=== PATIENT | female | born 1940 | race Caucasian/White ===

== ENCOUNTER 2022-08-23 15:39 | Inpatient (IN) ==
[2022-08-23] MEDS ORDERED: SODIUM CHLORIDE 0.9% 1000ML 1,000 ML IV ONE (16:21)
--- NOTE | 2022-08-23 16:21 | Emergency Department Note ---
History of Present Illness General Chief complaint: Abdominal Pain Stated complaint: AB PAIN Time Seen by Provider: 08/23/22 16:06 History of Present Illness Maximum Pain Intensity: 3 82-year-old female presents to the ED with a chief complaint, per the half-way staff of a distended abdomen. The patient has a history of dementia. She is a poor historian. She is unable to provide any information. When questioned, she states that she feels fine. Home Medications Medication Instructions Recorded Confirmed Type acetaminophen 325 mg tablet 650 mg PO DAILY #90 tabs 04/03/19 08/23/22 Rx aspirin 81 mg chewable tablet 81 mg PO DAILY #90 tabs 04/03/19 08/23/22 Rx calcium carbonate 600 mg-vitamin 1 cap PO BID #180 caps 04/03/19 08/23/22 Rx D3 10 mcg (400 unit) capsule cetirizine 10 mg tablet 10 mg PO DAILY #90 tabs 04/03/19 08/23/22 Rx ergocalciferol (vitamin D2) 1,250 50,000 units PO WK #12 caps 04/22/19 08/23/22 Rx mcg (50,000 unit) capsule donepezil 10 mg tablet 10 mg PO DAILY 12/11/20 08/23/22 History acetaminophen 325 mg tablet 650 mg PO Q6 PRN Fever Or Pain 08/23/22 08/23/22 History doxepin 6 mg tablet 6 mg PO HS 08/23/22 08/23/22 History levothyroxine 75 mcg tablet 75 mcg PO DAILY 08/23/22 08/23/22 History melatonin 3 mg tablet 3 mg PO HS 08/23/22 08/23/22 History memantine 10 mg tablet 10 mg PO Q12 08/23/22 08/23/22 History cixiuuflwhhm-wolykunz-umkzjk 1 tab PO DAILY 08/23/22 08/23/22 History tablet (Multivitamin 50 Plus tablet) nitroglycerin 0.4 mg sublingual 0.4 mg sublingual Q5M PRN Chest 08/23/22 08/23/22 History tablet Pain potassium chloride 20 mEq 40 meq PO BID 08/23/22 08/23/22 History tablet,extended release(part/cryst) protein supplement 1 ea PO DAILY 08/23/22 08/23/22 History Allergies Allergy/AdvReac Type Severity Reaction Status Date / Time No Known Allergies Allergy Unverified 08/23/22 18:06 Past Med/Surg History Medical History (Updated 08/23/22 @ 23:39 by Raúl Busby DO) Anxiety Arteriosclerosis of coronary artery Benign essential hypertension Dementia Depression History of esophageal reflux Hyperlipidemia Insomnia Osteoporosis Vitamin D deficiency Social History (Updated 08/23/22 @ 21:25 by AUGUSTINE Newell) Smoking Status: Former smoker Hx Alcohol Use: No Preferred Language: [place] marital status: / Current Living Situation: Other Current Living Situation Comment: Assisted Living - [facility] current occupational status: retired Feels Safe at Home: Yes Childhood Exposure to Second-Hand Smoke: No Physical Activity Frequency: Daily Review of Systems A total of 10 systems reviewed and were otherwise negative Unobtainable due to cognitive status Physical Exam Vital Signs Vital Signs - 24 hr 08/23/22 15:14 08/23/22 17:12 Pulse Rate 117 H Pulse Rate [Left Finger] 124 H Pulse Rhythm Regular Pulse Strength Normal Respiratory Rate 20 24 Respiratory Effort / Characteristics Non-Labored Respiratory Depth Normal Respiratory Pattern Regular Blood Pressure 154/83 H Blood Pressure [Left Arm] 160/102 H Blood Pressure Mean 106 Blood Pressure Mean [Left Arm] 121 Blood Pressure Position [Left Arm] Lying Pulse Oximetry 92 94 Oxygen Delivery Method Room Air Sepsis Recent Fever Within 48 Hours No Sepsis New/Unexplained Change in Mental Status No Sepsis Action Taken by Nursing No Action Required CONSTITUTIONAL/VITAL SIGNS: Reviewed / noted above. GENERAL: Non-toxic in appearance. INTEGUMENTARY: Warm, dry, and [place]. HEAD: Normocephalic. EYES: without scleral icterus or trauma. ENT/OROPHARYNX: clear and moist. LYMPHADENOPATHY/NECK: Is supple without lymphadenopathy or meningismus. RESPIRATORY: Clear to auscultation bilaterally. No increased work of breathing. CARDIOVASCULAR: Regular rate and rhythm. GI/ABDOMEN: Distended tympanitic and mildly tender. EXTREMITIES: Warm and well perfused. NEUROLOGICAL: Intact without focal deficits. PSYCHIATRIC: normal affect. MUSCULOSKELETAL: Normally developed with good muscle tone. TRIAGE NURSING DOCUMENTATION REVIEWED. Course Administered Medications Propofol (Diprivan) 1,000 mg in 100 mls @ 9.756 mls/hr IV .[id number] ELIAS; Protocol Stop: 08/26/22 20:29 Last Titration: 08/23/22 22:32 Dose: 30 mcg/kg/min, 9.8 mls/hr Documented By: Titration: 08/23/22 22:26 Dose: 35 mcg/kg/min, 11.4 mls/hr Documented By: Titration: 08/23/22 21:20 Dose: 30 mcg/kg/min, 9.8 mls/hr Documented By: Titration: 08/23/22 21:08 Dose: 25 mcg/kg/min, 8.1 mls/hr Documented By: Admin: 08/23/22 20:43 Dose: 20 mcg/kg/min, 6.5 mls/hr Documented By: TMG Co-signed By: TP Lactated Ringer's (Lr) 1,000 mls @ 100 mls/hr IV .Q10H [facility] Stop: 09/22/22 20:36 Last Admin: 08/23/22 21:08 Dose: 100 mls/hr Documented By: TMG Cefoxitin Sodium 2,000 mg/ (Dextrose) 60 mls @ 100 mls/hr IV Q6H [facility] Stop: 09/02/22 20:59 Last Admin: 08/23/22 23:20 Dose: 100 mls/hr Documented By: TMG Fentanyl Citrate (Fentanyl Citrate) 2,500 mcg in 250 mls @ 2.5 mls/hr IV .Q96H [facility]; Protocol Stop: 09/06/22 21:59 Last Admin: 08/23/22 22:26 Dose: 25 mcg/hr, 2.5 mls/hr Documented By: TMG Co-signed By: JT Discontinued Medications Fentanyl Citrate (Fentanyl Citrate 100 Mcg/2 Ml Vial) 25 mcg IV Q5M PRN PRN Reason: PACU Use Only-Pain Stop: 08/24/22 02:49 Last Admin: 08/23/22 20:43 Dose: 25 mcg Documented By: TMG Fentanyl Citrate (Fentanyl Citrate 100 Mcg/2 Ml Vial) 25 mcg IV Q1H PRN PRN Reason: Moderate Pain (4,5,6) on NRS Stop: 09/06/22 21:41 Last Admin: 08/23/22 21:56 Dose: 25 mcg Documented By: TMG Sodium Chloride (Nss 1000ml) 1,000 mls @ 999 mls/hr IV .Q1H1M ONE Stop: 08/23/22 17:21 Last Admin: 08/23/22 17:12 Dose: 999 mls/hr Documented By: JESSICA Potassium Chloride (K Lio / Wtr) 10 meq in 100 mls @ 100 mls/hr IV ONE ONE; Protocol Stop: 08/23/22 18:15 Last Admin: 08/23/22 17:53 Dose: 100 mls/hr Documented By: ALICIA Potassium Chloride (K Lio / Wtr) 10 meq in 100 mls @ 100 mls/hr IV Q1H [facility]IAS Stop: 08/23/22 21:59 Last Admin: 08/23/22 23:18 Dose: Not Given Documented By: Admin: 08/23/22 23:18 Dose: Not Given Documented By: Admin: 08/23/22 22:20 Dose: Not Given Documented By: TMG Pantoprazole Sodium 40 mg/ (Syringe) 10 mls @ 5 mls/min IV NOW ONE Stop: 08/23/22 21:31 Last Admin: 08/23/22 23:20 Dose: 5 mls/min Documented By: TMG Norepinephrine Bitartrate (Norepinephrine/D5w 4 Mg/250 Ml) Confirm Administered Dose 4 mg IV .STK-MED ONE Stop: 08/23/22 22:25 Last Admin: 08/23/22 23:35 Dose: Not Given Documented By: TMG Medical Decision Making Differential Diagnosis Differential considered: pancreatitis, hepatitis, acute cholecystitis, AAA, UTI, pyelonephritis, kidney stones, appendicitis, diverticulitis, shingles, bowel obstruction, mesenteric ischemia, intussusception,hernia Medical Records Attestation: I reviewed the patient's medical records. Home Medications Current Medication List: was personally reviewed by me Laboratory Data Result diagrams: 08/23/22 15:50 08/23/22 22:20 Lab Results 08/23/22 08/23/22 08/23/22 Range/Units 15:50 15:50 15:50 WBC 23.65 H (4.8-10.8) K/ul RBC 5.31 H (3.93-5.22) M/uL Hgb 15.5 (12.0-16.0) g/dl Hct 46.9 H (34.1-44.9) % MCV 88.3 (80.0-100.0) fL MCH 29.2 (25.0-34.0) pg MCHC 33.0 (32.0-36.0) g/dL RDW Std Deviation 46.2 (36.4-46.3) fL RDW Coeff of Jeremi 14.4 (11.5-14.5) % Plt Count 248 (130-400) K/uL MPV 11.0 (9.4-12.3) fL Immature Gran % (Auto) 0.6 % Neut % (Auto) 89.4 % Lymph % (Auto) 2.0 % [place] % (Auto) 7.7 % Eos % (Auto) 0.0 % Baso % (Auto) 0.3 % Neut # (Auto) 21.14 H (1.4-6.5) K/uL Lymph # (Auto) 0.47 L (1.2-3.4) K/uL [place] # (Auto) 1.82 H (0.24-0.82) K/uL Eos # (Auto) 0.01 (0-0.50) K/uL Baso # (Auto) 0.07 (0-0.2) K/uL Immature Gran # (Auto) 0.14 H (0.00-0.02) K/uL Sodium 134 L (136-145) mmol/L Potassium 2.3 L* (3.5-5.1) mmol/L Chloride 100 (98-107) mmol/L Carbon Dioxide 23 (21-32) mmol/L Anion Gap 11 (3-11) BUN 23 (6-23) mg/dl Creatinine 0.77 (0.6-1.2) mg/dl Est Cr Clr Drug Dosing 41.9 ml/min Est GFR ( Amer) 84.5 ml/min Est GFR (Non-Af Amer) 72.9 ml/min BUN/Creatinine Ratio 29.9 H (10-20) Glucose 221 H (70-99(Fasting)) mg/dl Calcium 9.8 (8.5-10.1) mg/dl Total Bilirubin 0.8 (0.2-1.0) mg/dl AST 17 (13-39) U/L ALT 16 (7-52) U/L Alkaline Phosphatase 68 (34-104) U/L Total Protein 7.4 (6.0-8.3) gm/dl Albumin 4.2 (3.4-5.0) gm/dl Globulin 3.2 (2.5-4.0) gm/dl Albumin/Globulin Ratio 1.3 (0.9-2) Lipase 6 L (11-82) U/L SARS-CoV-2 (PCR) (Negative) Influenza Type A (PCR) (Neg) Influenza Type B (PCR) (Neg) RSV (RT-PCR) (Neg) 08/23/22 Range/Units 17:28 WBC (4.8-10.8) K/ul RBC (3.93-5.22) M/uL Hgb (12.0-16.0) g/dl Hct (34.1-44.9) % MCV (80.0-100.0) fL MCH (25.0-34.0) pg MCHC (32.0-36.0) g/dL RDW Std Deviation (36.4-46.3) fL RDW Coeff of Jeremi (11.5-14.5) % Plt Count (130-400) K/uL MPV (9.4-12.3) fL Immature Gran % (Auto) % Neut % (Auto) % Lymph % (Auto) % [place] % (Auto) % Eos % (Auto) % Baso % (Auto) % Neut # (Auto) (1.4-6.5) K/uL Lymph # (Auto) (1.2-3.4) K/uL [place] # (Auto) (0.24-0.82) K/uL Eos # (Auto) (0-0.50) K/uL Baso # (Auto) (0-0.2) K/uL Immature Gran # (Auto) (0.00-0.02) K/uL Sodium (136-145) mmol/L Potassium (3.5-5.1) mmol/L Chloride (98-107) mmol/L Carbon Dioxide (21-32) mmol/L Anion Gap (3-11) BUN (6-23) mg/dl Creatinine (0.6-1.2) mg/dl Est Cr Clr Drug Dosing ml/min Est GFR ( Amer) ml/min Est GFR (Non-Af Amer) ml/min BUN/Creatinine Ratio (10-20) Glucose (70-99(Fasting)) mg/dl Calcium (8.5-10.1) mg/dl Total Bilirubin (0.2-1.0) mg/dl AST (13-39) U/L ALT (7-52) U/L Alkaline Phosphatase (34-104) U/L Total Protein (6.0-8.3) gm/dl Albumin (3.4-5.0) gm/dl Globulin (2.5-4.0) gm/dl Albumin/Globulin Ratio (0.9-2) Lipase (11-82) U/L SARS-CoV-2 (PCR) NEGATIVE (Negative) Influenza Type A (PCR) Negative (Neg) Influenza Type B (PCR) Negative (Neg) RSV (RT-PCR) Negative (Neg) Imaging Data Radiologist's Impression: Abdomen/Pelvis CT 08/23/22 16:[address] WITHOUT CONTRAST CT DOSE: 393.80 mGy.cm HISTORY: Abdominal distention. TECHNIQUE: Multiaxial CT images of the abdomen and pelvis were performed without contrast. A dose lowering technique was utilized adhering to the principles of ALARA. COMPARISON STUDY: None. FINDINGS: Motion artifact. The lung bases appear clear. There is mild elevation of the left hemidiaphragm. Mildly distended and fluid-filled distal esophagus. No pneumoperitoneum. No pneumatosis. Old, healed bilateral pubic bone fractures are noted. Partially visualized healing midsternal fracture. The unenhanced liver, gallbladder, spleen, adrenal glands, left kidney, and pancreas are unremarkable. There is a 1.7 cm exophytic hypodense lesion within the right kidney. This favors a cyst. No retroperitoneal lymphadenopathy. Calcified plaque within the normal caliber abdominal aorta. The bladder is unremarkable. The uterus is surgically absent. Severely distended sigmoid colon with a transition point at the distal sigmoid colon best seen on image 279. Therefore, this is consistent with a high-grade distal large bowel obstruction with the con figuration suggesting a sigmoid volvulus. There is mild edema adjacent to the severely distended sigmoid colon. No evidence for portal venous gas at this time. The distended sigmoid colon measures up to 13 cm in diameter. A few gas- filled mildly distended loops of small bowel are seen within the abdomen. The majority the colon is filled with gas and fluid. IMPRESSION: Severely distended sigmoid colon with a transition point at the distal sigmoid colon as described above. Therefore, this is consistent with a high-grade distal large bowel obstruction with the configuration suggesting a sigmoid volvulus. Urgent surgical consultation recommended. ACT 112: Negative or not required by law. Electronically signed by: Edwin Diamond M.D. 08/23/2022 5:02 PM MDM Narrative 82-year-old female presents with abdominal distention. She has dementia and is unreliable with regards to history and complaint. She does have a distended tympanitic abdomen on exam. Seems to be a little tender. CT scan shows a sigmoid volvulus. Reports her count is elevated. Chemistry panel was unremarkable. Patient was seen by general surgery and taken to the OR. Impression & Plan Bowel obstruction, Sigmoid volvulus Discharge Plan Visit Data Chief Complaint: Abdominal Pain Stated Complaint: AB PAIN ED Provider: Raúl Busby Discharge Problem: Bowel obstruction, Sigmoid volvulus Discharge Instructions Interventions: ED Discharge Assessment Last Done: 08/23/22 18:54
[2022-08-23 16:39] LABS: Basophils # (auto) 0.07 K/uL (0-0.2); Basophils % (auto) 0.3 %; Eosinophils # (auto) 0.01 K/uL (0-0.50); Hematocrit (blood only) 46.9 % (34.1-44.9); Hemoglobin 15.5 g/dl (12.0-16.0); Immature Granulocytes # (auto) 0.14 K/uL (0.00-0.02); Immature Granulocytes % (auto) 0.6 %; Lymphocytes # (auto) 0.47 K/uL (1.2-3.4); Mean Corpuscular Hemoglobin 29.2 pg (25.0-34.0); Mean Corpuscular Volume 88.3 fL (80.0-100.0); Monocytes # (auto) 1.82 K/uL (0.24-0.82); Monocytes % (auto) 7.7 %; Neutrophils # (auto) 21.14 K/uL (1.4-6.5); Neutrophils % (auto) 89.4 %; Platelet Count 248 K/uL (130-400); RDW Coefficient of Variation 14.4 % (11.5-14.5); RDW Standard Deviation 46.2 fL (36.4-46.3); Red Blood Count 5.31 M/uL (3.93-5.22); White Blood Count 23.65 K/ul (4.8-10.8)
[2022-08-23 17:03] LABS: Albumin Globulin Ratio 1.3 (0.9-2); Albumin Level 4.2 gm/dl (3.4-5.0); BUN Creatinine Ratio 29.9 (10-20); Bilirubin,Total 0.8 mg/dl (0.2-1.0); Calcium 9.8 mg/dl (8.5-10.1); Creatinine Clr Calc Pharmacy 41.9 ml/min; Est GFR (African American) 84.5 ml/min; Est GFR (Non-African American) 72.9 ml/min; Globulin 3.2 gm/dl (2.5-4.0); Total Protein 7.4 gm/dl (6.0-8.3)
--- NOTE | 2022-08-23 17:04 | CT Scan Report ---
ABDOMEN AND PELVIS CT WITHOUT CONTRAST CT DOSE: 393.80 mGy.cm HISTORY: Abdominal distention. TECHNIQUE: Multiaxial CT images of the abdomen and pelvis were performed without contrast. A dose lo wering technique was utilized adhering to the principles of ALARA. COMPARISON STUDY: None. FINDINGS: Motion artifact. The lung bases appear clear. There is mild elevation of the left hemidiaph ragm. Mildly distended and fluid-filled distal esophagus. No pneumoperitoneum. No pneumatosis. Old, h ealed bilateral pubic bone fractures are noted. Partially visualized healing midsternal fracture. The unenhanced liver, gallbladder, spleen, adrenal glands, left kidney, and pancreas are unremarkable. T here is a 1.7 cm exophytic hypodense lesion within the right kidney. This favors a cyst. No retroperi toneal lymphadenopathy. Calcified plaque within the normal caliber abdominal aorta. The bladder is un remarkable. The uterus is surgically absent. Severely distended sigmoid colon with a transition point at the distal sigmoid colon best seen on image 279. Therefore, this is consistent with a high-grade distal large bowel obstruction with the configuration suggesting a sigmoid volvulus. There is mild ed max adjacent to the severely distended sigmoid colon. No evidence for portal venous gas at this time. The distended sigmoid colon measures up to 13 cm in diameter. A few gas-filled mildly distended loop s of small bowel are seen within the abdomen. The majority the colon is filled with gas and fluid. IMPRESSION: Severely distended sigmoid colon with a transition point at the distal sigmoid colon as described abo ve. Therefore, this is consistent with a high-grade distal large bowel obstruction with the configura tion suggesting a sigmoid volvulus. Urgent surgical consultation recommended. ACT 112: Negative or not required by law. Electronically signed by: Edwin Diamond M.D. 08/23/2022 5:02 PM
[2022-08-23] MEDS ORDERED: POTASSIUM CHLORIDE / WTR 10 MEQ/100 ML PLCT IV ONE (17:16)
[2022-08-23 17:18] LABS: Potassium 2.3 mmol/L (3.5-5.1)
--- NOTE | 2022-08-23 17:33 | History & Physical Report ---
Date of Service August 23, 2022 Assessment & Plan (1) Sigmoid volvulus: Plan: Patient seen CT scan reviewed. Patient at extremely high risk of colonic perforation. This would not be amenable to colonoscopic decompression. I discussion with patient's son to him. This will need to be resected with likely a permanent colostomy. We discussed bleeding infection injury to other organs such as ureter bladder bowel etc. We discussed DVT PE MA CVA etc. He gave con sent. We will proceed with exploratory laparotomy partial bowel resection with anticipated colostomy as soon as possible. (2) Dementia: Dementia behavioral disturbance: without behavioral disturbance Dementia type: unspecified type Qualified Code(s): F03.90 - Unspecified dementia without behavioral disturbance History of Present Illness Primary Care Provider: [facility] Patient brought in from Center care with abdominal pain and distention. Patient with dementia and is unable to give history. Allergies Allergy/AdvReac Type Severity Reaction Status Date / Time No Known Allergies Allergy Unverified 12/11/20 15:06 Home Medications Medication Instructions Recorded Confirmed Type dextromethorphan polistirex 30 10 ml PO Q12H PRN cough #148 mL 02/02/19 12/11/20 Rx mg/5 mL oral susp ext.release 12hr (Delsym 12 hour) acetaminophen 325 mg tablet 650 mg PO DAILY #90 tabs 04/03/19 12/11/20 Rx aspirin 81 mg chewable tablet 81 mg PO DAILY #90 tabs 04/03/19 12/11/20 Rx calcium carbonate 600 mg-vitamin 1 cap PO BID #180 caps 04/03/19 12/11/20 Rx D3 10 mcg (400 unit) capsule cetirizine 10 mg tablet 10 mg PO DAILY #90 tabs 04/03/19 12/11/20 Rx fluticasone propionate 50 2 sprays intranasal DAILY #47.4 04/03/19 12/11/20 Rx mcg/actuation nasal grams spray,suspension memantine 10 mg tablet 10 mg PO BID #180 tabs 04/03/19 12/11/20 Rx mirtazapine 15 mg tablet 15 mg PO HS #90 tabs 04/03/19 12/11/20 Rx nitroglycerin 0.4 mg sublingual 0.4 mg sublingual Q5M #20 tabs 04/03/19 12/11/20 Rx tablet ergocalciferol (vitamin D2) 1,250 50,000 units PO WK #12 caps 04/22/19 12/11/20 Rx mcg (50,000 unit) capsule Saccharomyces boulardii 250 mg 250 mg PO BID #20 caps 12/11/20 Rx capsule (Florastor) alendronate 70 mg tablet 70 mg PO UD 12/11/20 12/11/20 History donepezil 10 mg tablet 10 mg PO DAILY 12/11/20 12/11/20 History doxepin 25 mg capsule 25 - 50 mg PO HS PRN sleep 12/11/20 12/11/20 History simvastatin 10 mg tablet 10 mg PO HS 12/11/20 12/11/20 History Past Med/Surg History Medical History (Updated 08/23/22 @ 17:38 by Lino Larson DO) Dementia Hyperlipidemia Social History Smoking Status: Unknown if ever smoked Hx Alcohol Use: No Preferred Language: Japanese marital status: / Current Living Situation: Other Current Living Situation Comment: Assisted Living - [facility] current occupational status: retired Feels Safe at Home: Yes Childhood Exposure to Second-Hand Smoke: No Physical Activity Frequency: Daily Review of Systems Patient with severe dementia unable to provide Physical Exam Physical Exam: Patient awake and alert but disoriented. Moderately uncomfortable. ENMT: Dry mucous membranes Respiratory: Clear to auscultation bilaterally Cardiovascular: Sinus tachycardia Gastrointestinal (Abdomen): Tympanitic. Severely distended. Acutely tender in all 4 quadrants Skin: Decreased turgor Results & Data ([facility]) Vital Signs (Past 12 Hours) Vital Signs Pulse Pulse Resp BP BP Pulse Ox O2 Del Method 08/23/22 17:12 124 H 24 160/102 H 94 08/23/22 15:14 117 H 20 154/83 H 92 Room Air
[2022-08-23] MEDS ORDERED: PROPOFOL IV EMULSION 10 MG/ML 20 ML VIAL IV ONE (18:19)
[2022-08-23] MEDS ORDERED: fentaNYL citrate 100 MCG/2 ML VIAL ONE (18:19)
[2022-08-23] MEDS ORDERED: SUCCINYLCHOLINE CHLORIDE 20 MG/ML 10 ML VIAL IV ONE (18:19)
[2022-08-23] MEDS ORDERED: LIDOCAINE 2% MPF LOCAL 5 ML VIAL INFIL ONE (18:19)
[2022-08-23] MEDS ORDERED: ROCURONIUM BROMIDE 10 MG/ML 5 ML VIAL IV ONE (18:19)
--- NOTE | 2022-08-23 18:41 | Anesthesiology Consultation ---
Date of Service August 23, 2022 Assessment & Plan Chart Review Chart Review: Acceptable Risk for Surgery Consults Requested none History Surgery Operation Date: 08/23/22 17:45 Proposed Procedures p Exploratory Laparotomy - Lino Larson DO Operation Date: 08/24/22 09:00 Proposed Procedures p Exploratory Laparotomy - Lino Larson DO s Possible Bowel Resection Possible Colostomy - Lino Larson DO Height/Weight Height: 5 ft Weight: 54.2 kg Allergies Allergy/AdvReac Type Severity Reaction Status Date / Time No Known Allergies Allergy Unverified 08/23/22 18:06 Medications Home Medications Medication Instructions Recorded Confirmed Last Taken acetaminophen 325 mg tablet 650 mg PO DAILY #90 tabs 04/03/19 08/23/22 08/23/22 am aspirin 81 mg chewable tablet 81 mg PO DAILY #90 tabs 04/03/19 08/23/22 08/22/22 am calcium carbonate 600 mg-vitamin 1 cap PO BID #180 caps 04/03/19 08/23/22 08/23/22 D3 10 mcg (400 unit) capsule am cetirizine 10 mg tablet 10 mg PO DAILY #90 tabs 04/03/19 08/23/22 08/23/22 am ergocalciferol (vitamin D2) 1,250 50,000 units PO WK #12 caps 04/22/19 08/23/22 08/17/22 mcg (50,000 unit) capsule donepezil 10 mg tablet 10 mg PO DAILY 12/11/20 08/23/22 08/23/22 am acetaminophen 325 mg tablet 650 mg PO Q6 PRN Fever Or Pain 08/23/22 08/23/22 Unknown doxepin 6 mg tablet 6 mg PO HS 08/23/22 08/23/22 08/22/22 20:30 levothyroxine 75 mcg tablet 75 mcg PO DAILY 08/23/22 08/23/22 08/23/22 melatonin 3 mg tablet 3 mg PO HS 08/23/22 08/23/22 08/22/22 memantine 10 mg tablet 10 mg PO Q12 08/23/22 08/23/22 08/23/22 08:30 epfhecihbhiq-ivgubpno-xxvawu 1 tab PO DAILY 08/23/22 08/23/22 08/23/22 tablet (Multivitamin 50 Plus am tablet) nitroglycerin 0.4 mg sublingual 0.4 mg sublingual Q5M PRN Chest 08/23/22 08/23/22 Unknown tablet Pain potassium chloride 20 mEq 40 meq PO BID 08/23/22 08/23/22 Unknown tablet,extended release(part/cryst) protein supplement 1 ea PO DAILY 08/23/22 08/23/22 08/23/22 Past Medical History Medical History (Updated 08/23/22 @ 17:38 by Lino Larson, DO) Dementia Hyperlipidemia Social History Smoking Status: Unknown if ever smoked Hx Alcohol Use: No Physical Exam Vital Signs Last Vital Signs Pulse 124 H 08/23/22 17:12 Resp 24 08/23/22 17:12 BP 160/102 H 08/23/22 17:12 Pulse Ox 94 08/23/22 17:12 O2 Del Method 08/23/22 15:14 Testing Laboratory Results 08/23/22 15:50 08/23/22 15:50
[2022-08-23 18:42] LABS: Influenza A virus by PCR Negative (Neg); Influenza B virus by PCR Negative (Neg); RSV by PCR Negative (Neg); SARS CoV2 RNA(COVID-19) Ceph NEGATIVE (Negative)
[2022-08-23] MEDS ORDERED: fentaNYL citrate 100 MCG/2 ML VIAL IV PRN ×2 (18:49→21:42)
[2022-08-23] MEDS ORDERED: ePHEDrine sulfate 50 MG/ML AMP IV PRN (18:49)
[2022-08-23] MEDS ORDERED: PROMETHAZINE HCL 12.5 MG in SODIUM CHLORIDE 0.9% 50 ML IV PRN (18:49)
[2022-08-23] MEDS ORDERED: HYDROmorphone INJ 1 MG/ML SYRINGE IV PRN (18:49)
[2022-08-23] MEDS ORDERED: ATROPINE SULFATE 0.1 MG/ML 10ML SYR IV PRN (18:49)
[2022-08-23] MEDS ORDERED: ONDANSETRON INJ 2 MG/ML 2 ML VIAL IV PRN ×2 (18:49→20:37)
[2022-08-23] MEDS ORDERED: PHENYLEPHRINE 100MCG/ML 5ML SYR ONE (19:16)
[2022-08-23] MEDS ORDERED: ESMOLOL HCL INJ 10 MG/ML 10ML VIAL IV ONE (20:11)
[2022-08-23] MEDS ORDERED: GLUCOSE 10 TAB/TUBE PO PRN (20:30)
[2022-08-23] MEDS ORDERED: CARBOHYDRATES FOR HYPOGLYCEMIA PO PRN (20:30)
[2022-08-23] MEDS ORDERED: DEXTROSE 50% 50 ML SYRINGE IV PRN (20:30)
[2022-08-23] MEDS ORDERED: GLUCAGON FOR INJ 1 MG VIAL SQ PRN (20:30)
[2022-08-23] MEDS ORDERED: PROPOFOL BOLUS FROM BAG IV PRN (20:30)
[2022-08-23] MEDS ORDERED: STAT IV Infusion **Titration per Protocol STA ×2 (20:30→21:58)
[2022-08-23] MEDS ORDERED: GLUCOSE 40% GEL 15 GM TUBE PO PRN (20:30)
--- NOTE | 2022-08-23 20:34 | Critical Care Consultation ---
Date of Consultation August 23, 2022 Assessment & Plan (1) Sigmoid volvulus: (2) Endotracheally intubated: (3) Osteoporosis: (4) History of esophageal reflux: (5) Benign essential hypertension: (6) Hyperlipidemia: (7) Dementia: (8) Hypokalemia: (9) Elevated glucose level: Plan Reason Critically Ill: 82 YOF taken urgently to operating suite for severe sigmoid distention with high grade bowel obstruction and likely sigmoid volvus. Patient remained intubated following procedure and was transferred to ICU for follow on care. Continue with potassium and other electrolyte replacments, sedation and pain control. Neuro - Sedation for mechanical ventilation, acute pain from surgical procedure, Dementia, Depression CAM ICU: JANES - Patient with baseline dementia with record review shows a baseline of awareness to self and able to answer simple questions - Sedation with propofol, pain control with IV fentanyl while intubated - Daily sedation breaks - Likely high risk for ICU delirium - Continue Donepazil and Memantine when able to take PO - Continue Doxepin when able to take PO for her depression Cardiac - CAD history of, HTN, HLD, Tachycardia - Received 1.4 liters crystalloid in the OR- will continue with maintenance fluids- Ringers while NPO - Tachycardia multifactorial to include acute pain, mild hypovolemia, electrolyte disturbance- no evidence of hemodynamic instability or need for pressors- lactate on arrival - unsure of her CAD history or previous evaluations- can institute BB if needed for rate control if needed - pain control as above, continue supportive care- ECG is without any ST elevati ons or ectopy - ASA when able to take PO Respiratory - Intubated for surgical procedure, mechanically ventilated - Daily SBT and likely liberate from ventilator in morning - Xray reviewed by self- no pulmonary edema, adequate placement of ETT and NGT - ARDSnet ventilation strategy- 6ml/kg VT, wean Fio2 - Daily CXR while intubated GI - GERD - PPI while NPO RENAL/LYTES - Hypokalemia - acute on chronic hypokalemia- continue with IV replacement, no ectopy/ECG changes- - Ramirez to gravity - remove when extubated - UA on arrival ENDO - Elevated serum glucose without diagnosis of diabetes, Hypothyroidism - ICU hyperglycemia protocol- Goal < 180mg/DL - Follow Potassium levels - Hold Synthroid while NPO- convert to IV with reduction in dose if needed HEME - No acute needs ID - - emperic Mefoxin per surgical team- defer further abx to them at this time LINES/IV ACCESS - PIV, Ramirez, NGT, ETT Continue use of these lines DVT PROPHYLAXIS - SCDS, Hold on chemoprophylaxis at this time- likely institute in morning DISPO : ICU while intubated and mechanically ventilated Diet: NPO CODE Status: DNR/DNI GI Prophy- IV PPI I have personally spent 40 minutes of critical care time in the direct management of this patient. This is a life/limb threatening event. This includes time spent evaluating patient, direct bedside care, chart review, placing orders, interpretation of diagnostic studies, discussion with consultants, patient, and family members, as well as other required patient management activities. This time is exclusive of all separately billable procedures, and separate from and in addition to any other critical care service time. Thank you for allowing us to participate in the care of this patient. Please refer to my attending physician's documentation for any further recommendations. History of Present Illness Reason for Consultation: Intubated mechanically ventilated Requesting Physician: Lino Larson Attending Physician: Lino Larson, History of Present Illness 82 YOF resident at [facility]. Medical Problem list noted with Dementia, CAD, HTN, Anxiety, HLD, Insomnia, Osteopetrosis, Vitamin D Def. Patient presents for concerns of abdominal pain and distention. Patient POC is Thomas Odell. Patient was evaluated in the EMD with routine labs noting leukocytosis, and hypokalemia. CT scan of abdomen and pelvis was also performed noting severe distention of sigmoid colon and high grade large bowel obstruction with likely volvulus of sigmoid. The patient had urgent surgical consultation and patient was taken to the operating suite. Patient underwent exploratory laparotomy, reduction of sigmoid volvulus, sigmoid colon resection with endo colostomy. Patient was left intubated and transferred to the ICU. On arrival she is with 7.0 ETT at 21 teeth in good placement noted on Xray. She is with NGT to LIWS also in good placement noted on chest film go below diaphragm and directed to stomach. She was given 1.4 liters of crystalloid during the case and is making urine. Will continue with pain control, sedation, electrolyte replacement, hyperglycemia protocol with hopes of liberating from ventilator in the morning. Good compliance with ventilator, adequate SPO2 and EtCO2. Discussed CODE status with Thomas Medina- Patient is DNR/DNI. Allergies Allergy/AdvReac Type Severity Reaction Status Date / Time No Known Allergies Allergy Unverified 08/23/22 18:06 Home Medications Medication Instructions Recorded Confirmed Type acetaminophen 325 mg tablet 650 mg PO DAILY #90 tabs 04/03/19 08/23/22 Rx aspirin 81 mg chewable tablet 81 mg PO DAILY #90 tabs 04/03/19 08/23/22 Rx calcium carbonate 600 mg-vitamin 1 cap PO BID #180 caps 04/03/19 08/23/22 Rx D3 10 mcg (400 unit) capsule cetirizine 10 mg tablet 10 mg PO DAILY #90 tabs 04/03/19 08/23/22 Rx ergocalciferol (vitamin D2) 1,250 50,000 units PO WK #12 caps 04/22/19 08/23/22 Rx mcg (50,000 unit) capsule donepezil 10 mg tablet 10 mg PO DAILY 12/11/20 08/23/22 History acetaminophen 325 mg tablet 650 mg PO Q6 PRN Fever Or Pain 08/23/22 08/23/22 History doxepin 6 mg tablet 6 mg PO HS 08/23/22 08/23/22 History levothyroxine 75 mcg tablet 75 mcg PO DAILY 08/23/22 08/23/22 History melatonin 3 mg tablet 3 mg PO HS 08/23/22 08/23/22 History memantine 10 mg tablet 10 mg PO Q12 08/23/22 08/23/22 History wonmpzkmxcmf-xhbkvxpl-ucqhem 1 tab PO DAILY 08/23/22 08/23/22 History tablet (Multivitamin 50 Plus tablet) nitroglycerin 0.4 mg sublingual 0.4 mg sublingual Q5M PRN Chest 08/23/22 08/23/22 History tablet Pain potassium chloride 20 mEq 40 meq PO BID 08/23/22 08/23/22 History tablet,extended release(part/cryst) protein supplement 1 ea PO DAILY 08/23/22 08/23/22 History Patient History Medical History (Updated 08/23/22 @ 21:03 by AUGUSTINE Newell) Anxiety Arteriosclerosis of coronary artery Benign essential hypertension Dementia Depression History of esophageal reflux Hyperlipidemia Insomnia Osteoporosis Vitamin D deficiency Social History (Updated 08/23/22 @ 21:25 by DILAN Newell Smoking Status: Former smoker Hx Alcohol Use: No Preferred Language: Sammarinese marital status: / Current Living Situation: Other Current Living Situation Comment: Assisted Living - [facility] current occupational status: retired Feels Safe at Home: Yes Childhood Exposure to Second-Hand Smoke: No Physical Activity Frequency: Daily Review of Systems Review of Systems: REVIEW OF SYSTEMS: Unable to obtain secondary to sedation and mechanical ventilation Physical Exam Physical Exam: PHYSICAL EXAM: General: frail appearing, sedated Head: Normocephalic, atraumatic ENT: Hx of lens implant to left eye, neck supple, mucous membranes dry Neuro: sedated and ventilated, tongues at ETT, localizes pain, prior to re-sedation Chest: equal rise and fall of the chest, no accessory muscle use, good ventilation thorough all lung hicks Cardiac: Regular rate and rhythm, telemetry reviewed- sinus tachycardia, skin warm dry, cap refill <3 seconds, peripheral pulses +2 no JVD, no murmur, no edema GI: absent bowel sounds, distended but soft, midline incision with dressing in place- no strike through, ostomy in place- pink in appearance- appliance on : Ramirez to gravity Results & Data Results & Data ([facility]) Vital Signs (Past 12 Hours) Vital Signs Pulse Pulse Resp BP BP Pulse Ox O2 Del Method 08/23/22 17:12 124 H 24 160/102 H 94 08/23/22 15:14 117 H 20 154/83 H 92 Room Air Laboratory Results Abnormal lab results 08/23/22 08/23/22 08/23/22 Range/Units 15:50 15:50 15:50 WBC 23.65 H (4.8-10.8) K/ul RBC 5.31 H (3.93-5.22) M/uL Hct 46.9 H (34.1-44.9) % Neut # (Auto) 21.14 H (1.4-6.5) K/uL Lymph # (Auto) 0.47 L (1.2-3.4) K/uL Prentiss # (Auto) 1.82 H (0.24-0.82) K/uL Immature Gran # (Auto) 0.14 H (0.00-0.02) K/uL Sodium 134 L (136-145) mmol/L Potassium 2.3 L* (3.5-5.1) mmol/L BUN/Creatinine Ratio 29.9 H (10-20) Glucose 221 H (70-99(Fasting)) mg/dl Lipase 6 L (11-82) U/L Diagnostic Findings Abdomen/Pelvis CT 08/23/22 16:[address] WITHOUT CONTRAST CT DOSE: 393.80 mGy.cm HISTORY: Abdominal distention. TECHNIQUE: Multiaxial CT images of the abdomen and pelvis were performed without contrast. A dose lowering technique was utilized adhering to the principles of ALARA. COMPARISON STUDY: None. FINDINGS: Motion artifact. The lung bases appear clear. There is mild elevation of the left hemidiaphragm. Mildly distended and fluid-filled distal esophagus. No pneumoperitoneum. No pneumatosis. Old, healed bilateral pubic bone fractures are noted. Partially visualized healing midsternal fracture. The unenhanced liver, gallbladder, spleen, adrenal glands, left kidney, and pancreas are unremarkable. There is a 1.7 cm exophytic hypodense lesion within the right kidney. This favors a cyst. No retroperitoneal lymphadenopathy. Calcified plaque within the normal caliber abdominal aorta. The bladder is unremarkable. The uterus is surgically absent. Severely distended sigmoid colon with a transition point at the distal sigmoid colon best seen on image 279. Therefore, this is consistent with a high-grade distal large bowel obstruction with the configuration suggesting a sigmoid volvulus. There is mild edema adjacent to the severely distended sigmoid colon. No evidence for portal venous gas at this time. The distended sigmoid colon measures up to 13 cm in diameter. A few gas- filled mildly distended loops of small bowel are seen within the abdomen. The majority the colon is filled with gas and fluid. IMPRESSION: Severely distended sigmoid colon with a transition point at the distal sigmoid colon as described above. Therefore, this is consistent with a high-grade distal large bowel obstruction with the configuration suggesting a sigmoid volvulus. Urgent surgical consultation recommended. ACT 112: Negative or not required by law. Electronically signed by: Edwin Diamond M.D. 08/23/2022 5:02 PM Chest X-Ray 08/23/22 20:27 XR chest 1V portable CLINICAL HISTORY: ET tube placement TECHNIQUE: Single frontal radiograph of the chest was obtained. Comparison: Comparison is made to chest radiograph 12/11/2020 FINDINGS: Endotracheal tube terminates 3 cm from the brianda. Enteric tube tip and side- port lie below the diaphragm. Calcified aortic knob is seen. The lungs are clear. No evidence of pleural effusion or pneumothorax. IMPRESSION: Satisfactory appearance of endotracheal and enteric tubes. ACT 112: Negative or not required by law. Electronically signed by: Nasir Sauceda M.D. 08/23/2022 8:48 PM Medications Administered Home Medications acetaminophen 325 mg tablet 650 mg PO DAILY #90 tabs 04/03/19 [Rx Confirmed 08/23/22] aspirin 81 mg chewable tablet 81 mg PO DAILY #90 tabs 04/03/19 [Rx Confirmed 08/23/22] calcium carbonate 600 mg-vitamin D3 10 mcg (400 unit) capsule 1 cap PO BID #180 caps 04/03/19 [Rx Confirmed 08/23/22] cetirizine 10 mg tablet 10 mg PO DAILY #90 tabs 04/03/19 [Rx Confirmed 08/23/22] ergocalciferol (vitamin D2) 1,250 mcg (50,000 unit) capsule 50,000 units PO WK #12 caps 04/22/19 [Rx Confirmed 08/23/22] donepezil 10 mg tablet 10 mg PO DAILY 12/11/20 [History Confirmed 08/23/22] acetaminophen 325 mg tablet 650 mg PO Q6 PRN Fever Or Pain 08/23/22 [History Confirmed 08/23/22] doxepin 6 mg tablet 6 mg PO HS 08/23/22 [History Confirmed 08/23/22] levothyroxine 75 mcg tablet 75 mcg PO DAILY 08/23/22 [History Confirmed 08/23/22] melatonin 3 mg tablet 3 mg PO HS 08/23/22 [History Confirmed 08/23/22] memantine 10 mg tablet 10 mg PO Q12 08/23/22 [History Confirmed 08/23/22] hycxjnnmbyhy-dmatbroi-tthmbs tablet (Multivitamin 50 Plus tablet) 1 tab PO DAILY 08/23/22 [History Confirmed 08/23/22] nitroglycerin 0.4 mg sublingual tablet 0.4 mg sublingual Q5M PRN Chest Pain 08/23/22 [History Confirmed 08/23/22] potassium chloride 20 mEq tablet,extended release(part/cryst) 40 meq PO BID 08/23/22 [History Confirmed 08/23/22] protein supplement 1 ea PO DAILY 08/23/22 [History Confirmed 08/23/22] Active Medications Atropine Sulfate (Atropine Sulfate 0.1 Mg/Ml 10ml Syr) 0.5 mg IV Q1M PRN PRN Reason: PACU Use-HR<40 &/or Bradycardi Stop: 08/24/22 02:49 Dextrose (Dextrose 50% 50 Ml Syringe) 25 - 50 ml IV UD PRN; Protocol PRN Reason: Hypoglycemia Protocol Stop: 09/22/22 20:29 Ephedrine Sulfate (Ephedrine Sulfate 50 Mg/Ml Amp) 5 mg IV Q5M PRN PRN Reason: PACU Use Only-SBP<90 mmHg Stop: 08/24/22 02:49 Fentanyl Citrate (Fentanyl Citrate 100 Mcg/2 Ml Vial) 25 mcg IV Q5M PRN PRN Reason: PACU Use Only-Pain Stop: 08/24/22 02:49 Last Admin: 08/23/22 20:43 Dose: 25 mcg Glucagon (Glucagon For Inj 1 Mg Vial) 1 mg SQ UD PRN; Protocol PRN Reason: Hypoglycemia Protocol Stop: 09/22/22 20:29 Glucose (Glucose 40% Gel 15 Gm Tube) 15 - 30 gm PO UD PRN; Protocol PRN Reason: Hypoglycemia Protocol Stop: 09/22/22 20:29 Glucose (Glucose 10 Tab/Tube) 4 - 8 tab PO UD PRN; Protocol PRN Reason: Hypoglycemia Treatment Stop: 09/22/22 20:29 Hydromorphone HCl (Hydromorphone Inj 1 Mg/Ml Syringe) 0.25 mg IV Q5M PRN PRN Reason: PACU Use Only-Pain Stop: 08/24/22 02:49 Potassium Chloride (K Lio / Wtr) 10 meq in 100 mls @ 100 mls/hr IV Q1H ELIAS Stop: 08/23/22 21:59 Promethazine HCl 12.5 mg/ (Sodium Chloride) 50.5 mls @ 204 mls/hr IV ONCE PRN PRN Reason: PACU Use Only-Nausea/Vomiting Stop: 08/24/22 02:49 Propofol (Diprivan) 1,000 mg in 100 mls @ 6.504 mls/hr IV .[id number] ELIAS; Protocol Stop: 08/26/22 20:29 Last Admin: 08/23/22 20:43 Dose: 20 mcg/kg/min, 6.5 mls/hr Lactated Ringer's (Lr) 1,000 mls @ 100 mls/hr IV .Q10H ELIAS Stop: 09/22/22 20:36 Acetaminophen (Ofirmev) 1,000 mg in 100 mls @ 400 mls/hr IV Q8H PRN PRN Reason: Pain Stop: 08/26/22 20:36 Cefoxitin Sodium 2,000 mg/ (Dextrose) 60 mls @ 100 mls/hr IV Q6H ELIAS Stop: 09/02/22 20:59 Miscellaneous (Icu Electrolyte Replacement Protocol) 1 each N/A BID@,18 ELIAS; Protocol Stop: 08/31/22 05:59 Miscellaneous (Carbohydrates For Hypoglycemia ) 15 - 30 gm PO UD PRN PRN Reason: Hypoglycemia Protocol Stop: 09/22/22 20:29 Morphine Sulfate (Morphine Sulfate 4 Mg/Ml 1 Ml Carp\Vial) 3 mg IV Q3H PRN PRN Reason: Pain Stop: 09/06/22 20:36 Ondansetron HCl (Ondansetron Inj 2 Mg/Ml 2 Ml Vial) 4 mg IV ONCE PRN PRN Reason: PACU Use Only-Nausea/Vomiting Stop: 08/24/22 02:49 Ondansetron HCl (Ondansetron Inj 2 Mg/Ml 2 Ml Vial) 4 mg IV Q6H PRN PRN Reason: Nausea And Vomiting Stop: 09/22/22 20:36 Propofol (Propofol Bolus From Bag) 20 mg IV Q5M PRN PRN Reason: Sedation Stop: 08/26/22 20:29 ECG Additional Comments: Sinus tachycardia Otherwise normal ECG When compared with ECG of 11-DEC-2020 15:01, Vent. rate has increased BY 49 BPM Coding Level of Care Code Critical Care 1st 30-74 mins Diagnoses Sigmoid volvulus K56.2 Endotracheally intubated Z97.8 Osteoporosis M81.0 History of esophageal reflux Z87.19 Benign essential hypertension I10 Hyperlipidemia E78.5 Dementia F03.90 Dementia behavioral disturbance: without behavioral disturbance Dementia type: unspecified type Hypokalemia E87.6 Elevated glucose level R73.09 (1) Dementia Dementia behavioral disturbance: without behavioral disturbance Dementia type: unspecified type Qualified Code(s): F03.90 - Unspecified dementia without behavioral disturbance
[2022-08-23] MEDS ORDERED: MoRPHine SULFATE 4 MG/ML 1 ML CARP\\VIAL IV PRN (20:37)
--- NOTE | 2022-08-23 20:38 | Operative Report ---
PG Post Operative Report Pre & Post Diagnosis Operation Date: 08/23/22 17:45 Pre-Op Diagnosis: Sigmoid Volvulus Post-Op Diagnosis: Sigmoid Volvulus Operation Date: 08/24/22 09:00 <No data on this case meets the specified criteria> I identified the patient and participated in the time-out.: Yes Procedure Operation Date: 08/23/22 17:45 Actual Procedures p Exploratory Laparotomy, Reduction of sigmoid volvulus ,Sigmoid Colon Resection, End Colostomy, Repair of Umbilical Hernia(Not Applicable) - Lino Larson DO Operation Date: 08/24/22 09:00 <No data on this case meets the specified criteria> Surgeon Lino Larson DO Skiver Hand mary Mazariegos Estimated Blood Loss 25 Findings Consistent with Post-Op Diagnosis Specimens sigmoid colon Description of Procedure After informed consent was obtained the patient was taken to the operating room and placed in supine position. After successful intubation a nasogastric tube as well as a Moss catheter were both inserted. The abdomen was sterilely prepped and draped in usual fashion. I made a midline incision from above the umbilicus down around the left side to the suprapubic region. This was carried down through soft tissue using cautery. The anterior fascia was opened using cautery as well. Hemostats were used to elevate the peritoneum and a Metzenbaum scissor used to open the peritoneum. We extended this to both poles using cautery. Immediately there was a massively enlarged volvulized sigmoid colon. I was able to untwist it and deliver it out of the abdomen. The left and transverse colon was dilated as well although the cecum appeared to be normal size. The sigmoid colon was extremely redundant and floppy. Because of her age and comorbidities and not having a bowel prep I opted to perform a sigmoid colon resection with an end colostomy. I created a window in the mesentery of the left colon and transected the left colon using a MICHAEL purple cartridge 60 mm stapler. We then used the LigaSure device to take down the mesentery of the sigmoid colon down to the peritoneal reflection. I then transected the rectal stump distal to the dilated portion of sigmoid colon again using MICHAEL purple cartridge staplers. We then passed off the specimen. The rectal stump appeared to be intact. We ran the left colon transverse colon over to the cecum and other than some dilated areas no other gross abnormalities were noted. Small bowel appeared normal. We thoroughly irrigated the entire abdomen. There was adequate hemostasis. We made a circular incision in the left mid abdomen using cautery. A Mather clamp was used to deliver the left colon out through it without any tension. There was an umbilical hernia that was present and we incorporated the repair of that with our closure. We closed the fascia using 1 PDS starting at inferior pole and running it to the superior pole. Soft tissue was irrigated and skin was closed using skin melissa. A silver dressing was applied. We then matured the stoma in Becka fashion. An appliance was placed. The patient was transferred to the intensive care unit in guarded condition. My physician assistant secretary was present for the entire case was instrumental in assisting all aspects of the case including exposure of the bowel resection and colostomy formation. I attest to the content of the Intraoperative Record and any orders documented therein. Any exceptions are noted below.
[2022-08-23] MEDS: propofoL 1,000 MG/100 ML VIAL IV SCH (20:43)
--- NOTE | 2022-08-23 20:50 | XRay Report ---
XR chest 1V portable CLINICAL HISTORY: ET tube placement TECHNIQUE: Single frontal radiograph of the chest was obtained. Comparison: Comparison is made to chest radiograph 12/11/2020 FINDINGS: Endotracheal tube terminates 3 cm from the brianda. Enteric tube tip and side-port lie below the diaph ragm. Calcified aortic knob is seen. The lungs are clear. No evidence of pleural effusion or pneumoth orax. IMPRESSION: Satisfactory appearance of endotracheal and enteric tubes. ACT 112: Negative or not required by law. Electronically signed by: Nasir Sauceda M.D. 08/23/2022 8:48 PM
[2022-08-23] MEDS: LACTATED RINGER'S 1,000 ML IV SCH (21:08)
--- NOTE | 2022-08-23 21:09 | Anesthesiology Progress Note ---
Date of Service August 23, 2022 Anesthesia Post Procedure Vital Signs Vital Signs: Temp Pulse Pulse Resp BP BP BP 08/23/22 20:35 36.4 C L 117 H 29 H 194/99 H 08/23/22 20:30 36.4 C L 111 H 29 H 191/99 H 08/23/22 20:40 128 H 20 08/23/22 17:12 124 H 24 160/102 H 08/23/22 15:14 117 H 20 154/83 H Pulse Ox O2 Del Method FiO2 08/23/22 20:35 100 Mechanical Vent 80 08/23/22 20:30 100 Mechanical Vent 80 08/23/22 20:40 97 60 08/23/22 17:12 94 08/23/22 15:14 92 Room Air Pain Intensity Medial Abdomen: Pain Intensity: 3 Notes Mental Status: see notes below Nausea / Vomiting: adequately controlled Pain: adequately controlled Airway Patency, RR, SpO2: stable & adequate BP & HR: stable & adequate Hydration State: stable & adequate Anesthetic Complications: no major complications apparent Notes: Pt had expl lap, bowel resection, colostomy under GA. Pt presented tachycardic and oliguric. Not reversed at end. Transported to SICU at end placed on vent. Discussed with SICU staff. Plan mech vent, supportive care, wean as tolerated.
[2022-08-23 21:26] LABS: BUN Creatinine Ratio 22.1 (10-20); Creatinine Clr Calc Pharmacy 37.5 ml/min; Est GFR (African American) 73.9 ml/min; Est GFR (Non-African American) 63.8 ml/min
[2022-08-23] MEDS ORDERED: PANTOprazole 40 MG in SYRINGE 0 ML IV ONE (21:30)
[2022-08-23] MEDS ORDERED: fentaNYL BOLUS from BAG IV PRN (21:58)
[2022-08-23] MEDS ORDERED: fentaNYL citrate 2,500 MCG/250 ML BAG IV SCH (22:00)
[2022-08-23] MEDS: POTASSIUM CHLORIDE / WTR 10 MEQ/100 ML PLCT IV SCH ×2 (22:20→23:18)
[2022-08-23] MEDS ORDERED: NOREPINEPHRINE/D5W 4 MG/250 ML IV ONE (22:24)
[2022-08-23] MEDS: cefOXitin 2,000 MG in DEXTROSE 5% 50 ML IV SCH (23:20)
[2022-08-24 00:27] LABS: Appearance Urine Clear (Clear); Bacteria Urine Automated Negative (Negative); Bilirubin Urine Negative (Negative); Blood Urine 2+ (Negative); Color Urine Dark Yellow; Epithelial Cell Urine Auto 20-30 /lpf (0-5); Glucose Urine UA Negative (Negative); Ketones Urine Trace (Negative); Leukocyte Esterase Urine 1+ (Negative); Nitrite Urine Negative (Negative); Protein Urine 1+ (Negative); Specific Gravity Urine 1.032 (1.000-1.030); Urobilinogen Urine Negative (Negative); pH Urine 5.5 (4.5-7.5)
[2022-08-24] MEDS ORDERED: LACTATED RINGER'S 250 ML IV ONE (01:32)
[2022-08-24] MEDS ORDERED: STAT IV Infusion **Titration per Protocol STA (01:36)
[2022-08-24] MEDS: NOREPINEPHRINE/D5W 4 MG/250 ML PLCT IV SCH (02:31)
[2022-08-24] MEDS: cefOXitin 2,000 MG in DEXTROSE 5% 50 ML IV SCH ×3 (04:47→20:36)
[2022-08-24] MEDS: propofoL 1,000 MG/100 ML VIAL IV SCH (04:52)
[2022-08-24 06:08] LABS: Hematocrit (blood only) 44.7 % (34.1-44.9); Hemoglobin 14.6 g/dl (12.0-16.0); Mean Corpuscular Hemoglobin 28.6 pg (25.0-34.0); Mean Corpuscular Hgb Conc 32.7 g/dL (32.0-36.0); Mean Corpuscular Volume 87.6 fL (80.0-100.0); Mean Platelet Volume 10.8 fL (9.4-12.3); Platelet Count 250 K/uL (130-400); RDW Coefficient of Variation 14.6 % (11.5-14.5); RDW Standard Deviation 47.2 fL (36.4-46.3)
[2022-08-24 06:45] LABS: BUN Creatinine Ratio 15.8 (10-20); Calcium 8.4 mg/dl (8.5-10.1); Creatinine Clr Calc Pharmacy 26.9 ml/min; Est GFR (African American) 49.4 ml/min; Est GFR (Non-African American) 42.7 ml/min; Magnesium 1.9 mg/dl (1.7-2.4)
[2022-08-24] MEDS ORDERED: fentaNYL BOLUS from BAG IV ONE (06:46)
[2022-08-24] MEDS ORDERED: MAGNESIUM SULFATE / D5W 1 GM/100 ML BAG IV ONE (06:47)
[2022-08-24 07:06] LABS: Basophils # (auto) 0.04 K/uL (0-0.2); Basophils % (auto) 0.2 %; Eosinophils # (auto) 0.01 K/uL (0-0.50); Eosinophils % (auto) 0.1 %; Immature Granulocytes # (auto) 0.12 K/uL (0.00-0.02); Immature Granulocytes % (auto) 0.7 %; Lymphocytes # (auto) 1.05 K/uL (1.2-3.4); Lymphocytes % (auto) 6.2 %; Monocytes # (auto) 0.78 K/uL (0.24-0.82); Monocytes % (auto) 4.6 %; Neutrophils % (auto) 88.2 %
[2022-08-24] MEDS: ICU ELECTROLYTE REPLACEMENT PROTOCOL SCH ×2 (07:39→18:29)
--- NOTE | 2022-08-24 07:50 | Critical Care Progress Note ---
Date of Service August 24, 2022 Assessment & Plan (1) Bowel obstruction: (2) Sigmoid volvulus: (3) Endotracheally intubated: (4) Dementia: (5) Hyperlipidemia: (6) Benign essential hypertension: Plan Reason Critically Ill: 82 YOF taken urgently to operating suite for severe s igmoid distention with high grade bowel obstruction and likely sigmoid volvus. Patient remained intubated following procedure and was transferred to ICU for follow on care. Continue with potassium and other electrolyte replacments, sedation and pain control. Neuro -Sedation for mechanical ventilation, acute pain from surgical procedure, Dementia, Depression - Patient with baseline dementia with record review shows a baseline of awareness to self and able to answer simple questions - Sedation with propofol, pain control with IV fentanyl while intubated - Daily sedation breaks - Likely high risk for ICU delirium - Continue Donepazil and Memantine when able to take PO - Continue Doxepin when able to take PO for her depression Cardiac -CAD history of, HTN, HLD -Received 1.4 liters crystalloid in the OR --S/p shock Multifactorial Sepsis plus sedation Has been off Levophed - unsure of her CAD history or previous evaluations- can institute BB if needed for rate control if needed - pain control as above, continue supportive care- ECG is without any ST elevations or ectopy - ASA when able to take PO Respiratory - Intubatedfor surgical procedure, mechanically ventilated - Daily SBT and likely liberate from ventilator in morning GI -GERD - PPI while NPO RENAL/LYTES - Monitor BUNs/creatinine Avoid nephrotoxic medications - Continue with Moss catheter ENDO - - ICU hyperglycemia protocol --Hypothyroidism Follow-up TSH HEME -No acute needs ID - --New onset fever Could be postop versus sepsis Blood cultures have been drawn on cefoxitin which has good antibiotic coverage --Prophylaxis VTE: IPC GI: Pantoprazole Lines: Peripheral Diet: N.p.o. Plan: In/out: +1.2 L, urine output 390 mL AB.42/39/73 on 50% FiO2 Chest x-ray from today is not show any infiltrate. Magnesium being replaced We will try to go down on the sedation and see if the patient wakes up and will give a trial of extubation. Potassium is high-normal. Keep an eye on it. Urine output has gone down continue with IV fluids. I will change it to Normosol I have personally spent 38 minutes of critical care time in the direct management of this patient. This is a life/limb threatening event. This includes time spent evaluating patient, direct bedside care, chart review, placing orders, interpretation of diagnostic studies, discussion with consultants, patient, and family members, as well as other required patient management activities. This time is exclusive of all separately billable procedures, and teaching time and separate from and in addition to any other critical care service time. Please note the above document was generated using voice recognition software. It may contain grammatical, syntax or spelling errors. Admission and Anticipated Discharge Date Admission Date: August 23, 2022 Subjective Patient seen and examined at bedside. No acute distress. Overnight patient b lood pressure went from the low side and she was put briefly on Levophed. At the time of examination patient temperature was 38.1, she was on propofol 35, fentanyl 50 Breathing with the vent RASS -2 Review of Systems Review of Systems: All systems reviewed & are unremarkable except as noted in Subjective and Unobtainable due to endotracheal tube Physical Exam Physical Exam: Constitutional: No acute distress HEENT: PERRLA, Positive ETT Respiratory system: Good air entry bilaterally, no wheeze, no rhonchi, no crackles CVS: S1-S2 positive, no murmurs or gallops, distant heart sounds Abdomen: Soft, nontender, distended, nontympanic, decreased bowel sounds, positive colostomy Extremities: +2 pulses bilaterally radialis/ dorsalis pedis, no cyanosis, no edema Neuro: Sedated, breathing with the vent, RASS -2 Psych: Unable to assess G/U: Positive Moss Skin: no rashes, warm and dry Lymphatic: no cervical or axillary lymphadenopathy Results & Data Results & Data ([facility]) Vital Signs (Past 12 Hours) Vital Signs Temp Pulse Pulse Resp BP BP Pulse Ox 08/24/22 06:37 38.0 C H 122 H 18 98 08/24/22 06:37 104/59 L 08/24/22 06:30 38.0 C H 128 H 18 98 08/24/22 06:30 98/58 L 08/24/22 06:20 37.9 C H 126 H 18 98 08/24/22 06:15 37.9 C H 126 H 18 98 08/24/22 06:15 107/65 08/24/22 06:10 37.9 C H 129 H 18 97 08/24/22 06:00 37.9 C H 120 H 18 99 08/24/22 06:00 110/66 08/24/22 05:50 37.8 C H 114 H 17 98 08/24/22 05:45 37.8 C H 113 H 17 97 08/24/22 05:45 120/68 08/24/22 05:40 37.8 C H 116 H 17 98 08/24/22 05:30 37.8 C H 116 H 16 99 08/24/22 05:30 98/60 L 08/24/22 05:20 37.7 C H 113 H 18 98 08/24/22 05:15 37.7 C H 113 H 16 99 08/24/22 05:15 116/66 08/24/22 05:10 37.7 C H 110 H 17 99 08/24/22 05:00 37.7 C H 109 H 17 98 08/24/22 05:00 113/72 08/24/22 04:50 37.7 C H 109 H 17 98 08/24/22 04:45 37.6 C H 111 H 17 98 08/24/22 04:45 121/61 08/24/22 04:40 37.6 C H 111 H 17 98 08/24/22 04:30 37.6 C H 108 H 17 98 08/24/22 04:30 108/62 08/24/22 04:20 37.6 C H 110 H 15 97 08/24/22 04:15 37.6 C H 108 H 17 98 08/24/22 04:15 123/59 L 08/24/22 04:10 37.6 C H 109 H 17 98 08/24/22 04:00 37.6 C H 111 H 17 96 08/24/22 04:00 119/65 08/24/22 03:50 37.6 C H 111 H 17 95 08/24/22 03:45 37.5 C 111 H 17 95 08/24/22 03:45 116/67 08/24/22 03:40 37.5 C 113 H 18 95 08/24/22 03:37 37.5 C 112 H 15 94 08/24/22 03:37 113/65 08/24/22 03:30 37.5 C 115 H 16 94 08/24/22 03:30 97/55 L 08/24/22 04:00 08/24/22 03:35 116 H 22 93 08/24/22 03:20 37.5 C 117 H 18 87 L 08/24/22 03:10 37.4 C 118 H 16 92 08/24/22 03:00 37.4 C 108 H 18 98 08/24/22 03:00 101/59 L 08/24/22 02:50 37.3 C 109 H 18 98 08/24/22 02:47 37.3 C 109 H 18 97 08/24/22 02:47 88/53 L 08/24/22 02:40 37.3 C 110 H 18 97 08/24/22 02:37 37.3 C 113 H 18 97 08/24/22 02:37 95/59 L 08/24/22 02:30 37.2 C 110 H 16 98 08/24/22 02:30 92/52 L 08/24/22 02:20 37.2 C 108 H 18 98 08/24/22 02:20 89/54 L 08/24/22 02:10 37.1 C 104 H 16 97 08/24/22 02:00 37.1 C 107 H 18 99 08/24/22 02:00 90/53 L 08/24/22 01:50 37.1 C 106 H 18 100 08/24/22 01:46 37.1 C 100 H 16 99 08/24/22 01:46 93/59 L 08/24/22 01:40 37.1 C 107 H 15 98 08/24/22 01:39 37.1 C 105 H 18 99 08/24/22 01:39 91/52 L 08/24/22 01:30 37.1 C 108 H 15 97 08/24/22 01:30 90/56 L 08/24/22 01:29 93/55 L 08/24/22 01:29 37.1 C 111 H 15 98 08/24/22 01:20 37.0 C 108 H 18 97 08/24/22 01:15 37.0 C 110 H 11 L 97 08/24/22 01:15 89/55 L 08/24/22 01:13 37.0 C 101 H 15 96 08/24/22 01:13 98/52 L 08/24/22 01:10 37.0 C 102 H 18 98 08/24/22 01:10 88/51 L 08/24/22 01:05 37.0 C 105 H 18 97 08/24/22 01:05 94/55 L 08/24/22 01:00 36.9 C 100 H 19 98 08/24/22 01:00 96/55 L 08/24/22 00:55 36.9 C 104 H 19 98 08/24/22 00:55 96/57 L 08/24/22 00:50 36.9 C 102 H 11 L 98 08/24/22 00:50 91/52 L 08/24/22 00:45 36.9 C 102 H 17 97 08/24/22 00:45 99/55 L 08/24/22 00:40 36.9 C 105 H 17 98 08/24/22 00:40 98/58 L 08/23/22 23:10 102 H 24 96 08/24/22 00:35 98/55 L 08/24/22 00:35 36.8 C 103 H 19 97 08/24/22 00:30 36.8 C 104 H 17 98 08/24/22 00:25 36.8 C 100 H 18 97 08/24/22 00:25 98/55 L 08/24/22 00:20 36.8 C 102 H 17 97 08/24/22 00:20 94/55 L 08/24/22 00:15 36.8 C 101 H 18 97 08/24/22 00:10 36.7 C 98 H 18 95 08/24/22 00:10 95/53 L 08/24/22 00:05 36.7 C 100 H 18 97 08/24/22 00:00 36.7 C 97 H 19 96 08/23/22 23:55 36.7 C 98 H 19 96 08/23/22 23:51 93/55 L 08/23/22 23:51 36.7 C 99 H 15 95 08/23/22 23:50 36.7 C 100 H 18 96 08/23/22 23:49 36.7 C 100 H 18 95 08/23/22 23:48 36.7 C 99 H 16 96 08/23/22 23:48 86/51 L 08/23/22 23:45 36.7 C 101 H 15 95 08/23/22 23:45 90/55 L 08/23/22 23:40 36.7 C 104 H 16 95 08/23/22 23:40 105/60 08/23/22 23:35 103/56 L 08/23/22 23:35 36.6 C 99 H 17 98 08/23/22 23:30 36.6 C 96 H 18 98 08/23/22 23:30 102/58 L 08/23/22 23:25 36.6 C 99 H 18 98 08/23/22 23:25 104/59 L 08/23/22 23:20 36.6 C 98 H 18 98 08/23/22 23:20 104/60 08/23/22 23:15 36.6 C 101 H 18 98 08/23/22 23:15 104/56 L 08/23/22 23:10 36.6 C 97 H 18 97 08/23/22 23:10 96/61 L 08/23/22 23:05 107/59 L 08/23/22 23:05 36.5 C 101 H 19 98 08/23/22 23:00 36.5 C 99 H 18 96 08/23/22 23:00 97/61 L 08/23/22 22:55 36.5 C 100 H 19 96 08/23/22 22:55 94/64 L 08/23/22 22:50 36.5 C 94 H 18 93 08/23/22 22:50 104/61 08/23/22 22:45 36.5 C 101 H 18 95 08/24/22 00:35 105 H 08/24/22 00:00 08/23/22 22:40 36.5 C 100 H 19 94 08/23/22 22:40 102/60 08/23/22 22:35 104/65 08/23/22 22:35 36.5 C 101 H 19 95 08/23/22 22:30 36.5 C 102 H 19 95 08/23/22 22:30 111/60 08/23/22 22:25 36.5 C 103 H 20 95 08/23/22 22:25 108/66 08/23/22 22:20 36.4 C L 101 H 20 95 08/23/22 22:20 111/66 08/23/22 22:15 36.4 C L 101 H 19 91 08/23/22 22:15 101/63 08/23/22 22:10 101 H 19 92 08/23/22 22:10 97/61 L 08/23/22 22:05 104 H 19 91 08/23/22 22:05 109/64 08/23/22 22:00 104 H 20 94 08/23/22 22:00 107/62 08/23/22 21:55 110/63 08/23/22 21:55 100 H 19 93 08/23/22 21:50 100 H 22 94 08/23/22 21:50 106/67 08/23/22 21:45 111/69 08/23/22 21:45 101 H 22 95 08/23/22 21:40 102 H 20 97 08/23/22 21:40 121/68 08/23/22 21:35 128/69 08/23/22 21:35 106 H 22 88 L 08/23/22 21:30 109 H 20 96 08/23/22 21:30 130/80 08/23/22 21:25 132/71 08/23/22 21:25 108 H 20 92 08/23/22 21:20 107 H 22 96 08/23/22 21:20 127/90 08/23/22 21:15 108 H 21 100 08/23/22 21:15 143/81 H 08/23/22 21:10 109 H 18 100 08/23/22 21:10 140/84 08/23/22 21:05 110 H 20 100 08/23/22 21:05 138/84 08/23/22 21:00 113 H 20 100 08/23/22 21:00 139/74 08/23/22 20:55 112 H 17 100 08/23/22 20:55 134/80 08/23/22 20:50 118 H 20 100 08/23/22 20:50 161/86 H 08/23/22 20:45 128 H 20 97 08/23/22 20:45 180/94 H 08/23/22 20:40 116 H 18 100 08/23/22 20:40 194/99 H 08/23/22 22:46 08/23/22 20:45 36.4 C L 100 H 26 H 125/70 93 08/23/22 20:45 36.4 C L 100 H 26 H 138/84 93 08/23/22 20:40 36.4 C L 126 H 26 H 180/94 H 08/23/22 20:35 36.4 C L 117 H 29 H 194/99 H 100 08/23/22 20:30 36.4 C L 111 H 29 H 191/99 H 100 08/23/22 20:40 128 H 20 97 O2 Del Method FiO2 08/24/22 06:37 08/24/22 06:37 08/24/22 06:30 08/24/22 06:30 08/24/22 06:20 08/24/22 06:15 08/24/22 06:15 08/24/22 06:10 08/24/22 06:00 08/24/22 06:00 08/24/22 05:50 08/24/22 05:45 08/24/22 05:45 08/24/22 05:40 08/24/22 05:30 08/24/22 05:30 08/24/22 05:20 08/24/22 05:15 08/24/22 05:15 08/24/22 05:10 08/24/22 05:00 08/24/22 05:00 08/24/22 04:50 08/24/22 04:45 08/24/22 04:45 08/24/22 04:40 08/24/22 04:30 08/24/22 04:30 08/24/22 04:20 08/24/22 04:15 08/24/22 04:15 08/24/22 04:10 08/24/22 04:00 08/24/22 04:00 08/24/22 03:50 08/24/22 03:45 08/24/22 03:45 08/24/22 03:40 08/24/22 03:37 08/24/22 03:37 08/24/22 03:30 08/24/22 03:30 08/24/22 04:00 50 08/24/22 03:35 50 08/24/22 03:20 08/24/22 03:10 08/24/22 03:00 08/24/22 03:00 08/24/22 02:50 08/24/22 02:47 08/24/22 02:47 08/24/22 02:40 08/24/22 02:37 08/24/22 02:37 08/24/22 02:30 08/24/22 02:30 08/24/22 02:20 08/24/22 02:20 08/24/22 02:10 08/24/22 02:00 08/24/22 02:00 08/24/22 01:50 08/24/22 01:46 08/24/22 01:46 08/24/22 01:40 08/24/22 01:39 08/24/22 01:39 08/24/22 01:30 08/24/22 01:30 08/24/22 01:29 08/24/22 01:29 08/24/22 01:20 08/24/22 01:15 08/24/22 01:15 08/24/22 01:13 08/24/22 01:13 08/24/22 01:10 08/24/22 01:10 08/24/22 01:05 08/24/22 01:05 08/24/22 01:00 08/24/22 01:00 08/24/22 00:55 08/24/22 00:55 08/24/22 00:50 08/24/22 00:50 08/24/22 00:45 08/24/22 00:45 08/24/22 00:40 08/24/22 00:40 08/23/22 23:10 40 08/24/22 00:35 08/24/22 00:35 08/24/22 00:30 08/24/22 00:25 08/24/22 00:25 08/24/22 00:20 08/24/22 00:20 08/24/22 00:15 08/24/22 00:10 08/24/22 00:10 08/24/22 00:05 08/24/22 00:00 08/23/22 23:55 08/23/22 23:51 08/23/22 23:51 08/23/22 23:50 08/23/22 23:49 08/23/22 23:48 08/23/22 23:48 08/23/22 23:45 08/23/22 23:45 08/23/22 23:40 08/23/22 23:40 08/23/22 23:35 08/23/22 23:35 08/23/22 23:30 08/23/22 23:30 08/23/22 23:25 08/23/22 23:25 08/23/22 23:20 08/23/22 23:20 08/23/22 23:15 08/23/22 23:15 08/23/22 23:10 08/23/22 23:10 08/23/22 23:05 08/23/22 23:05 08/23/22 23:00 08/23/22 23:00 08/23/22 22:55 08/23/22 22:55 08/23/22 22:50 08/23/22 22:50 08/23/22 22:45 08/24/22 00:35 08/24/22 00:00 40 08/23/22 22:40 08/23/22 22:40 08/23/22 22:35 08/23/22 22:35 08/23/22 22:30 08/23/22 22:30 08/23/22 22:25 08/23/22 22:25 08/23/22 22:20 08/23/22 22:20 08/23/22 22:15 08/23/22 22:15 08/23/22 22:10 08/23/22 22:10 08/23/22 22:05 08/23/22 22:05 08/23/22 22:00 08/23/22 22:00 08/23/22 21:55 08/23/22 21:55 08/23/22 21:50 08/23/22 21:50 08/23/22 21:45 08/23/22 21:45 08/23/22 21:40 08/23/22 21:40 08/23/22 21:35 08/23/22 21:35 08/23/22 21:30 08/23/22 21:30 08/23/22 21:25 08/23/22 21:25 08/23/22 21:20 08/23/22 21:20 08/23/22 21:15 08/23/22 21:15 08/23/22 21:10 08/23/22 21:10 08/23/22 21:05 08/23/22 21:05 08/23/22 21:00 08/23/22 21:00 08/23/22 20:55 08/23/22 20:55 08/23/22 20:50 08/23/22 20:50 08/23/22 20:45 08/23/22 20:45 08/23/22 20:40 08/23/22 20:40 08/23/22 22:46 Mechanical Vent 60 08/23/22 20:45 Mechanical Vent 80 08/23/22 20:45 Mechanical Vent 80 08/23/22 20:40 Mechanical Vent 80 08/23/22 20:35 Mechanical Vent 80 08/23/22 20:30 Mechanical Vent 80 08/23/22 20:40 60 Laboratory Results 08/24/22 05:27 08/24/22 05:26 Coding Level of Care Code Critical Care 1st 30-74 mins Diagnoses Bowel obstruction K56.609 Sigmoid volvulus K56.2 Endotracheally intubated Z97.8 Dementia F03.90 Dementia behavioral disturbance: without behavioral disturbance Dementia type: unspecified type Hyperlipidemia E78.5 Benign essential hypertension I10 Time Spent (min) 38 (1) Dementia Dementia behavioral disturbance: without behavioral disturbance Dementia type: unspecified type Qualified Code(s): F03.90 - Unspecified dementia without behavioral disturbance
[2022-08-24] MEDS: NORMOSOL-R 1,000 ML IV SCH ×2 (07:55→20:51)
[2022-08-24] MEDS: ACETAMINOPHEN 1,000 MG/100 ML VIAL IV PRN ×2 (07:57→17:31)
[2022-08-24] MEDS: LACTATED RINGER'S 1,000 ML IV SCH ×2 (07:58→18:28)
[2022-08-24 08:10] LABS: iSTAT Allen Test Pass; iSTAT Art Bld Gas pCO2 Correct 41 mmHg (35-46); iSTAT Art Bld Gas pH Corrected 7.404 (7.35-7.45); iSTAT Arterial Blood Gas HCO3 25 meg/L (19-24); iSTAT Arterial Blood Gas pCO2 39 mmHg (35-46); iSTAT Arterial Blood Gas pH 7.42 (7.35-7.45); iSTAT Arterial Blood Gas pO2 73 mmHg (80-95); iSTAT Arterial Blood Gas pO2 C 78; iSTAT Carbon Dioxide 26 mmol/L (24-31); iSTAT FiO2 50 %; iSTAT Hematocrit 42 % (37-47); iSTAT Hemoglobin 14.3 g/dl (12.0-16.0); iSTAT Potassium 4.5 mmol/L (3.3-5.0); iSTAT Site R Radial; iSTAT Sodium 133 mmol/L (135-144)
--- NOTE | 2022-08-24 08:47 | Surgery Progress Note ---
Date of Service August 24, 2022 Assessment & Plan (1) Sigmoid volvulus: Plan: pod 1 now with fever. ? etiology. ok from our standpoint to extubate nothing to add surgically at this time Dr. Arrieta covering for weekend. Admission and Anticipated Discharge Date Admission Date: August 23, 2022 Subjective pt seen. sedated on vent. Physical Exam Physical Exam: sedated on vent Gastrointestinal (Abdomen): soft. much less distended. stoma viable. no output yet Results & Data ([facility]) Vital Signs (Past 12 Hours) Vital Signs Temp Pulse Resp BP Pulse Ox O2 Del Method FiO2 08/24/22 08:00 50 08/24/22 07:50 123 H 19 94 50 08/24/22 06:37 38.0 C H 122 H 18 98 08/24/22 06:37 104/59 L 08/24/22 06:30 38.0 C H 128 H 18 98 08/24/22 06:30 98/58 L 08/24/22 06:20 37.9 C H 126 H 18 98 08/24/22 06:15 37.9 C H 126 H 18 98 08/24/22 06:15 107/65 08/24/22 06:10 37.9 C H 129 H 18 97 08/24/22 06:00 37.9 C H 120 H 18 99 08/24/22 06:00 110/66 08/24/22 05:50 37.8 C H 114 H 17 98 08/24/22 05:45 37.8 C H 113 H 17 97 08/24/22 05:45 120/68 08/24/22 05:40 37.8 C H 116 H 17 98 08/24/22 05:30 37.8 C H 116 H 16 99 08/24/22 05:30 98/60 L 08/24/22 05:20 37.7 C H 113 H 18 98 08/24/22 05:15 37.7 C H 113 H 16 99 08/24/22 05:15 116/66 08/24/22 05:10 37.7 C H 110 H 17 99 08/24/22 05:00 37.7 C H 109 H 17 98 08/24/22 05:00 113/72 08/24/22 04:50 37.7 C H 109 H 17 98 08/24/22 04:45 37.6 C H 111 H 17 98 08/24/22 04:45 121/61 08/24/22 04:40 37.6 C H 111 H 17 98 08/24/22 04:30 37.6 C H 108 H 17 98 08/24/22 04:30 108/62 08/24/22 04:20 37.6 C H 110 H 15 97 08/24/22 04:15 37.6 C H 108 H 17 98 08/24/22 04:15 123/59 L 08/24/22 04:10 37.6 C H 109 H 17 98 08/24/22 04:00 37.6 C H 111 H 17 96 08/24/22 04:00 119/65 08/24/22 03:50 37.6 C H 111 H 17 95 08/24/22 03:45 37.5 C 111 H 17 95 08/24/22 03:45 116/67 08/24/22 03:40 37.5 C 113 H 18 95 08/24/22 03:37 37.5 C 112 H 15 94 08/24/22 03:37 113/65 08/24/22 03:30 37.5 C 115 H 16 94 08/24/22 03:30 97/55 L 08/24/22 04:00 50 08/24/22 03:35 116 H 22 93 50 08/24/22 03:20 37.5 C 117 H 18 87 L 08/24/22 03:10 37.4 C 118 H 16 92 08/24/22 03:00 37.4 C 108 H 18 98 08/24/22 03:00 101/59 L 08/24/22 02:50 37.3 C 109 H 18 98 08/24/22 02:47 37.3 C 109 H 18 97 08/24/22 02:47 88/53 L 08/24/22 02:40 37.3 C 110 H 18 97 08/24/22 02:37 37.3 C 113 H 18 97 08/24/22 02:37 95/59 L 08/24/22 02:30 37.2 C 110 H 16 98 08/24/22 02:30 92/52 L 08/24/22 02:20 37.2 C 108 H 18 98 08/24/22 02:20 89/54 L 08/24/22 02:10 37.1 C 104 H 16 97 08/24/22 02:00 37.1 C 107 H 18 99 08/24/22 02:00 90/53 L 08/24/22 01:50 37.1 C 106 H 18 100 08/24/22 01:46 37.1 C 100 H 16 99 08/24/22 01:46 93/59 L 08/24/22 01:40 37.1 C 107 H 15 98 08/24/22 01:39 37.1 C 105 H 18 99 08/24/22 01:39 91/52 L 08/24/22 01:30 37.1 C 108 H 15 97 08/24/22 01:30 90/56 L 08/24/22 01:29 93/55 L 08/24/22 01:29 37.1 C 111 H 15 98 08/24/22 01:20 37.0 C 108 H 18 97 08/24/22 01:15 37.0 C 110 H 11 L 97 08/24/22 01:15 89/55 L 08/24/22 01:13 37.0 C 101 H 15 96 08/24/22 01:13 98/52 L 08/24/22 01:10 37.0 C 102 H 18 98 08/24/22 01:10 88/51 L 08/24/22 01:05 37.0 C 105 H 18 97 08/24/22 01:05 94/55 L 08/24/22 01:00 36.9 C 100 H 19 98 08/24/22 01:00 96/55 L 08/24/22 00:55 36.9 C 104 H 19 98 08/24/22 00:55 96/57 L 08/24/22 00:50 36.9 C 102 H 11 L 98 08/24/22 00:50 91/52 L 08/24/22 00:45 36.9 C 102 H 17 97 08/24/22 00:45 99/55 L 08/24/22 00:40 36.9 C 105 H 17 98 08/24/22 00:40 98/58 L 08/23/22 23:10 102 H 24 96 40 08/24/22 00:35 98/55 L 08/24/22 00:35 36.8 C 103 H 19 97 08/24/22 00:30 36.8 C 104 H 17 98 08/24/22 00:25 36.8 C 100 H 18 97 08/24/22 00:25 98/55 L 08/24/22 00:20 36.8 C 102 H 17 97 08/24/22 00:20 94/55 L 08/24/22 00:15 36.8 C 101 H 18 97 08/24/22 00:10 36.7 C 98 H 18 95 08/24/22 00:10 95/53 L 08/24/22 00:05 36.7 C 100 H 18 97 08/24/22 00:00 36.7 C 97 H 19 96 08/23/22 23:55 36.7 C 98 H 19 96 08/23/22 23:51 93/55 L 08/23/22 23:51 36.7 C 99 H 15 95 08/23/22 23:50 36.7 C 100 H 18 96 08/23/22 23:49 36.7 C 100 H 18 95 08/23/22 23:48 36.7 C 99 H 16 96 08/23/22 23:48 86/51 L 08/23/22 23:45 36.7 C 101 H 15 95 08/23/22 23:45 90/55 L 08/23/22 23:40 36.7 C 104 H 16 95 08/23/22 23:40 105/60 08/23/22 23:35 103/56 L 08/23/22 23:35 36.6 C 99 H 17 98 08/23/22 23:30 36.6 C 96 H 18 98 08/23/22 23:30 102/58 L 08/23/22 23:25 36.6 C 99 H 18 98 08/23/22 23:25 104/59 L 08/23/22 23:20 36.6 C 98 H 18 98 08/23/22 23:20 104/60 08/23/22 23:15 36.6 C 101 H 18 98 08/23/22 23:15 104/56 L 08/23/22 23:10 36.6 C 97 H 18 97 08/23/22 23:10 96/61 L 08/23/22 23:05 107/59 L 08/23/22 23:05 36.5 C 101 H 19 98 08/23/22 23:00 36.5 C 99 H 18 96 08/23/22 23:00 97/61 L 08/23/22 22:55 36.5 C 100 H 19 96 08/23/22 22:55 94/64 L 08/23/22 22:50 36.5 C 94 H 18 93 08/23/22 22:50 104/61 08/23/22 22:45 36.5 C 101 H 18 95 08/24/22 00:35 105 H 08/24/22 00:00 40 08/23/22 22:40 36.5 C 100 H 19 94 08/23/22 22:40 102/60 08/23/22 22:35 104/65 08/23/22 22:35 36.5 C 101 H 19 95 08/23/22 22:30 36.5 C 102 H 19 95 08/23/22 22:30 111/60 08/23/22 22:25 36.5 C 103 H 20 95 08/23/22 22:25 108/66 08/23/22 22:20 36.4 C L 101 H 20 95 08/23/22 22:20 111/66 08/23/22 22:15 36.4 C L 101 H 19 91 08/23/22 22:15 101/63 08/23/22 22:10 101 H 19 92 08/23/22 22:10 97/61 L 08/23/22 22:05 104 H 19 91 08/23/22 22:05 109/64 08/23/22 22:00 104 H 20 94 08/23/22 22:00 107/62 08/23/22 21:55 110/63 08/23/22 21:55 100 H 19 93 08/23/22 21:50 100 H 22 94 08/23/22 21:50 106/67 08/23/22 21:45 111/69 08/23/22 21:45 101 H 22 95 08/23/22 21:40 102 H 20 97 08/23/22 21:40 121/68 08/23/22 21:35 128/69 08/23/22 21:35 106 H 22 88 L 08/23/22 21:30 109 H 20 96 08/23/22 21:30 130/80 08/23/22 21:25 132/71 12/22/22 21:25 108 H 20 92 08/23/22 21:20 107 H 22 96 08/23/22 21:20 127/90 08/23/22 21:15 108 H 21 100 08/23/22 21:15 143/81 H 08/23/22 21:10 109 H 18 100 08/23/22 21:10 140/84 08/23/22 21:05 110 H 20 100 08/23/22 21:05 138/84 08/23/22 21:00 113 H 20 100 08/23/22 21:00 139/74 08/23/22 20:55 112 H 17 100 08/23/22 20:55 134/80 08/23/22 20:50 118 H 20 100 08/23/22 20:50 161/86 H 08/23/22 22:46 Mechanical Vent 60 PG Care Time/CCT Total # of Minutes Spent Total Time Spent with Patient: Total time spent is greater than 50% in coordination of care (as documented) at patient's floor/unit and/or counseling patient: Coding Level of Care Code None Diagnoses Sigmoid volvulus K56.2
--- NOTE | 2022-08-24 08:49 | XRay Report ---
XR chest 1V portable HISTORY: Intubation. Respiratory failure. COMPARISON: Chest 08/23/2022. FINDINGS: A nasogastric tube terminates below the diaphragm. The tip is not included on this study. T here are midline skin melissa noted within the abdomen. Mildly dilated gas-filled loops of bowel are seen within the upper abdomen. Right subdiaphragmatic gas is likely due to the recent postoperative c hange. The endotracheal tube terminates 2.5 cm from the brianda. Mild dependent changes seen within th e lung bases. No pneumothorax. No pleural effusions. The heart is normal in size. IMPRESSION: 1. Satisfactory support line placement. 2. No acute process within the chest. 3. Interval postoperative changes within the abdomen with a small amount of pneumoperitoneum. This is likely due to the recent postoperative change. Follow-up recommended to ensure resolution. ACT 112: Negative or not required by law. Electronically signed by: Edwin Diamond M.D. 08/24/2022 8:46 AM
[2022-08-24] MEDS ORDERED: ADENOSINE IV SOLN 3 MG/ML 2 ML VIAL IV ONE (11:31)
[2022-08-24] MEDS ORDERED: METOPROLOL TARTRATE 1 MG/ML VIAL IV ONE (11:31)
[2022-08-24] MEDS: PANTOprazole 40 MG in SYRINGE 0 ML IV SCH (11:46)
[2022-08-24 15:20] LABS: BUN Creatinine Ratio 18.9 (10-20); Calcium 8.6 mg/dl (8.5-10.1); Creatinine Clr Calc Pharmacy 35.8 ml/min; Est GFR (Non-African American) 60.4 ml/min; Potassium 4.9 mmol/L (3.5-5.1)
[2022-08-24] MEDS ORDERED: METOPROLOL TARTRATE 1 MG/ML VIAL IV STA (17:27)
[2022-08-24] MEDS ORDERED: AMIODARONE 360MG / 200ML D5W IV ONE (18:33)
[2022-08-24] MEDS ORDERED: AMIODARONE 150MG / 100ML D5W IV ONE (18:33)
[2022-08-24] MEDS ORDERED: Nursing to Pharmacy Communication SCH (18:45)
[2022-08-25] MEDS: AMIODARONE / D5W 360 MG/200 ML BAG IV SCH ×2 (00:03→10:34)
[2022-08-25] MEDS: NOREPINEPHRINE/D5W 4 MG/250 ML PLCT IV SCH (01:53)
[2022-08-25] MEDS: ACETAMINOPHEN 1,000 MG/100 ML VIAL IV PRN (03:36)
[2022-08-25 05:04] LABS: Basophils # (auto) 0.03 K/uL (0-0.2); Basophils % (auto) 0.2 %; Eosinophils # (auto) 0.03 K/uL (0-0.50); Eosinophils % (auto) 0.2 %; Hematocrit (blood only) 37.9 % (34.1-44.9); Hemoglobin 12.3 g/dl (12.0-16.0); Immature Granulocytes # (auto) 0.13 K/uL (0.00-0.02); Immature Granulocytes % (auto) 0.9 %; Lymphocytes # (auto) 0.65 K/uL (1.2-3.4); Lymphocytes % (auto) 4.5 %; Mean Corpuscular Hemoglobin 28.6 pg (25.0-34.0); Mean Corpuscular Hgb Conc 32.5 g/dL (32.0-36.0); Mean Corpuscular Volume 88.1 fL (80.0-100.0); Mean Platelet Volume 10.5 fL (9.4-12.3); Monocytes # (auto) 0.61 K/uL (0.24-0.82); Monocytes % (auto) 4.2 %; Neutrophils # (auto) 13.12 K/uL (1.4-6.5); Platelet Count 194 K/uL (130-400); RDW Coefficient of Variation 14.4 % (11.5-14.5); RDW Standard Deviation 46.5 fL (36.4-46.3); White Blood Count 14.57 K/ul (4.8-10.8)
[2022-08-25 05:41] LABS: BUN Creatinine Ratio 21.4 (10-20); Est GFR (African American) 94.8 ml/min; Est GFR (Non-African American) 81.8 ml/min; Potassium 3.7 mmol/L (3.5-5.1)
--- NOTE | 2022-08-25 06:30 | Electrocardiogram Report ---
Test Reason : Blood Pressure : / mmHG Vent. Rate : 126 BPM Atrial Rate : 126 BPM P-R Int : 144 ms QRS Dur : 070 ms QT Int : 292 ms P-R-T Axes : 071 044 061 degrees QTc Int : 422 ms Poor data quality, interpretation may be adversely affected Sinus tachycardia Otherwise normal ECG When compared with ECG of 11-DEC-2020 15:01, Vent. rate has increased BY 49 BPM Confirmed by Garret Lee ([id number]) on 08/25/2022 6:29:50 AM Referred By: REFERRED SELF Confirmed By:Garret Lee
--- NOTE | 2022-08-25 06:42 | Electrocardiogram Report ---
Test Reason : Blood Pressure : / mmHG Vent. Rate : 111 BPM Atrial Rate : 111 BPM P-R Int : 166 ms QRS Dur : 082 ms QT Int : 312 ms P-R-T Axes : 081 064 051 degrees QTc Int : 424 ms Sinus tachycardia Otherwise normal ECG When compared with ECG of 23-AUG-2022 15:39, No significant change was found Confirmed by Garret Lee ([id number]) on 08/25/2022 6:42:20 AM Referred By: REFERRED SELF Confirmed By:Garret Lee
--- NOTE | 2022-08-25 07:08 | Electrocardiogram Report ---
Test Reason : Blood Pressure : / mmHG Vent. Rate : 148 BPM Atrial Rate : 148 BPM P-R Int : 150 ms QRS Dur : 070 ms QT Int : 300 ms P-R-T Axes : 056 058 063 degrees QTc Int : 471 ms Poor data quality, interpretation may be adversely affected Sinus tachycardia Nonspecific T wave abnormality Abnormal ECG When compared with ECG of 23-AUG-2022 21:04, Nonspecific T wave abnormality is now present in Anterior leads Confirmed by Garret Lee ([id number]) on 08/25/2022 7:08:42 AM Referred By: REFERRED SELF Confirmed By:Garret Lee
[2022-08-25] MEDS ORDERED: SODIUM PHOSPHATE 3 MMOL/1 ML INFUSION IV STA (07:25)
[2022-08-25] MEDS: ICU ELECTROLYTE REPLACEMENT PROTOCOL SCH ×2 (07:28→18:50)
[2022-08-25] MEDS ORDERED: SODIUM PHOSPHATE 15 MMOL in DEXTROSE 5% 250 ML IV ONE (07:30)
[2022-08-25] MEDS: LACTATED RINGER'S 1,000 ML IV SCH ×2 (08:01→20:15)
[2022-08-25] MEDS: POTASSIUM CHLORIDE / WTR 10 MEQ/100 ML PLCT IV SCH ×4 (08:01→14:09)
[2022-08-25] MEDS: MAGNESIUM SULFATE / D5W 1 GM/100 ML BAG IV SCH ×2 (08:01→10:31)
[2022-08-25] MEDS: cefOXitin 2,000 MG in DEXTROSE 5% 50 ML IV SCH ×2 (08:05→16:11)
--- NOTE | 2022-08-25 08:11 | Surgery Progress Note ---
Date of Service August 25, 2022 Assessment & Plan (1) Sigmoid volvulus: Plan: 08-25-2022 POD #2- Patient has been extubated. She has been afebrile for the last several hours. WBC is trending down. H & H stable. Large BM per rectum overnight. No output from stoma yet. Waiting for IV access to be established once again to resume IVF. Patient seen and examined with Dr. Arrieta. Ok from Gen Surg standpoint to transfer out of ICU. 08-24-2022 pod 1 now with fever. ? etiology. ok from our standpoint to extubate nothing to add surgically at this time Dr. Arrieta covering for weekend. Admission and Anticipated Discharge Date Admission Date: August 23, 2022 Supervising Physician Co-Signing Physician Notes As per Lauren Tubbs physician nurse assistant Subjective Patient is now extubated and resting comfortably in bed. She is easily awaken. She denies pain at the moment. Per nursing, patient had large BM per rectum overnight. Still no output from stoma. Per nursing, patient was a bit combative this AM and removed her own IV. She is more relaxed now. Physical Exam Gastrointestinal (Abdomen): Abdomen is soft on exam. Slightly distended. Stoma remains viable with no output yet. Results & Data ([facility]) Vital Signs (Past 12 Hours) Vital Signs Temp Pulse Pulse Resp BP BP Pulse Ox 08/25/22 07:10 112/58 L 08/25/22 05:40 37.2 C 88 18 94 08/25/22 05:30 37.2 C 84 18 94 08/25/22 05:30 105/46 L 08/25/22 05:20 37.2 C 79 14 96 08/25/22 05:15 109/51 L 08/25/22 05:15 37.1 C 86 22 96 08/25/22 05:10 37.2 C 85 17 96 08/25/22 05:00 37.2 C 82 15 94 08/25/22 05:00 104/55 L 08/25/22 04:50 37.2 C 105 H 27 H 93 08/25/22 04:45 105/54 L 08/25/22 04:45 37.2 C 106 H 24 98 08/25/22 04:40 37.3 C 85 14 95 08/25/22 04:30 37.3 C 80 14 95 08/25/22 04:30 106/46 L 08/25/22 04:20 37.3 C 87 15 95 08/25/22 04:15 110/53 L 08/25/22 04:15 37.3 C 90 15 97 08/25/22 04:10 37.3 C 90 27 H 93 08/25/22 04:00 37.3 C 81 19 97 08/25/22 04:00 107/55 L 08/25/22 03:50 37.3 C 81 22 95 08/25/22 03:45 113/54 L 08/25/22 03:45 37.3 C 87 25 H 97 08/25/22 03:40 37.3 C 103 H 27 H 98 08/25/22 03:30 37.4 C 88 28 H 97 08/25/22 03:30 121/78 08/25/22 03:20 37.5 C 93 H 48 H 94 08/25/22 03:15 115/86 08/25/22 03:15 37.5 C 102 H 35 H 93 08/25/22 03:10 37.5 C 103 H 25 H 91 08/25/22 03:00 37.5 C 98 H 45 H 98 08/25/22 03:00 113/77 08/25/22 02:50 37.5 C 81 22 98 08/25/22 02:45 117/58 L 08/25/22 02:45 37.5 C 81 25 H 97 08/25/22 02:40 37.5 C 83 27 H 98 08/25/22 02:30 37.5 C 91 H 25 H 96 08/25/22 02:30 122/55 L 08/25/22 02:20 37.5 C 93 H 27 H 97 08/25/22 02:15 117/52 L 08/25/22 02:15 37.5 C 88 23 95 08/25/22 02:10 37.5 C 86 25 H 95 08/25/22 02:00 37.6 C H 89 26 H 99 08/25/22 02:00 122/51 L 08/25/22 01:50 37.6 C H 86 23 98 08/25/22 01:45 37.6 C H 91 H 25 H 97 08/25/22 01:45 120/59 L 08/25/22 01:40 37.6 C H 84 16 97 08/25/22 01:30 37.6 C H 87 26 H 98 08/25/22 01:30 120/54 L 08/25/22 01:20 37.6 C H 84 18 96 08/25/22 01:15 109/58 L 08/25/22 01:15 37.5 C 86 18 98 08/25/22 01:10 37.5 C 83 17 98 08/25/22 01:00 37.5 C 86 18 96 08/25/22 01:00 122/52 L 08/25/22 00:50 37.5 C 83 22 97 08/25/22 00:45 113/55 L 08/25/22 00:45 37.5 C 83 19 99 08/25/22 03:55 37.3 C 86 97 08/25/22 02:00 84 98 08/25/22 00:40 37.5 C 84 23 100 08/25/22 00:30 37.5 C 112 H 21 96 08/25/22 00:30 123/59 L 08/25/22 00:20 37.5 C 77 23 97 08/25/22 00:15 103/53 L 08/25/22 00:15 37.5 C 84 20 97 08/25/22 00:10 37.5 C 82 14 97 08/25/22 00:00 37.5 C 81 17 99 08/25/22 00:00 106/55 L 08/24/22 23:50 37.4 C 83 24 98 08/24/22 23:45 102/50 L 08/24/22 23:45 37.4 C 77 22 98 08/24/22 23:40 37.4 C 83 24 99 08/25/22 00:00 80 08/24/22 23:30 37.4 C 84 25 H 97 08/24/22 23:30 124/52 L 08/24/22 23:20 37.4 C 105 H 34 H 95 08/24/22 23:15 132/65 08/24/22 23:15 37.4 C 111 H 30 H 95 08/24/22 23:10 37.4 C 92 H 37 H 98 08/24/22 23:00 37.3 C 81 20 99 08/24/22 23:00 142/68 H 08/24/22 22:50 37.3 C 80 28 H 100 08/24/22 22:45 113/52 L 08/24/22 22:45 37.3 C 79 31 H 100 08/24/22 22:40 37.4 C 76 30 H 100 08/24/22 22:30 37.4 C 79 29 H 100 08/24/22 22:30 107/58 L 08/24/22 22:20 37.5 C 84 32 H 99 08/24/22 22:15 106/53 L 08/24/22 22:15 37.5 C 90 31 H 99 08/24/22 22:11 37.5 C 80 32 H 99 08/24/22 22:00 37.5 C 83 22 98 08/24/22 22:00 108/49 L 08/24/22 21:50 37.5 C 91 H 22 97 08/24/22 21:45 37.5 C 84 20 98 08/24/22 21:45 110/52 L 08/24/22 21:40 37.5 C 88 15 97 08/24/22 21:30 37.5 C 93 H 24 96 08/24/22 21:30 114/56 L 08/24/22 21:20 37.4 C 80 22 97 08/24/22 21:15 37.4 C 89 20 99 08/24/22 21:15 115/49 L 08/24/22 21:10 37.4 C 93 H 21 97 08/24/22 21:00 37.4 C 102 H 27 H 96 08/24/22 21:00 106/46 L 08/24/22 20:50 37.4 C 94 H 28 H 96 08/24/22 20:45 37.5 C 96 H 30 H 96 08/24/22 20:45 95/52 L 08/24/22 20:40 37.5 C 88 27 H 96 08/24/22 20:30 37.5 C 103 H 24 97 08/24/22 20:30 102/54 L 08/24/22 20:20 37.5 C 97 H 25 H 97 08/24/22 20:15 37.5 C 103 H 25 H 99 08/24/22 20:15 111/55 L 08/24/22 20:10 37.5 C 103 H 29 H 98 O2 Del Method O2 Flow Rate 08/25/22 07:10 08/25/22 05:40 08/25/22 05:30 08/25/22 05:30 08/25/22 05:20 08/25/22 05:15 08/25/22 05:15 08/25/22 05:10 08/25/22 05:00 08/25/22 05:00 08/25/22 04:50 08/25/22 04:45 08/25/22 04:45 08/25/22 04:40 08/25/22 04:30 08/25/22 04:30 08/25/22 04:20 08/25/22 04:15 08/25/22 04:15 08/25/22 04:10 08/25/22 04:00 08/25/22 04:00 08/25/22 03:50 08/25/22 03:45 08/25/22 03:45 08/25/22 03:40 08/25/22 03:30 08/25/22 03:30 08/25/22 03:20 08/25/22 03:15 08/25/22 03:15 08/25/22 03:10 08/25/22 03:00 08/25/22 03:00 08/25/22 02:50 08/25/22 02:45 08/25/22 02:45 08/25/22 02:40 08/25/22 02:30 08/25/22 02:30 08/25/22 02:20 08/25/22 02:15 08/25/22 02:15 08/25/22 02:10 08/25/22 02:00 08/25/22 02:00 08/25/22 01:50 08/25/22 01:45 08/25/22 01:45 08/25/22 01:40 08/25/22 01:30 08/25/22 01:30 08/25/22 01:20 08/25/22 01:15 08/25/22 01:15 08/25/22 01:10 08/25/22 01:00 08/25/22 01:00 08/25/22 00:50 08/25/22 00:45 08/25/22 00:45 08/25/22 03:55 Nasal Cannula 2 08/25/22 02:00 Nasal Cannula 2 08/25/22 00:40 08/25/22 00:30 08/25/22 00:30 08/25/22 00:20 08/25/22 00:15 08/25/22 00:15 08/25/22 00:10 08/25/22 00:00 08/25/22 00:00 08/24/22 23:50 08/24/22 23:45 08/24/22 23:45 08/24/22 23:40 08/25/22 00:00 08/24/22 23:30 08/24/22 23:30 08/24/22 23:20 08/24/22 23:15 08/24/22 23:15 08/24/22 23:10 08/24/22 23:00 08/24/22 23:00 08/24/22 22:50 08/24/22 22:45 08/24/22 22:45 08/24/22 22:40 08/24/22 22:30 08/24/22 22:30 08/24/22 22:20 08/24/22 22:15 08/24/22 22:15 08/24/22 22:11 08/24/22 22:00 08/24/22 22:00 08/24/22 21:50 08/24/22 21:45 08/24/22 21:45 08/24/22 21:40 08/24/22 21:30 08/24/22 21:30 08/24/22 21:20 08/24/22 21:15 08/24/22 21:15 08/24/22 21:10 08/24/22 21:00 08/24/22 21:00 08/24/22 20:50 08/24/22 20:45 08/24/22 20:45 08/24/22 20:40 08/24/22 20:30 08/24/22 20:30 08/24/22 20:20 08/24/22 20:15 08/24/22 20:15 08/24/22 20:10 PG Care Time/CCT Total # of Minutes Spent Total Time Spent with Patient: Total time spent is greater than 50% in coordination of care (as documented) at patient's floor/unit and/or counseling patient: Coding Level of Care Code 36440 Subseq Hosp Care Lvl 2 Diagnoses Sigmoid volvulus K56.2
--- NOTE | 2022-08-25 08:24 | Critical Care Progress Note ---
Date of Service August 25, 2022 Assessment & Plan (1) Bowel obstruction: (2) Sigmoid volvulus: (3) Endotracheally intubated: (4) Dementia: (5) Hyperlipidemia: (6) Benign essential hypertension: Plan Reason Critically Ill: 82 YOF taken urgently to operating suite for severe s igmoid distention with high grade bowel obstruction and likely sigmoid volvus. Patient remained intubated following procedure and was transferred to ICU for follow on care. Continue with potassium and other electrolyte replacments, sedation and pain control. Neuro -Dementia, Depression - Patient with baseline dementia with record review shows a baseline of awareness to self and able to answer simple questions - High risk for ICU delirium - Continue Donepazil and Memantine when able to take PO - Continue Doxepin when able to take PO for her depression Cardiac -CAD history of, history of HTN, HLD, SVT -- SVT Could be secondary to surgery/sepsis Unfortunately unable to use beta-devin as the blood pressure is on the lower side Continue with amiodarone for the time being --S/p shock Multifactorial Sepsis plus sedation Has been off Levophed - unsure of her CAD history or previous evaluations- can institute BB if needed for rate control if needed - pain control as above, continue supportive care- ECG is without any ST elevations or ectopy - ASA when able to take PO Respiratory - Continue with O2 supplementation to keep oxygen saturation greater than 90% GI -GERD - PPI while NPO RENAL/LYTES - Monitor BUNs/creatinine Avoid nephrotoxic medications - Continue with Moss catheter ENDO - - ICU hyperglycemia protocol --History of hypothyroidism TSH within normal limit HEME -No acute needs ID - --New onset fever Could be postop versus sepsis Blood cultures have been drawn on cefoxitin which has good anaerobic coverage --Prophylaxis VTE: IPC GI: Pantoprazole Lines: Peripheral Diet: N.p.o. Plan: In/out: +1.8 L, urine output 741 Patient is positive for liters since coming to the hospital. I will go down on the rate to 50 mL/h of LR With him, magnesium as well as phosphorus being replaced There has been drop of hemoglobin. I will repeat H&H later today. Continue with amiodarone for the time being Patient hemodynamically stable to be downgraded. Will defer disposition to surgery team Please note the above document was generated using voice recognition software. It may contain grammatical, syntax or spelling errors.Any formal questions or concerns about the content, text or information contained within the body of this dictation should be directly addressed to the provider for clarification. Admission and Anticipated Discharge Date Admission Date: August 23, 2022 Subjective Patient seen and examined at bedside. No acute distress, no adverse events overnight. Patient was started on amiodarone drip but she was still going into the SVT overnight. Blood pressure at the time of examination was systolic in the 110s Was saturating well on 2 L. Answering few questions. Denied any headache, no nausea. Did complain of mild abdominal pain. Has been afebrile in the last 12 hours Review of Systems 2 Review of Systems: All systems reviewed & are unremarkable except as noted in Subjective Physical Exam Physical Exam: Constitutional: No acute distress, frail-appearing HEENT: PERRLA, EOMI Respiratory system: Good air entry bilaterally, no wheeze, no rhonchi, mild crackles bilateral lower lobes CVS: S1-S2 positive, no murmurs or gallops, distant heart sounds Abdomen: Soft, nontender, nondistended, decreased bowel sounds, positive colostomy Extremities: +2 pulses bilaterally radialis/ dorsalis pedis, no cyanosis, no edema Neuro: Alert oriented to self Psych: Normal mood and affect G/U: Positive Moss Skin: no rashes, warm and dry Lymphatic: no cervical or axillary lymphadenopathy Results & Data Results & Data ([facility]) Vital Signs (Past 12 Hours) Vital Signs Temp Pulse Pulse Resp BP BP Pulse Ox 08/25/22 07:10 112/58 L 08/25/22 05:40 37.2 C 88 18 94 08/25/22 05:30 37.2 C 84 18 94 08/25/22 05:30 105/46 L 08/25/22 05:20 37.2 C 79 14 96 08/25/22 05:15 109/51 L 08/25/22 05:15 37.1 C 86 22 96 08/25/22 05:10 37.2 C 85 17 96 08/25/22 05:00 37.2 C 82 15 94 08/25/22 05:00 104/55 L 08/25/22 04:50 37.2 C 105 H 27 H 93 08/25/22 04:45 105/54 L 08/25/22 04:45 37.2 C 106 H 24 98 08/25/22 04:40 37.3 C 85 14 95 08/25/22 04:30 37.3 C 80 14 95 08/25/22 04:30 106/46 L 08/25/22 04:20 37.3 C 87 15 95 08/25/22 04:15 110/53 L 08/25/22 04:15 37.3 C 90 15 97 08/25/22 04:10 37.3 C 90 27 H 93 08/25/22 04:00 37.3 C 81 19 97 08/25/22 04:00 107/55 L 08/25/22 03:50 37.3 C 81 22 95 08/25/22 03:45 113/54 L 08/25/22 03:45 37.3 C 87 25 H 97 08/25/22 03:40 37.3 C 103 H 27 H 98 08/25/22 03:30 37.4 C 88 28 H 97 08/25/22 03:30 121/78 08/25/22 03:20 37.5 C 93 H 48 H 94 08/25/22 03:15 115/86 08/25/22 03:15 37.5 C 102 H 35 H 93 08/25/22 03:10 37.5 C 103 H 25 H 91 08/25/22 03:00 37.5 C 98 H 45 H 98 08/25/22 03:00 113/77 08/25/22 02:50 37.5 C 81 22 98 08/25/22 02:45 117/58 L 08/25/22 02:45 37.5 C 81 25 H 97 08/25/22 02:40 37.5 C 83 27 H 98 08/25/22 02:30 37.5 C 91 H 25 H 96 08/25/22 02:30 122/55 L 08/25/22 02:20 37.5 C 93 H 27 H 97 08/25/22 02:15 117/52 L 08/25/22 02:15 37.5 C 88 23 95 08/25/22 02:10 37.5 C 86 25 H 95 08/25/22 02:00 37.6 C H 89 26 H 99 08/25/22 02:00 122/51 L 08/25/22 01:50 37.6 C H 86 23 98 08/25/22 01:45 37.6 C H 91 H 25 H 97 08/25/22 01:45 120/59 L 08/25/22 01:40 37.6 C H 84 16 97 08/25/22 01:30 37.6 C H 87 26 H 98 08/25/22 01:30 120/54 L 08/25/22 01:20 37.6 C H 84 18 96 08/25/22 01:15 109/58 L 08/25/22 01:15 37.5 C 86 18 98 08/25/22 01:10 37.5 C 83 17 98 08/25/22 01:00 37.5 C 86 18 96 08/25/22 01:00 122/52 L 08/25/22 00:50 37.5 C 83 22 97 08/25/22 00:45 113/55 L 08/25/22 00:45 37.5 C 83 19 99 08/25/22 03:55 37.3 C 86 97 08/25/22 02:00 84 98 08/25/22 00:40 37.5 C 84 23 100 08/25/22 00:30 37.5 C 112 H 21 96 08/25/22 00:30 123/59 L 08/25/22 00:20 37.5 C 77 23 97 08/25/22 00:15 103/53 L 08/25/22 00:15 37.5 C 84 20 97 08/25/22 00:10 37.5 C 82 14 97 08/25/22 00:00 37.5 C 81 17 99 08/25/22 00:00 106/55 L 08/24/22 23:50 37.4 C 83 24 98 08/24/22 23:45 102/50 L 08/24/22 23:45 37.4 C 77 22 98 08/24/22 23:40 37.4 C 83 24 99 08/25/22 00:00 80 08/24/22 23:30 37.4 C 84 25 H 97 08/24/22 23:30 124/52 L 08/24/22 23:20 37.4 C 105 H 34 H 95 08/24/22 23:15 132/65 08/24/22 23:15 37.4 C 111 H 30 H 95 12/23/22 23:10 37.4 C 92 H 37 H 98 08/24/22 23:00 37.3 C 81 20 99 08/24/22 23:00 142/68 H 08/24/22 22:50 37.3 C 80 28 H 100 08/24/22 22:45 113/52 L 08/24/22 22:45 37.3 C 79 31 H 100 08/24/22 22:40 37.4 C 76 30 H 100 08/24/22 22:30 37.4 C 79 29 H 100 08/24/22 22:30 107/58 L 08/24/22 22:20 37.5 C 84 32 H 99 08/24/22 22:15 106/53 L 08/24/22 22:15 37.5 C 90 31 H 99 08/24/22 22:11 37.5 C 80 32 H 99 08/24/22 22:00 37.5 C 83 22 98 08/24/22 22:00 108/49 L 08/24/22 21:50 37.5 C 91 H 22 97 08/24/22 21:45 37.5 C 84 20 98 08/24/22 21:45 110/52 L 08/24/22 21:40 37.5 C 88 15 97 08/24/22 21:30 37.5 C 93 H 24 96 08/24/22 21:30 114/56 L 08/24/22 21:20 37.4 C 80 22 97 08/24/22 21:15 37.4 C 89 20 99 08/24/22 21:15 115/49 L 08/24/22 21:10 37.4 C 93 H 21 97 08/24/22 21:00 37.4 C 102 H 27 H 96 08/24/22 21:00 106/46 L 08/24/22 20:50 37.4 C 94 H 28 H 96 08/24/22 20:45 37.5 C 96 H 30 H 96 08/24/22 20:45 95/52 L 08/24/22 20:40 37.5 C 88 27 H 96 08/24/22 20:30 37.5 C 103 H 24 97 08/24/22 20:30 102/54 L O2 Del Method O2 Flow Rate 08/25/22 07:10 08/25/22 05:40 08/25/22 05:30 08/25/22 05:30 08/25/22 05:20 08/25/22 05:15 08/25/22 05:15 08/25/22 05:10 08/25/22 05:00 08/25/22 05:00 08/25/22 04:50 08/25/22 04:45 08/25/22 04:45 08/25/22 04:40 08/25/22 04:30 08/25/22 04:30 08/25/22 04:20 08/25/22 04:15 08/25/22 04:15 08/25/22 04:10 08/25/22 04:00 08/25/22 04:00 08/25/22 03:50 08/25/22 03:45 08/25/22 03:45 08/25/22 03:40 08/25/22 03:30 08/25/22 03:30 08/25/22 03:20 08/25/22 03:15 08/25/22 03:15 08/25/22 03:10 08/25/22 03:00 08/25/22 03:00 08/25/22 02:50 08/25/22 02:45 08/25/22 02:45 08/25/22 02:40 08/25/22 02:30 08/25/22 02:30 08/25/22 02:20 08/25/22 02:15 08/25/22 02:15 08/25/22 02:10 08/25/22 02:00 08/25/22 02:00 08/25/22 01:50 08/25/22 01:45 08/25/22 01:45 08/25/22 01:40 08/25/22 01:30 08/25/22 01:30 08/25/22 01:20 08/25/22 01:15 08/25/22 01:15 08/25/22 01:10 08/25/22 01:00 08/25/22 01:00 08/25/22 00:50 08/25/22 00:45 08/25/22 00:45 08/25/22 03:55 Nasal Cannula 2 08/25/22 02:00 Nasal Cannula 2 08/25/22 00:40 08/25/22 00:30 08/25/22 00:30 08/25/22 00:20 08/25/22 00:15 08/25/22 00:15 08/25/22 00:10 08/25/22 00:00 08/25/22 00:00 08/24/22 23:50 08/24/22 23:45 08/24/22 23:45 08/24/22 23:40 08/25/22 00:00 08/24/22 23:30 08/24/22 23:30 08/24/22 23:20 08/24/22 23:15 08/24/22 23:15 08/24/22 23:10 08/24/22 23:00 08/24/22 23:00 08/24/22 22:50 08/24/22 22:45 08/24/22 22:45 08/24/22 22:40 08/24/22 22:30 08/24/22 22:30 08/24/22 22:20 08/24/22 22:15 08/24/22 22:15 08/24/22 22:11 08/24/22 22:00 08/24/22 22:00 08/24/22 21:50 08/24/22 21:45 08/24/22 21:45 08/24/22 21:40 08/24/22 21:30 08/24/22 21:30 08/24/22 21:20 08/24/22 21:15 08/24/22 21:15 08/24/22 21:10 08/24/22 21:00 08/24/22 21:00 08/24/22 20:50 08/24/22 20:45 08/24/22 20:45 08/24/22 20:40 08/24/22 20:30 08/24/22 20:30 Laboratory Results 08/25/22 04:40 08/25/22 04:40 Coding Level of Care Code 11910 Subs Hosp Care Lv 3 Diagnoses Bowel obstruction K56.609 Sigmoid volvulus K56.2 Endotracheally intubated Z97.8 Dementia F03.90 Dementia behavioral disturbance: without behavioral disturbance Dementia type: unspecified type Hyperlipidemia E78.5 Benign essential hypertension I10 (1) Dementia Dementia behavioral disturbance: without behavioral disturbance Dementia type: unspecified type Qualified Code(s): F03.90 - Unspecified dementia without behavioral disturbance
[2022-08-25] MEDS: PANTOprazole 40 MG in SYRINGE 0 ML IV SCH (11:44)
[2022-08-25 12:02] LABS: Hematocrit (blood only) 34.2 % (34.1-44.9); Hemoglobin 11.3 g/dl (12.0-16.0)
--- NOTE | 2022-08-25 15:48 | Hospitalist Consultation ---
Date of Consultation August 25, 2022 Assessment & Plan (1) Sigmoid volvulus: Patient presented on August 23 with a sigmoid volvulus taken to surgery and ending with a sigmoid colon resection, end colostomy, repair of an umbilical hernia Patient downgraded from ICU status on the necessitating a hospitalist consultation for medical management. Nursing reports a scant amount of blood per rectum and no ostomy output Hemoglobin is 11 in the morning pending hemoglobin recheck this evening Surgery the patient on prophylactic cefoxitin Patient has acute blood loss anemia but no need of transfusion at this point time Mildly low hyponatremia hypophosphatemia will be repleted (2) Dementia: Patient is prehospital did take memantine and donepezil is currently on hold in her postoperative state pt has hospital delirium, will use some prn iv Haldol as pts delirium may preve nt po Zyprexa (3) Hypothyroidism: Continues on Synthroid when taking p.o. if prolonged may consider IV dose 50% of oral dose TSH checked in May was normal range Plan Patient placed on a PPI with her intubation for reduction of VAP DVT PROPHYLAXIS - SCDS, Hold on chemoprophylaxis at this time-especially with hematochezia Diet: NPO CODE Status: DNR/DNI History of Present Illness Attending Physician: Lino Larson DO History of Present Illness 82-year-old female presenting to August 23 with what appeared to be a high- grade bowel obstruction found to be a sigmoid volvulus was taken to the operating room for surgical reduction and election to do a partial colectomy and colostomy. Patient was downgraded from ICU status and medical consultation was obtained to help manage the patient in the perioperative period. Patient has very few medical problems presurgically she is hypothyroid on Synthroid she is on donepezil and amantadine for dementia and she is on doxepin 6 mg at bedtime for insomnia. She is diet controlled hypertension and dyslipidemia Allergies Allergy/AdvReac Type Severity Reaction Status Date / Time No Known Allergies Allergy Unverified 08/23/22 18:06 Home Medications Medication Instructions Recorded Confirmed Type acetaminophen 325 mg tablet 650 mg PO DAILY #90 tabs 04/03/19 08/23/22 Rx aspirin 81 mg chewable tablet 81 mg PO DAILY #90 tabs 04/03/19 08/23/22 Rx calcium carbonate 600 mg-vitamin 1 cap PO BID #180 caps 04/03/19 08/23/22 Rx D3 10 mcg (400 unit) capsule cetirizine 10 mg tablet 10 mg PO DAILY #90 tabs 04/03/19 08/23/22 Rx ergocalciferol (vitamin D2) 1,250 50,000 units PO WK #12 caps 04/22/19 08/23/22 Rx mcg (50,000 unit) capsule donepezil 10 mg tablet 10 mg PO DAILY 12/11/20 08/23/22 History acetaminophen 325 mg tablet 650 mg PO Q6 PRN Fever Or Pain 08/23/22 08/23/22 His tory doxepin 6 mg tablet 6 mg PO HS 08/23/22 08/23/22 History levothyroxine 75 mcg tablet 75 mcg PO DAILY 08/23/22 08/23/22 History melatonin 3 mg tablet 3 mg PO HS 08/23/22 08/23/22 History memantine 10 mg tablet 10 mg PO Q12 08/23/22 08/23/22 History dltfcupuoidi-zovitpmw-mfskcz 1 tab PO DAILY 08/23/22 08/23/22 History tablet (Multivitamin 50 Plus tablet) nitroglycerin 0.4 mg sublingual 0.4 mg sublingual Q5M PRN Chest 08/23/22 08/23/22 History tablet Pain potassium chloride 20 mEq 40 meq PO BID 08/23/22 08/23/22 History tablet,extended release(part/cryst) protein supplement 1 ea PO DAILY 08/23/22 08/23/22 History Patient History Medical History (Updated 08/25/22 @ 15:49 by Ranjith Stephen MD) Anxiety Arteriosclerosis of coronary artery Benign essential hypertension Dementia Depression History of esophageal reflux Hyperlipidemia Insomnia Osteoporosis Vitamin D deficiency Social History (Updated 08/23/22 @ 21:25 by AUGUSTINE Newell) Smoking Status: Former smoker Hx Alcohol Use: No Preferred Language: Panamanian Communication Ability: Unable marital status: / Current Living Situation: Other Current Living Situation Comment: Assisted Living - [facility] current occupational status: retired Feels Safe at Home: Yes Childhood Exposure to Second-Hand Smoke: No Physical Activity Frequency: Daily Assistive Devices: None Review of Systems Review of Systems: pts is confused, answers yes to everything, does not appear to be in discomfort Physical Exam Physical Exam: The patient appeared thin and chronically ill Vital signs as documented. Head exam is normocephalic atraumatic Neck is without JVD, thyromegaly, or carotid bruits. Lungs are clear to auscultation, no focal loss of breath sounds Cardiac exam, Rhythm is regular.. No murmurs, rubs or gallops. Abdominal exam reveals absent bowel sounds, soft ostomy in left abdomen, no gas in bag, some slight serosang fluid Extremities are nonedematous and both pedal pulses are present Neurologic exam is alert and oriented x1, no focal loss of strength or sensatio n, has soft limb restraints Skin is without bruises or rashes Psychologically is with dementia and agitation Results & Data Results & Data ([facility]) Vital Signs (Past 12 Hours) Vital Signs Temp Pulse Pulse Resp BP BP Pulse Ox 08/25/22 14:45 100/44 L 08/25/22 14:45 99.5 F 84 24 97 08/25/22 14:30 116/50 L 08/25/22 14:30 99.5 F 82 23 99 08/25/22 14:15 104/58 L 08/25/22 14:15 99.5 F 89 22 99 08/25/22 14:00 99.3 F 84 17 98 08/25/22 14:00 111/58 L 08/25/22 13:45 118/52 L 08/25/22 13:45 99.3 F 82 18 96 08/25/22 13:30 109/58 L 08/25/22 13:30 99.1 F 83 22 97 08/25/22 13:15 111/53 L 08/25/22 13:15 99.1 F 80 23 96 08/25/22 13:00 99.1 F 83 24 100 08/25/22 13:00 102/49 L 08/25/22 12:45 108/47 L 08/25/22 12:45 99.1 F 85 25 H 98 08/25/22 12:30 106/51 L 08/25/22 12:30 99.1 F 80 24 95 08/25/22 08:00 08/25/22 12:15 108/47 L 08/25/22 12:15 99.0 F 81 23 95 08/25/22 12:00 99.0 F 84 24 98 08/25/22 12:00 105/53 L 08/25/22 11:45 107/66 08/25/22 11:45 99.1 F 96 H 18 94 08/25/22 11:30 99.0 F 86 16 97 08/25/22 11:30 107/59 L 08/25/22 11:15 101/54 L 08/25/22 11:15 99.0 F 82 15 97 08/25/22 11:00 99.0 F 85 26 H 99 08/25/22 11:00 114/55 L 08/25/22 10:45 120/60 08/25/22 10:45 99.0 F 82 18 97 08/25/22 10:30 110/62 08/25/22 10:30 99.0 F 92 H 20 94 08/25/22 10:15 108/47 L 08/25/22 10:15 99.0 F 83 19 95 08/25/22 10:00 99.0 F 111 H 33 H 94 08/25/22 10:00 107/58 L 08/25/22 09:45 111/48 L 08/25/22 09:45 99.0 F 85 26 H 96 08/25/22 09:30 105/49 L 08/25/22 09:30 99.0 F 86 20 98 08/25/22 09:15 99.0 F 101 H 23 98 08/25/22 09:15 114/60 08/25/22 09:00 99.0 F 96 H 21 98 08/25/22 09:00 112/59 L 08/25/22 08:51 99.0 F 85 20 97 08/25/22 08:51 111/58 L 08/25/22 08:45 99.0 F 102 H 16 97 08/25/22 08:45 107/59 L 08/25/22 08:30 108/56 L 08/25/22 08:30 99.0 F 88 21 96 08/25/22 08:15 115/63 08/25/22 08:15 98.8 F 89 32 H 98 08/25/22 08:00 98.8 F 103 H 20 94 08/25/22 08:00 107/77 08/25/22 07:45 121/60 08/25/22 07:45 99.0 F 93 H 26 H 99 08/25/22 07:30 96/46 L 08/25/22 07:30 98.8 F 84 14 98 08/25/22 07:15 119/58 L 08/25/22 07:15 98.8 F 83 18 98 08/25/22 07:00 98.8 F 84 20 95 08/25/22 07:00 112/58 L 08/25/22 07:10 112/58 L 08/25/22 05:40 99.0 F 88 18 94 08/25/22 05:30 99.0 F 84 18 94 08/25/22 05:30 105/46 L 08/25/22 05:20 99.0 F 79 14 96 08/25/22 05:15 109/51 L 08/25/22 05:15 98.8 F 86 22 96 08/25/22 05:10 99.0 F 85 17 96 08/25/22 05:00 99.0 F 82 15 94 08/25/22 05:00 104/55 L 08/25/22 04:50 99.0 F 105 H 27 H 93 08/25/22 04:45 105/54 L 08/25/22 04:45 99.0 F 106 H 24 98 08/25/22 04:40 99.1 F 85 14 95 08/25/22 04:30 99.1 F 80 14 95 08/25/22 04:30 106/46 L 08/25/22 04:20 99.1 F 87 15 95 08/25/22 04:15 110/53 L 08/25/22 04:15 99.1 F 90 15 97 08/25/22 04:10 99.1 F 90 27 H 93 08/25/22 04:00 99.1 F 81 19 97 08/25/22 04:00 107/55 L 08/25/22 03:50 99.1 F 81 22 95 08/25/22 03:45 113/54 L 08/25/22 03:45 99.1 F 87 25 H 97 08/25/22 03:55 99.1 F 86 97 O2 Del Method O2 Flow Rate 08/25/22 14:45 08/25/22 14:45 08/25/22 14:30 08/25/22 14:30 08/25/22 14:15 08/25/22 14:15 08/25/22 14:00 08/25/22 14:00 08/25/22 13:45 08/25/22 13:45 08/25/22 13:30 08/25/22 13:30 08/25/22 13:15 08/25/22 13:15 08/25/22 13:00 08/25/22 13:00 08/25/22 12:45 08/25/22 12:45 08/25/22 12:30 08/25/22 12:30 08/25/22 08:00 Nasal Cannula 2 08/25/22 12:15 08/25/22 12:15 08/25/22 12:00 08/25/22 12:00 08/25/22 11:45 08/25/22 11:45 08/25/22 11:30 08/25/22 11:30 08/25/22 11:15 08/25/22 11:15 08/25/22 11:00 08/25/22 11:00 08/25/22 10:45 08/25/22 10:45 08/25/22 10:30 08/25/22 10:30 08/25/22 10:15 08/25/22 10:15 08/25/22 10:00 08/25/22 10:00 08/25/22 09:45 08/25/22 09:45 08/25/22 09:30 08/25/22 09:30 08/25/22 09:15 08/25/22 09:15 08/25/22 09:00 08/25/22 09:00 08/25/22 08:51 08/25/22 08:51 08/25/22 08:45 08/25/22 08:45 08/25/22 08:30 08/25/22 08:30 08/25/22 08:15 08/25/22 08:15 08/25/22 08:00 08/25/22 08:00 08/25/22 07:45 08/25/22 07:45 08/25/22 07:30 08/25/22 07:30 08/25/22 07:15 08/25/22 07:15 08/25/22 07:00 08/25/22 07:00 08/25/22 07:10 08/25/22 05:40 08/25/22 05:30 08/25/22 05:30 08/25/22 05:20 08/25/22 05:15 08/25/22 05:15 08/25/22 05:10 08/25/22 05:00 08/25/22 05:00 08/25/22 04:50 08/25/22 04:45 08/25/22 04:45 08/25/22 04:40 08/25/22 04:30 08/25/22 04:30 08/25/22 04:20 08/25/22 04:15 08/25/22 04:15 08/25/22 04:10 08/25/22 04:00 08/25/22 04:00 08/25/22 03:50 08/25/22 03:45 08/25/22 03:45 08/25/22 03:55 Nasal Cannula 2 PG Care Time/CCT Total # of Minutes Spent Total Time Spent with Patient: Total time spent is greater than 50% in coordination of care (as documented) at patient's floor/unit and/or counseling patient: Coding Level of Care Code 39074 Inpt Consult Level 3 Diagnoses Sigmoid volvulus K56.2 Dementia F03.90 Dementia behavioral disturbance: without behavioral disturbance Dementia type: unspecified type Hypothyroidism E03.9 (1) Dementia Dementia behavioral disturbance: without behavioral disturbance Dementia type: unspecified type Qualified Code(s): F03.90 - Unspecified dementia without behavioral disturbance
[2022-08-25] MEDS: HALOPERIDOL LACTATE 5 MG/ML 1 ML VIAL IV PRN ×2 (16:31→23:22)
[2022-08-25 18:37] LABS: Hemoglobin 11.6 g/dl (12.0-16.0); Mean Corpuscular Hemoglobin 28.5 pg (25.0-34.0); Mean Corpuscular Hgb Conc 33.1 g/dL (32.0-36.0); Mean Platelet Volume 10.9 fL (9.4-12.3); Platelet Count 175 K/uL (130-400); RDW Coefficient of Variation 14.5 % (11.5-14.5); RDW Standard Deviation 45.6 fL (36.4-46.3); Red Blood Count 4.07 M/uL (3.93-5.22); White Blood Count 13.92 K/ul (4.8-10.8)
[2022-08-26] MEDS: cefOXitin 2,000 MG in DEXTROSE 5% 50 ML IV SCH ×3 (00:18→15:15)
[2022-08-26] MEDS: ICU ELECTROLYTE REPLACEMENT PROTOCOL SCH ×2 (06:08→19:23)
[2022-08-26 07:25] LABS: Basophils # (auto) 0.02 K/uL (0-0.2); Basophils % (auto) 0.2 %; Eosinophils # (auto) 0.08 K/uL (0-0.50); Eosinophils % (auto) 0.7 %; Hematocrit (blood only) 31.9 % (34.1-44.9); Hemoglobin 10.7 g/dl (12.0-16.0); Immature Granulocytes # (auto) 0.08 K/uL (0.00-0.02); Immature Granulocytes % (auto) 0.7 %; Lymphocytes # (auto) 0.75 K/uL (1.2-3.4); Lymphocytes % (auto) 6.5 %; Mean Corpuscular Hemoglobin 28.9 pg (25.0-34.0); Mean Corpuscular Hgb Conc 33.5 g/dL (32.0-36.0); Mean Corpuscular Volume 86.2 fL (80.0-100.0); Monocytes # (auto) 0.69 K/uL (0.24-0.82); Neutrophils % (auto) 85.9 %; Platelet Count 189 K/uL (130-400); RDW Coefficient of Variation 14.3 % (11.5-14.5); RDW Standard Deviation 45.2 fL (36.4-46.3); White Blood Count 11.52 K/ul (4.8-10.8)
[2022-08-26 07:52] LABS: BUN Creatinine Ratio 18.9 (10-20); Calcium 7.6 mg/dl (8.5-10.1); Creatinine Clr Calc Pharmacy 60.8 ml/min; Est GFR (African American) 103.9 ml/min; Est GFR (Non-African American) 89.7 ml/min; Potassium 3.6 mmol/L (3.5-5.1)
--- NOTE | 2022-08-26 08:08 | Surgery Progress Note ---
Date of Service August 26, 2022 Assessment & Plan (1) Sigmoid volvulus: Plan: POD 3 ex lap/colostomy seen with Dr. Arrieta afebrile, WBC trending down bowel function returning, d/c NG and start clears Admission and Anticipated Discharge Date Admission Date: August 23, 2022 Supervising Physician Co-Signing Physician Notes As per Toño holman The abdomen is soft incision without any drainage or redness We will start oral intake today Subjective "some" pain, no acute distress Physical Exam Gastrointestinal (Abdomen): Inspection/Auscultation: + abdominal surgical incision (no erythema, some dried blood); abdomen not distended Percussion/Palpation: abdomen soft Pouch full of air, no stool yet Results & Data ([facility]) Vital Signs (Past 12 Hours) Vital Signs Temp Pulse Pulse Resp BP Pulse Ox O2 Del Method 08/26/22 07:24 36.6 C 114 H 20 115/61 98 Room Air 08/26/22 02:59 36.5 C 108 H 20 117/72 96 Room Air 08/26/22 00:00 110 H 08/25/22 23:00 36.6 C 121 H 18 122/66 97 Nasal Cannula PG Care Time/CCT Total # of Minutes Spent Total Time Spent with Patient: Total time spent is greater than 50% in coordination of care (as documented) at patient's floor/unit and/or counseling patient: Coding Level of Care Code None Diagnoses Sigmoid volvulus K56.2
--- NOTE | 2022-08-26 10:37 | Electrocardiogram Report ---
Test Reason : Blood Pressure : / mmHG Vent. Rate : 091 BPM Atrial Rate : 091 BPM P-R Int : 172 ms QRS Dur : 078 ms QT Int : 370 ms P-R-T Axes : 077 064 070 degrees QTc Int : 455 ms Poor data quality, interpretation may be adversely affected Sinus rhythm with Premature atrial complexes Increased R/S ratio in V1, consider early transition or posterior infarct Abnormal ECG When compared with ECG of 24-AUG-2022 11:25, Premature atrial complexes are now Present Vent. rate has decreased BY 57 BPM T wave inversion no longer evident in Inferior leads T wave inversion no longer evident in Anterior leads Confirmed by Leeroy Parry ([id number] on 08/26/2022 10:37:13 AM Referred By: REFERRED SELF Confirmed By:Leeroy Parry
[2022-08-26] MEDS: PANTOprazole 40 MG in SYRINGE 0 ML IV SCH (11:30)
--- NOTE | 2022-08-26 15:00 | Hospitalist Progress Note ---
Date of Service August 26, 2022 Assessment & Plan (1) Sigmoid volvulus: Plan: Patient presented on August 23 with a sigmoid volvulus taken to surgery and ending with a sigmoid colon resection, end colostomy, repair of an umbilical hernia -Starting clear liquid, today, patient is tachycardic, patient is dehydrated on exam, started on saline at rate 100 mm/h, patient has some bloody tinged ostomy output -Postop day 3 (2) Dementia: Plan: Patient is prehospital did take memantine and donepezil is currently on hold in her postoperative state pt has hospital delirium, will use some prn iv Haldol as pts delirium may prevent po Zyprexa (3) Hypothyroidism: Plan: Continues on Synthroid when taking p.o. if prolonged may consider IV dose 50% of oral dose TSH checked in May was normal range Plan Patient placed on a PPI with her intubation for reduction of VAP DVT PROPHYLAXIS - SCDS, Hold on chemoprophylaxis at this time-especially with hematochezia Diet: NPO CODE Status: DNR/DNI Admission and Anticipated Discharge Date Admission Date: August 23, 2022 Subjective Patient is confused, currently on restraint, no complaint, tachycardic, most likely secondary to dehydration, increase the fluid 200 mm/h, patient is mildly hypertensive with systolic blood pressure in 140s- 130s Physical Exam Physical Exam: The patient appeared thin and chronically ill Vital signs as documented. Head exam is normocephalic atraumatic Neck is without JVD, thyromegaly, or carotid bruits. Lungs are clear to auscultation, no focal loss of breath sounds Cardiac exam, Rhythm is regular.. No murmurs, rubs or gallops. Abdominal exam reveals absent bowel sounds, soft ostomy in left abdomen, no gas in bag, some slight serosang fluid Extremities are nonedematous and both pedal pulses are present Neurologic exam is alert and oriented x1, no focal loss of strength or sensation, has soft limb restraints Skin is without bruises or rashes Psychologically is with dementia and agitation Results & Data Results & Data ([facility]) Vital Signs (Past 12 Hours) Vital Signs Temp Pulse Pulse Resp BP Pulse Ox O2 Del Method 08/26/22 08:00 119 H 08/26/22 11:15 36.5 C 118 H 20 134/70 97 Room Air 08/26/22 09:38 Nasal Cannula 08/26/22 07:24 36.6 C 114 H 20 115/61 98 Room Air 08/26/22 02:59 36.5 C 108 H 20 117/72 96 Room Air O2 Flow Rate 08/26/22 08:00 08/26/22 11:15 08/26/22 09:38 2 08/26/22 07:24 08/26/22 02:59 PG Care Time/CCT Total # of Minutes Spent Total Time Spent with Patient: Total time spent is greater than 50% in coordination of care (as documented) at patient's floor/unit and/or counseling patient: Coding Level of Care Code 87928 Subseq Hosp Care Lvl 2 Diagnoses Sigmoid volvulus K56.2 Dementia F03.90 Dementia behavioral disturbance: without behavioral disturbance Dementia type: unspecified type Hypothyroidism E03.9 (1) Dementia Dementia behavioral disturbance: without behavioral disturbance Dementia type: unspecified type Qualified Code(s): F03.90 - Unspecified dementia without behavioral disturbance
[2022-08-26] MEDS: LACTATED RINGER'S 1,000 ML IV SCH (15:13)
[2022-08-26] MEDS ORDERED: STAT IV Infusion **Titration per Protocol STA (18:50)
[2022-08-26] MEDS ORDERED: ENOXAPARIN 1 MG/KG SC SCH (19:00)
[2022-08-26] MEDS ORDERED: ENOXAPARIN INJ 60 MG/0.6 ML SYR SQ SCH (19:15)
[2022-08-26] MEDS: dilTIAZem HCL 125 MG in DEXTROSE 5% 100 ML IV SCH (19:34)
[2022-08-27] MEDS: LACTATED RINGER'S 1,000 ML IV SCH (02:17)
[2022-08-27 05:08] LABS: Basophils # (auto) 0.03 K/uL (0-0.2); Basophils % (auto) 0.3 %; Eosinophils # (auto) 0.11 K/uL (0-0.50); Hematocrit (blood only) 34.9 % (34.1-44.9); Hemoglobin 11.8 g/dl (12.0-16.0); Immature Granulocytes # (auto) 0.15 K/uL (0.00-0.02); Immature Granulocytes % (auto) 1.4 %; Lymphocytes # (auto) 0.86 K/uL (1.2-3.4); Lymphocytes % (auto) 7.9 %; Mean Corpuscular Hemoglobin 28.7 pg (25.0-34.0); Mean Corpuscular Hgb Conc 33.8 g/dL (32.0-36.0); Mean Corpuscular Volume 84.9 fL (80.0-100.0); Mean Platelet Volume 10.6 fL (9.4-12.3); Monocytes # (auto) 1.01 K/uL (0.24-0.82); Monocytes % (auto) 9.2 %; Neutrophils # (auto) 8.76 K/uL (1.4-6.5); Neutrophils % (auto) 80.2 %; Platelet Count 223 K/uL (130-400); RDW Coefficient of Variation 14.5 % (11.5-14.5); RDW Standard Deviation 44.9 fL (36.4-46.3); Red Blood Count 4.11 M/uL (3.93-5.22); White Blood Count 10.92 K/ul (4.8-10.8)
[2022-08-27] MEDS ORDERED: FUROSEMIDE INJ 20 MG/2 ML VIAL IV ONE (05:10)
[2022-08-27] MEDS ORDERED: POTASSIUM CHLORIDE CRTAB 20 MEQ TABCR PO STA (05:11)
[2022-08-27 05:42] LABS: BUN Creatinine Ratio 15.2 (10-20); Calcium 8.3 mg/dl (8.5-10.1); Creatinine Clr Calc Pharmacy 75.9 ml/min; Est GFR (African American) 108.9 ml/min; Magnesium 1.8 mg/dl (1.7-2.4); Phosphorus 2.1 mg/dl (2.5-4.9); Potassium 3.3 mmol/L (3.5-5.1)
[2022-08-27] MEDS: POTASSIUM CHLORIDE 20 MEQ/15 ML UDC PO STA ×2 (05:55→07:42)
--- NOTE | 2022-08-27 07:42 | XRay Report ---
XR chest 1V portable CLINICAL HISTORY: crackles TECHNIQUE: Single frontal radiograph of the chest was obtained. Comparison: Comparison is made to chest radiograph 08/24/2020 FINDINGS: No lines and tubes are seen. Calcified aortic knob is seen. Prominence and cephalization of the vascu lature is seen. Trace bilateral pleural effusions are noted. IMPRESSION: Trace bilateral pleural effusions. Mild pulmonary edema. ACT 112: Negative or not required by law. Electronically signed by: Nasir Sauceda M.D. 08/27/2022 7:41 AM
[2022-08-27] MEDS: cefOXitin 2,000 MG in DEXTROSE 5% 50 ML IV SCH ×4 (07:43→19:21)
--- NOTE | 2022-08-27 09:20 | Surgery Progress Note ---
Date of Service August 27, 2022 Assessment & Plan (1) Sigmoid volvulus: Plan: POD 4 ex lap/colostomy WBC 10.9. on supplemental O2, requiring lasix for diuresis Ostomy function w/ + stool Will advance to low fiber diet Pt seen/examined with Dr. Arrieta Admission and Anticipated Discharge Date Admission Date: August 23, 2022 Supervising Physician Co-Signing Physician Notes As per Tiny Kim physician laboratory chemical assistant The patient this morning appears to be more short of breath than yesterday no audible wheezing Chest x-ray showed some findings of pulmonary edema patient is being diuresed Subjective patient unable to provide any meaningful history due to dementia Physical Exam Physical Exam: awake/confused. on restraints Respiratory: on 3L o2 Gastrointestinal (Abdomen): Inspection/Auscultation: + abdominal surgical incision (c/d/i with midline melissa); abdomen not distended Percussion/Palpation: abdomen soft; abdomen nontender ostomy with + stool in bag Results & Data ([facility]) Vital Signs (Past 12 Hours) Vital Signs Temp Pulse Pulse Resp BP Pulse Ox O2 Del Method 08/27/22 07:17 36.5 C 100 H 18 169/72 H 98 Nasal Cannula 08/26/22 22:01 111 H 08/26/22 22:42 36.2 C L 119 H 20 149/73 H 92 Room Air O2 Flow Rate 08/27/22 07:17 3 08/26/22 22:01 08/26/22 22:42 PG Care Time/CCT Total # of Minutes Spent Total Time Spent with Patient: Total time spent is greater than 50% in coordination of care (as documented) at patient's floor/unit and/or counseling patient: Coding Level of Care Code None Diagnoses Sigmoid volvulus K56.2
[2022-08-27] MEDS: ENOXAPARIN INJ 60 MG/0.6 ML SYR SQ SCH ×2 (09:36→20:48)
[2022-08-27] MEDS: PANTOprazole 40 MG in SYRINGE 0 ML IV SCH (10:28)
--- NOTE | 2022-08-27 12:17 | Electrocardiogram Report ---
Test Reason : Blood Pressure : / mmHG Vent. Rate : 133 BPM Atrial Rate : 136 BPM P-R Int : 000 ms QRS Dur : 080 ms QT Int : 278 ms P-R-T Axes : 000 069 055 degrees QTc Int : 413 ms Atrial fibrillation with rapid ventricular response Abnormal ECG When compared with ECG of 25-AUG-2022 16:12, Atrial fibrillation has replaced Sinus rhythm Confirmed by Donta Rand ([id number]) on 08/27/2022 12:17:37 PM Referred By: REFERRED SELF Confirmed By:Donta Rand
--- NOTE | 2022-08-27 19:11 | Hospitalist Progress Note ---
Date of Service August 27, 2022 Assessment & Plan (1) Paroxysmal A-fib: Plan: Patient developed paroxysmal A. fib with RVR Started on Cardizem drip Started on Cardizem 30 mg every 6 hours Lovenox full dose twice daily Cardiology consult Echocardiogram TSH Possibly triggered by recent surgery Proceed with chest x-ray (2) Sigmoid volvulus: Plan: Patient presented on August 23 with a sigmoid volvulus taken to surgery and ending with a sigmoid colon resection, end colostomy, repair of an umbilical hernia -Starting clear liquid, -Poor intake according to the nurses Continue IV fluid at the rate of 100 mL/h Chest x-ray (3) Dementia: Plan: Patient is prehospital did take memantine and donepezil is currently on hold in her postoperative state Complicated with delirium currently on as needed Haldol (4) Hypothyroidism: Plan: Continues on Synthroid when taking p.o. Admission and Anticipated Discharge Date Admission Date: August 23, 2022 Subjective patient unable to provide any meaningful history due to dementia Physical Exam Physical Exam: The patient appeared thin and chronically ill Vital signs as documented. Head exam is normocephalic atraumatic Neck is without JVD, thyromegaly, or carotid bruits. Lungs are clear to auscultation, no focal loss of breath sounds Cardiac exam, Rhythm is regular.. No murmurs, rubs or gallops. Abdominal exam reveals absent bowel sounds, soft ostomy in left abdomen, no gas in bag, some slight serosang fluid Extremities are nonedematous and both pedal pulses are present Neurologic exam is alert and oriented x1, no focal loss of strength or sensation, has soft limb restraints Skin is without bruises or rashes Psychologically is with dementia and agitation Results & Data Results & Data ([facility]) Vital Signs (Past 12 Hours) Vital Signs Temp Pulse Pulse Resp BP Pulse Ox O2 Del Method 08/27/22 18:47 90 Nasal Cannula 08/27/22 16:00 114 H 08/27/22 15:50 36.4 C L 99 H 20 158/77 H 95 Room Air 08/27/22 11:42 36.8 C 122 H 18 145/69 H 99 Nasal Cannula 08/27/22 09:00 Room Air 08/27/22 08:00 107 H 08/27/22 07:17 36.5 C 100 H 18 169/72 H 98 Nasal Cannula O2 Flow Rate 12/26/22 18:47 2 08/27/22 16:00 08/27/22 15:50 08/27/22 11:42 3 08/27/22 09:00 08/27/22 08:00 08/27/22 07:17 3 PG Care Time/CCT Total # of Minutes Spent Total Time Spent with Patient: Total time spent is greater than 50% in coordination of care (as documented) at patient's floor/unit and/or counseling patient: Coding Level of Care Code 61591 Subseq Hosp Care Lvl 3 Diagnoses Paroxysmal A-fib I48.0 Sigmoid volvulus K56.2 Dementia F03.90 Dementia behavioral disturbance: without behavioral disturbance Dementia type: unspecified type Hypothyroidism E03.9 (1) Dementia Dementia behavioral disturbance: without behavioral disturbance Dementia type: unspecified type Qualified Code(s): F03.90 - Unspecified dementia without behavioral disturbance
[2022-08-27] MEDS: dilTIAZem HCl 60 MG TAB PO SCH (20:51)
[2022-08-28] MEDS: dilTIAZem HCL 125 MG in DEXTROSE 5% 100 ML IV SCH ×2 (00:24→12:38)
[2022-08-28] MEDS: cefOXitin 2,000 MG in DEXTROSE 5% 50 ML IV SCH ×4 (02:27→21:27)
[2022-08-28 06:39] LABS: Hematocrit (blood only) 34.3 % (34.1-44.9); Hemoglobin 11.7 g/dl (12.0-16.0); Mean Corpuscular Hemoglobin 28.5 pg (25.0-34.0); Mean Corpuscular Hgb Conc 34.1 g/dL (32.0-36.0); Mean Corpuscular Volume 83.5 fL (80.0-100.0); Mean Platelet Volume 10.2 fL (9.4-12.3); Platelet Count 252 K/uL (130-400); RDW Coefficient of Variation 14.5 % (11.5-14.5); RDW Standard Deviation 43.8 fL (36.4-46.3); Red Blood Count 4.11 M/uL (3.93-5.22); White Blood Count 8.47 K/ul (4.8-10.8)
[2022-08-28 07:04] LABS: BUN Creatinine Ratio 23.4 (10-20); Calcium 8.1 mg/dl (8.5-10.1); Creatinine Clr Calc Pharmacy 68.6 ml/min; Est GFR (African American) 108.1 ml/min; Est GFR (Non-African American) 93.3 ml/min; Magnesium 1.9 mg/dl (1.7-2.4); Phosphorus 2.6 mg/dl (2.5-4.9); Potassium 3.3 mmol/L (3.5-5.1)
[2022-08-28] MEDS: ENOXAPARIN INJ 60 MG/0.6 ML SYR SQ SCH ×2 (07:34→21:27)
[2022-08-28] MEDS: dilTIAZem HCl 60 MG TAB PO SCH ×2 (07:35→13:28)
--- NOTE | 2022-08-28 10:16 | Surgery Progress Note ---
Date of Service August 28, 2022 Assessment & Plan (1) Sigmoid volvulus: Plan: Currently no surgical issues. White blood cell count is normal she is afebrile. Appreciate internal medicine's assistance. Admission and Anticipated Discharge Date Admission Date: August 23, 2022 Subjective Patient seen. In restraints secondary to dementia and confusion. Per nursing she is doing okay. She does eat although does not have a big appetite. They have to feed her Physical Exam Physical Exam: Alert but completely confused. Unable to answer any questions Her midline incision is healing nicely with no drainage or sign of infection. Stoma is intact with good stool output Results & Data ([facility]) Vital Signs (Past 12 Hours) Vital Signs Temp Pulse Pulse Pulse Resp BP Pulse Ox 08/28/22 08:00 08/28/22 08:00 88 08/28/22 07:24 36.5 C 83 16 126/62 98 08/28/22 03:07 36.8 C 76 14 123/51 L 95 08/28/22 01:16 08/28/22 00:00 95 H 08/27/22 23:35 36.3 C L 91 H 20 120/54 L 98 O2 Del Method O2 Flow Rate 08/28/22 08:00 Nasal Cannula 4 08/28/22 08:00 08/28/22 07:24 Nasal Cannula 4 08/28/22 03:07 Nasal Cannula 5 08/28/22 01:16 Nasal Cannula 4 08/28/22 00:00 08/27/22 23:35 Nasal Cannula 5 PG Care Time/CCT Total # of Minutes Spent Total Time Spent with Patient: Total time spent is greater than 50% in coordination of care (as documented) at patient's floor/unit and/or counseling patient: Coding Level of Care Code None Diagnoses Sigmoid volvulus K56.2
--- NOTE | 2022-08-28 15:17 | Cardiology Consultation ---
Date of Consultation August 28, 2022 Assessment & Plan (1) Bowel obstruction: (2) Sigmoid volvulus: (3) Paroxysmal A-fib: - Recommend rhythm control and anticoagulation. -Patient is on Lovenox, daily CBCs planned for tomorrow to reassess her hemoglobin. -Potassium replaced, repeat chemistry panel ordered for tomorrow -Discontinue IV diltiazem -Given her history of CAD, will ease of of oral diltiazem and start metoprolol tartrate 25 mg BID, first dose am of 08/29. -May need to titrate the metoprolol, and even add the diltiazem back , however would favor caution in and attempt to avoid low BP or bradycardia. History of Present Illness Attending Physician: Sanju Hastings MD History of Present Illness Sweta Medina is an 82-year-old female seen in cardiology consultation per the request of Dr Hastings for the evaluation of atrial fibrillation. The patient has an apparent past history of dementia as well as stroke. Her most recent outpatient cardiology encounter had been in July, having seen Dr Drake at [facility] at that time. Progress note describes a history of coronary heart disease with coronary stenting in 2009, anatomical details unknown, based on previous echocardiogram with right coronary artery territory wall motion abnormality, it was felt that it was likely a right coronary territory stent. Patient's cardiac history otherwise notable for dyslipidemia. Patient presented on 08/23/22 from [facility] with abdominal pain and distention. On 08/23/2022 patient underwent exploratory laparotomy with reduction of a sigmoid volvulus sigmoid colon resection, and end colostomy, and repair of umbilical hernia. Postoperatively, she had been in the intensive care unit, and required Levophed for blood pressure support. EKG performed 08/26/2022 at 1841 revealed atrial fibrillation with rapid ventricular response at 133 bpm, tender placed a tracing revealing sinus rhythm performed 08/25/2022. Patient has been started on 8 diltiazem infusion, followed by oral diltiazem at 60 mg 3 times daily. She is currently anticoagulated receiving Lovenox 60 mg SQ every 12 hours. If the patient's cognitive status, she is unable to provide history. Allergies Allergy/AdvReac Type Severity Reaction Status Date / Time No Known Allergies Allergy Unverified 08/23/22 18:06 Home Medications Medication Instructions Recorded Confirmed Type acetaminophen 325 mg tablet 650 mg PO DAILY #90 tabs 04/03/19 08/23/22 Rx aspirin 81 mg chewable tablet 81 mg PO DAILY #90 tabs 04/03/19 08/23/22 Rx calcium carbonate 600 mg-vitamin 1 cap PO BID #180 caps 04/03/19 08/23/22 Rx D3 10 mcg (400 unit) capsule cetirizine 10 mg tablet 10 mg PO DAILY #90 tabs 04/03/19 08/23/22 Rx ergocalciferol (vitamin D2) 1,250 50,000 units PO WK #12 caps 04/22/19 08/23/22 Rx mcg (50,000 unit) capsule donepezil 10 mg tablet 10 mg PO DAILY 12/11/20 08/23/22 History acetaminophen 325 mg tablet 650 mg PO Q6 PRN Fever Or Pain 08/23/22 08/23/22 History doxepin 6 mg tablet 6 mg PO HS 08/23/22 08/23/22 History levothyroxine 75 mcg tablet 75 mcg PO DAILY 08/23/22 08/23/22 History melatonin 3 mg tablet 3 mg PO HS 08/23/22 08/23/22 History memantine 10 mg tablet 10 mg PO Q12 08/23/22 08/23/22 History ejwsfxushjuh-odemmdca-wummwz 1 tab PO DAILY 08/23/22 08/23/22 History tablet (Multivitamin 50 Plus tablet) nitroglycerin 0.4 mg sublingual 0.4 mg sublingual Q5M PRN Chest 08/23/2208/03 History tablet Pain potassium chloride 20 mEq 40 meq PO BID 08/23/22 08/23/22 History tablet,extended release(part/cryst) protein supplement 1 ea PO DAILY 08/23/22 08/23/22 History Patient History Medical History Anxiety Arteriosclerosis of coronary artery Benign essential hypertension Dementia Depression History of esophageal reflux Hyperlipidemia Insomnia Osteoporosis Vitamin D deficiency Surgical History History of colon resection (08/23/22) Exploratory Laparotomy, Reduction of sigmoid volvulus ,Sigmoid Colon Resection, End Colostomy, Repair of Umbilical Hernia(Not Applicable) - Lino Larson DO Social History Smoking Status: Former smoker Hx Alcohol Use: No Preferred Language: [place]alander Communication Ability: Unable marital status: / Current Living Situation: Other Current Living Situation Comment: Assisted Living - [facility] current occupational status: retired Feels Safe at Home: Yes Childhood Exposure to Second-Hand Smoke: No Physical Activity Frequency: Daily Assistive Devices: None Review of Systems Review of Systems: Unobtainable due to cognitive status Physical Exam Constitutional: + thin and + frail appearing Respiratory: Mildly decreased breath sounds in the bases Cardiovascular: Rate/Rhythm: + irregularly irregular Heart Sounds: no murmur Extremities: no edema Gastrointestinal (Abdomen): Colostomy bag in place, dressing over mid, right abdomen Neurologic: Moves all 4 extremities Results & Data ([facility]) Vital Signs (Past 12 Hours) Vital Signs Temp Pulse Pulse Pulse Resp BP Pulse Ox 08/28/22 13:28 68 08/28/22 12:00 37.2 C 76 18 113/53 L 100 08/28/22 08:00 08/28/22 08:00 88 08/28/22 07:24 36.5 C 83 16 126/62 98 O2 Del Method O2 Flow Rate 08/28/22 13:28 08/28/22 12:00 Nasal Cannula 3 08/28/22 08:00 Nasal Cannula 4 08/28/22 08:00 08/28/22 07:24 Nasal Cannula 4 Laboratory Results CBC 08/28/22 Range/Units 05:59 WBC 8.47 (4.8-10.8) K/ul RBC 4.11 (3.93-5.22) M/uL Hgb 11.7 L (12.0-16.0) g/dl Hct 34.3 (34.1-44.9) % Plt Count 252 (130-400) K/uL Comprehensive Metabolic Panel 08/28/22 Range/Units 05:59 Sodium 139 (136-145) mmol/L Potassium 3.3 L (3.5-5.1) mmol/L Chloride 100 (98-107) mmol/L Carbon Dioxide 29 (21-32) mmol/L BUN 11 (6-23) mg/dl Creatinine 0.47 L (0.6-1.2) mg/dl Glucose 103 H (70-99(Fasting)) mg/dl Calcium 8.1 L (8.5-10.1) mg/dl Intake and Output 08/28/22 08/28/22 08/28/22 06:59 14:59 22:59 Intake Total 122.293 / 408.709 176.5 / 176.5 Output Total 100 / 2475 300 / 300 Balance 22.293 / -2066.291 -123.5 / -123.5 Intake: IV 122.293 / 308.709 176.5 / 176.5 cefOXitin 2,000 mg In Dextrose 60 / 173.333 120 / 120 5% 50 ml @ 100 mls/hr IV Q6H [facility] Rx#:[id number] dilTIAZem HCL 125 mg In 62.293 / 75.376 56.5 / 56.5 Dextrose 5% 100 ml @ 5 MG/HR 5 mls/hr IV .Q24H [facility] Rx#: [id number] Output: Urine Amount (Catheter) 100 2325 300 / 300 Moss/Indwelling 100 / 2325 300 / 300 Gastric Drainage 0 / 0 Right Nare 0 / 0 Other: Other Intake Source sips Weight 53.6 kg Weight Measurement Method Built in [facility] Diagnostic Findings Echocardiogram performed 08/28/2022: Atrial fibrillation with ventricular rate in the range of 80 to 90 bpm present during the echocardiogram, [id number]%. No significant valvular pathology
--- NOTE | 2022-08-28 20:22 | Hospitalist Progress Note ---
Date of Service August 28, 2022 Assessment & Plan (1) Paroxysmal A-fib: Plan: Patient developed paroxysmal A. fib with RVR Currently rate controlled, consulted with cardiology, stop Cardizem given history of coronary artery disease started on metoprolol Lovenox full dose twice daily Echocardiogram significant for diastolic heart failure. 1 preserved ejection fraction normal right ventricular function, no significant valvular disease, no evidence of hypokinetic left ventricular movement TSH within normal limit Possibly triggered by recent surgery Proceed with chest x-ray (2) Sigmoid volvulus: Plan: Patient presented on August 23 with a sigmoid volvulus taken to surgery and ending with a sigmoid colon resection, end colostomy, repair of an umbilical hernia -Starting clear liquid, -Poor intake according to the nurses Continue IV fluid at the rate of 100 mL/h Chest x-ray (3) Dementia: Plan: Patient is prehospital did take memantine and donepezil is currently on hold in her postoperative state Complicated with delirium currently on as needed Haldol (4) Hypothyroidism: Plan: Continues on Synthroid when taking p.o. Admission and Anticipated Discharge Date Admission Date: August 23, 2022 Subjective Patient seen. In restraints secondary to dementia and confusion. Per nursing she is doing okay. She does eat although does not have a big appetite. They have to feed her Physical Exam Physical Exam: Alert but completely confused. Unable to answer any questions Her midline incision is healing nicely with no drainage or sign of infection. Stoma is intact with good stool output Constitutional: + thin and + frail appearing; no acute distress ENMT: Mouth: no dentition abnormality Mallampati Class: II Neck: normal visual inspection Respiratory: normal respiratory effort; no respiratory distress Auscultation: lungs clear to auscultation bilaterally Cardiovascular: Rate/Rhythm: regular rate, regular rhythm and + irregularly irregular Heart Sounds: no murmur Extremities: no edema Gastrointestinal (Abdomen): Inspection/Auscultation: + abdominal surgical incision (c/d/i with midline melissa); abdomen not distended Percussion/Palpation: abdomen soft; abdomen nontender Musculoskeletal: Spine: normal cervical ROM Skin: no rashes, warm and dry Psychiatric: Orientation: alert and oriented x 3 Lymphatic: no cervical or axillary lymphadenopathy Results & Data Results & Data ([facility]) Vital Signs (Past 12 Hours) Vital Signs Temp Pulse Pulse Pulse Resp BP Pulse Ox 08/28/22 19:47 37.2 C 85 20 117/63 97 08/28/22 16:00 64 08/28/22 15:21 36.3 C L 61 16 92/47 L 92 08/28/22 13:28 68 08/28/22 12:00 37.2 C 76 18 113/53 L 100 O2 Del Method O2 Flow Rate 08/28/22 19:47 Nasal Cannula 4 08/28/22 16:00 08/28/22 15:21 Nasal Cannula 3 08/28/22 13:28 08/28/22 12:00 Nasal Cannula 3 PG Care Time/CCT Total # of Minutes Spent Total Time Spent with Patient: Total time spent is greater than 50% in coordination of care (as documented) at patient's floor/unit and/or counseling patient: Coding Level of Care Code 13845 Subseq Hosp Care Lvl 3 Diagnoses Paroxysmal A-fib I48.0 Sigmoid volvulus K56.2 Dementia F03.90 Dementia behavioral disturbance: without behavioral disturbance Dementia type: unspecified type Hypothyroidism E03.9 (1) Dementia Dementia behavioral disturbance: without behavioral disturbance Dementia type: unspecified type Qualified Code(s): F03.90 - Unspecified dementia without behavioral disturbance
[2022-08-29] MEDS: cefOXitin 2,000 MG in DEXTROSE 5% 50 ML IV SCH ×2 (00:59→09:15)
[2022-08-29 06:41] LABS: Hematocrit (blood only) 33.2 % (34.1-44.9); Hemoglobin 10.8 g/dl (12.0-16.0); Mean Corpuscular Hemoglobin 28.1 pg (25.0-34.0); Mean Corpuscular Hgb Conc 32.5 g/dL (32.0-36.0); Mean Corpuscular Volume 86.2 fL (80.0-100.0); Mean Platelet Volume 10.1 fL (9.4-12.3); Platelet Count 274 K/uL (130-400); RDW Coefficient of Variation 14.5 % (11.5-14.5); RDW Standard Deviation 45.9 fL (36.4-46.3); Red Blood Count 3.85 M/uL (3.93-5.22); White Blood Count 8.43 K/ul (4.8-10.8)
[2022-08-29 07:19] LABS: BUN Creatinine Ratio 22.6 (10-20); Calcium 8.4 mg/dl (8.5-10.1); Creatinine Clr Calc Pharmacy 60.8 ml/min; Est GFR (African American) 103.9 ml/min; Est GFR (Non-African American) 89.7 ml/min; Potassium 3.3 mmol/L (3.5-5.1)
[2022-08-29 07:25] LABS: Magnesium 1.9 mg/dl (1.7-2.4)
[2022-08-29 07:49] LABS: Phosphorus 2.8 mg/dl (2.5-4.9)
--- NOTE | 2022-08-29 07:53 | Surgery Progress Note ---
Date of Service August 29, 2022 Assessment & Plan (1) Sigmoid volvulus: Plan: s/p exlap, sigmoidectomy, colostomy formation WBC 8. K: 3.3, will need repleted. Afebrile Abdomen soft, incisions c/d/i. Ostomy functioning nicely Needs assistance with feeds, apparently did not eat anything for dinner. RN will try for bfast this AM Appreciate cardiology/medicine's assistance with patient Admission and Anticipated Discharge Date Admission Date: August 23, 2022 Subjective Patient resting in bed. Was able to speak a few words to me this AM. Denies pain. Physical Exam Physical Exam: awake, no distress Gastrointestinal (Abdomen): Inspection/Auscultation: + abdominal surgical incision (midline incision w/ melissa c/d/i ) Percussion/Palpation: abdomen soft; abdomen nontender + viable ostomy with stool in bag Results & Data ([facility]) Vital Signs (Past 12 Hours) Vital Signs Temp Pulse Pulse Resp BP Pulse Ox O2 Del Method 08/29/22 03:20 36.5 C 77 16 116/56 L 96 Nasal Cannula 08/29/22 00:00 71 08/28/22 23:03 36.5 C 68 18 121/56 L 96 Nasal Cannula O2 Flow Rate 08/29/22 03:20 1 08/29/22 00:00 08/28/22 23:03 2 PG Care Time/CCT Total # of Minutes Spent Total Time Spent with Patient: Total time spent is greater than 50% in coordination of care (as documented) at patient's floor/unit and/or counseling patient: Coding Level of Care Code None Diagnoses Sigmoid volvulus K56.2
[2022-08-29] MEDS: ENOXAPARIN INJ 60 MG/0.6 ML SYR SQ SCH (09:19)
[2022-08-29] MEDS: METOPROLOL TARTRATE 25 MG TAB PO SCH ×2 (10:48→20:04)
[2022-08-29] MEDS ORDERED: POTASSIUM CHLORIDE 20 MEQ/15 ML UDC PO STA (16:34)
--- NOTE | 2022-08-29 16:40 | Cardiology Progress Note ---
Date of Service August 29, 2022 Assessment & Plan (1) Bowel obstruction: (2) Sigmoid volvulus: (3) Paroxysmal A-fib: Plan: - telemetry today appears to be sinus tachycardia rate in the range of 110-116 bpm with discernable atrial activity , not present yesterday, appears to be sinus tachycardia , although atrial flutter also a consideration. -pt not able / willing to take metoprolol, spit it out. -I spoke to patient's daughter. -Given her dementia and bleeding risk, I feel the risk of bleeding outweighs the benefits of anticoagulation. -DC anticoagulation dose Lovenox. Start DVT prophylaxis dose tomorrow. -Oral metoprolol as tolerated. HR of 110s acceptable. Asymptomatic. -Stable for transfer back to [place] from a cardiology perspective. -Potassium elixer x 1 dose for potassium of 3.3 Admission and Anticipated Discharge Date Admission Date: August 23, 2022 Subjective Patient seen in follow up. Daughter at the bedside. Pt more awake today. Not conversant. Physical Exam Constitutional: + thin and + frail appearing Respiratory: normal respiratory effort, lungs clear to auscultation Cardiovascular: Rate/Rhythm: + irregularly irregular Heart Sounds: no murmur Extremities: no edema Neurologic: cognitive impairment, moves all 4 extremities Results & Data ([facility]) Vital Signs (Past 12 Hours) Vital Signs Temp Pulse Pulse Resp BP Pulse Ox O2 Del Method 08/29/22 15:51 37.3 C 82 18 141/67 H 96 Nasal Cannula 08/29/22 11:17 36.8 C 86 18 126/53 L 90 Room Air 08/29/22 08:00 Nasal Cannula 08/29/22 08:00 73 O2 Flow Rate 08/29/22 15:51 4 08/29/22 11:17 08/29/22 08:00 2 08/29/22 08:00 Laboratory Results CBC 08/29/22 Range/Units 06:10 WBC 8.43 (4.8-10.8) K/ul RBC 3.85 L (3.93-5.22) M/uL Hgb 10.8 L (12.0-16.0) g/dl Hct 33.2 L (34.1-44.9) % Plt Count 274 (130-400) K/uL Comprehensive Metabolic Panel 08/29/22 Range/Units 06:10 Sodium 142 (136-145) mmol/L Potassium 3.3 L (3.5-5.1) mmol/L Chloride 103 (98-107) mmol/L Carbon Dioxide 31 (21-32) mmol/L BUN 12 (6-23) mg/dl Creatinine 0.53 L (0.6-1.2) mg/dl Glucose 92 (70-99(Fasting)) mg/dl Calcium 8.4 L (8.5-10.1) mg/dl Intake and Output 08/29/22 08/29/22 08/29/22 06:59 14:59 22:59 Intake Total 60 / 296.5 60 / 60 Output Total 125 / 525 Balance -65 / -228.5 60 / 60 Intake: IV 60 / 296.5 60 / 60 cefOXitin 2,000 mg In Dextrose 60 / 240 60 / 60 5% 50 ml @ 100 mls/hr IV Q6H [facility] Rx#:[id number] Oral 0 / 0 Output: Urine Amount (Catheter) 125 / 525 Moss/Indwelling 125 / 525 Other: Weight 53 kg Weight Measurement Method Built in [facility]
--- NOTE | 2022-08-29 18:46 | Hospitalist Progress Note ---
Date of Service August 29, 2022 Assessment & Plan (1) Paroxysmal A-fib: Plan: Telemetry today showed sinus tachycardia, cardiology talk to her daughter, discontinue Lovenox due to risk of fall and bleeding, patient is ready to be discharged from medical standpoint Patient has poor appetite, mirtazapine was added to his regimen Continue metoprolol -Echocardiogram significant for diastolic heart failure grade 1 preserved ejection fraction normal right ventricular function, no significant valvular disease, no evidence of hypokinetic left ventricular movement TSH within normal limit (2) Sigmoid volvulus: Plan: Patient presented on August 23 with a sigmoid volvulus taken to surgery and ending with a sigmoid colon resection, end colostomy, repair of an umbilical hernia -Starting clear liquid, -Poor intake according to the nurses Continue IV fluid at the rate of 100 mL/h Chest x-ray (3) Dementia: Plan: Continue Namenda and donepezil Patient was delirious now doing much better (4) Hypothyroidism: Plan: Continue Synthroid Admission and Anticipated Discharge Date Admission Date: August 23, 2022 Subjective Mental status improved today, but the patient is confused, see the rhythm is A. fib, but the heart rate is controlled, echo is not impressive, patient has poor appetite, started on mirtazapine Physical Exam Physical Exam: The patient appeared thin and chronically ill Vital signs as documented. Head exam is normocephalic atraumatic Neck is without JVD, thyromegaly, or carotid bruits. Lungs are clear to auscultation, no focal loss of breath sounds Cardiac exam, Rhythm is regular.. No murmurs, rubs or gallops. Abdominal exam reveals absent bowel sounds, soft ostomy in left abdomen, no gas in bag, some slight serosang fluid Extremities are nonedematous and both pedal pulses are present Neurologic exam is alert and oriented x1, no focal loss of strength or sensation, has soft limb restraints Skin is without bruises or rashes Psychologically is with dementia and agitation Results & Data Results & Data ([facility]) Vital Signs (Past 12 Hours) Vital Signs Temp Pulse Pulse Resp BP Pulse Ox O2 Del Method 08/29/22 15:51 37.3 C 82 18 141/67 H 96 Nasal Cannula 08/29/22 11:17 36.8 C 86 18 126/53 L 90 Room Air 08/29/22 08:00 Nasal Cannula 08/29/22 08:00 73 O2 Flow Rate 08/29/22 15:51 4 08/29/22 11:17 08/29/22 08:00 2 08/29/22 08:00 PG Care Time/CCT Total # of Minutes Spent Total Time Spent with Patient: Total time spent is greater than 50% in coordination of care (as documented) at patient's floor/unit and/or counseling patient: Coding Level of Care Code 64892 Subseq Hosp Care Lvl 2 Diagnoses Paroxysmal A-fib I48.0 Sigmoid volvulus K56.2 Dementia F03.90 Dementia behavioral disturbance: without behavioral disturbance Dementia type: unspecified type Hypothyroidism E03.9 (1) Dementia Dementia behavioral disturbance: without behavioral disturbance Dementia type: unspecified type Qualified Code(s): F03.90 - Unspecified dementia without behavioral disturbance
[2022-08-29] MEDS: FLUCONAZOLE 100 MG TAB PO SCH (19:24)
[2022-08-29] MEDS ORDERED: MIRTAZAPINE TAB 15 MG TAB PO SCH (21:00)
[2022-08-30] MEDS ORDERED: LEVOTHYROXINE SODIUM 75 MCG TABLET PO SCH (06:30)
[2022-08-30 06:52] LABS: Hematocrit (blood only) 33.2 % (34.1-44.9); Hemoglobin 11.2 g/dl (12.0-16.0); Mean Corpuscular Hemoglobin 28.1 pg (25.0-34.0); Mean Corpuscular Hgb Conc 33.7 g/dL (32.0-36.0); Mean Corpuscular Volume 83.4 fL (80.0-100.0); Mean Platelet Volume 9.5 fL (9.4-12.3); Platelet Count 290 K/uL (130-400); RDW Coefficient of Variation 14.4 % (11.5-14.5); RDW Standard Deviation 43.8 fL (36.4-46.3); Red Blood Count 3.98 M/uL (3.93-5.22); White Blood Count 9.91 K/ul (4.8-10.8)
[2022-08-30 07:09] LABS: BUN Creatinine Ratio 21.8 (10-20); Calcium 8.5 mg/dl (8.5-10.1); Creatinine Clr Calc Pharmacy 58.6 ml/min; Est GFR (African American) 102.7 ml/min; Est GFR (Non-African American) 88.6 ml/min; Magnesium 1.8 mg/dl (1.7-2.4); Phosphorus 2.7 mg/dl (2.5-4.9); Potassium 3.4 mmol/L (3.5-5.1)
[2022-08-30] MEDS: FLUCONAZOLE 100 MG TAB PO SCH (08:12)
[2022-08-30] MEDS: METOPROLOL TARTRATE 25 MG TAB PO SCH (08:12)
[2022-08-30] MEDS ORDERED: ENOXAPARIN INJ 30 MG/0.3 ML SYR SQ SCH (09:00)
--- NOTE | 2022-08-30 10:26 | Surgery Progress Note ---
Date of Service August 30, 2022 Assessment & Plan (1) Sigmoid volvulus: Plan: s/p exlap, sigmoidectomy, colostomy formation WBC 9. K: 3.4, will need repleted. Afebrile Abdomen soft, incisions c/d/i. Ostomy functioning nicely Needs assistance with feeds, did have some boost this AM and took meds with pudding. Started on mirtazapine Appreciate cardiology/medicine's assistance with patient We anticipate discharge back to [facility] today, will touch base with case management Admission and Anticipated Discharge Date Admission Date: August 23, 2022 Subjective patient appears in no distress. Unable to answer questions appropriately due to dementia status. Physical Exam Physical Exam: awake, sitting in bed Respiratory: normal respiratory effort Gastrointestinal (Abdomen): Inspection/Auscultation: + abdominal surgical incision (midline melissa c/d/i; no signs of infection); abdomen not distended Percussion/Palpation: abdomen soft; abdomen nontender viable ostomy with stool in the bag Results & Data ([facility]) Vital Signs (Past 12 Hours) Vital Signs Temp Pulse Pulse Pulse Resp BP Pulse Ox 08/30/22 07:15 37.2 C 114 H 18 129/71 91 08/30/22 04:00 37.6 C H 83 16 147/53 H 91 08/30/22 00:00 94 H 08/29/22 23:30 37.1 C 108 H 18 156/78 H 90 O2 Del Method 08/30/22 07:15 Room Air 08/30/22 04:00 Room Air 08/30/22 00:00 08/29/22 23:30 Room Air PG Care Time/CCT Total # of Minutes Spent Total Time Spent with Patient: Total time spent is greater than 50% in coordination of care (as documented) at patient's floor/unit and/or counseling patient: Coding Level of Care Code None Diagnoses Sigmoid volvulus K56.2
[2022-08-30] MEDS ORDERED: POTASSIUM CHLORIDE 20 MEQ/15 ML UDC PO STA (11:25)
--- NOTE | 2022-08-30 13:39 | Cardiology Progress Note ---
Date of Service August 30, 2022 Assessment & Plan (1) Bowel obstruction: (2) Sigmoid volvulus: (3) Paroxysmal A-fib: Plan: - Patient successfully took her doses of metoprolol last evening and again this morning. -She has reverted to sinus rhythm as noted on telemetry -Given dementia, risks of bleeding especially in the setting of recent intra- abdominal surgery, I think it is prudent to proceed without anticoagulation. -Continue metoprolol tartrate 25 mg twice daily -Lovenox 30 mg SQ every morning, DVT prophylaxis dose. -agree with plans to remove her Moss catheter -[facility] -Case discussed by phone with Tiny Kim PA-C for purpose of coordination of care. Admission and Anticipated Discharge Date Admission Date: August 23, 2022 Subjective Patient awake this morning. Ongoing issues with regards to dementia noted. Not conversant with me. Telemetry reveals what is clearly sinus rhythm in the 80s this morning. Physical Exam Constitutional: + thin and + frail appearing Respiratory: normal respiratory effort, lungs clear to auscultation Cardiovascular: Rate/Rhythm: + irregularly irregular Heart Sounds: no murmur Extremities: no edema Neurologic: Cognitive impairment, moves all 4 extremities Results & Data ([facility]) Vital Signs (Past 12 Hours) Vital Signs Temp Pulse Pulse Resp BP Pulse Ox O2 Del Method 08/30/22 12:33 36.9 C 93 H 16 120/61 90 Room Air 08/30/22 08:00 Room Air 08/30/22 08:00 106 H 08/30/22 07:15 37.2 C 114 H 18 129/71 91 Room Air 08/30/22 04:00 37.6 C H 83 16 147/53 H 91 Room Air Diagnostic Findings Potassium 3.4
--- NOTE | 2022-08-31 08:22 | Discharge Summary ---
Date of Service August 30, 2022 Admission HPI Per Admitting Provider Patient brought in from [facility] with abdominal pain and distention. Patient with dementia and is unable to give history. Principal Diagnosis sigmoid volvulus dementia paroxysmal afib Discharge Exam awake, sitting in bed Respiratory normal respiratory effort Gastrointestinal (Abdomen) Inspection/Auscultation: + abdominal surgical incision (midline melissa c/d/i; no signs of infection); abdomen not distended Percussion/Palpation: abdomen soft; abdomen nontender + viable ostomy with stool noted in the bag Discharge Data Allergies Allergy/AdvReac Type Severity Reaction Status Date / Time No Known Allergies Allergy Unverified 08/23/22 18:06 Consultations 08/23/22 20:37 Consult Floor Plan Adjuster Routine 08/25/22 14:14 Consult Hospitalist Routine 08/27/22 19:16 Consult Cardiology Routine Procedures Performed Operation Date: 08/23/22 17:45 Actual Procedures p Exploratory Laparotomy, Sigmoid Colon Resection, Reduction of Sigmoid Volvulus, End Colostomy, Repair of Umbilical Hernia(Not Applicable) - Lino Larson, Operation Date: 08/24/22 09:00 <No data on this case meets the specified criteria> Ordered Studies 08/23/22 16:13 CT abd pelvis wo con Stat Hospital Course (1) Sigmoid volvulus: This is an 82y F with a PMH of dementia from [facility] who presented to the [facility] ED on 08/23/22 with abdominal pain and distention. Workup with a CT a/p revealed findings concerning for a sigmoid volvulus. Consent was obtained from the son and the patient went to the OR with Dr. Larson for an exploratory laparotomy with sigmoid colon resection and colostomy formation. The patient tolerated the procedure well, see op note for full details. Post op she was transferred to the ICU for close monitoring with hospitalists on board for their assistance throughout her hospitalization. On POD#1 patient was extubated from the ventilator. She remained on post op abx. She continued supportive care in the ICU until she was stable for downgrade to the PCU/tele unit on day 2. The hospitalists assisted us with her post op delirium in addition to her other medical issues. Haldol prn was ordered in addition to soft restraints, both of which were able to be removed as she improved. As the patient started having + output via her colostomy her NGT was removed and diet was slowly initiated. She started with clears and eventually able to progress to low fiber. She needed assistance with the senior staff accountant with eating. Home meds slowly restarted as able. On 08/28 cardiology was consulted as patient went into paroxysmal afib. She was started on beta blockade and lovenox in the short term. She was to continue the metoprolol as an outpatient, and the lovenox was discontinued prior to discharge as she was deemed not an ideal candidate for anticoagulation. Wound care saw patient for ostomy care. On 08/30 she was stable for discharge back to [facility]. She was tolerating a low fiber diet with assistance, pain controlled, ostomy functioning. Incisions c/d/i without signs of infection. Moss catheter was removed prior to her disposition. She will be asked to follow up in clinic with Dr. Larson within 1-2 weeks for post op check and staple removal. Total Time Total Time Spent Total Time Spent (In Minutes): 20 Discharge Plan Discharge Items Patient Disposition: Transfer [facility] Fac Reason For Visit: SIGMOID VOLVULUS Discharge Diagnosis: sigmoid colon resection creation of colostomy Activity: Per Instructions section Lifting: No more than 10 pounds Bathing Comment: may shower; no soaking in tubs/pools Exercise/Sports: Wait until after follow-up appointment Non-emergency contact: Primary Care Provider and Surgeon Call non-emergency contact if: you have any medication questions, your symptoms worsen, your pain is not controlled, your pain is concerning for you, you have a fever, your temperature is above 101.5, your wound has increased redness, your wound has increased drainage and your wound pain has increased Follow-up/Referrals: Lino Larson, DO [Surgeon] - (Please call to schedule follow up in clinic within 1 week for follow up and staple removal) [place] [Primary Care Provider] - Diet: Low Fiber Addtl Attending Provider Instructions: Please care for your colostomy as instructed prior to discharge from the hospital Use 2 3/4" wafer and pouch. Cut at 2". Do not use skin prep to periphery. Do not use bath wipes to clean skin. Change every 7 days and as needed for leaking. You have surgical melissa in place that will be removed at one of your follow up appointments You have been started on a new medication called Metoprolol 25m orally twice daily for heart rate control Please follow up with your Primary Care Provider within 1-2 weeks of discharge Pending Studies at Discharge: Yes Studies:: surgical pathology Stand-Alone Forms: My [facility] Skilled Items Patient informed of condition?: Yes DNR: Yes Discharge Level of Care: Skilled Communicable Disease: No Discharge Prognosis: Stable Lines: None Urinary Catheter: No Medications and DC Order Prescriptions: New metoprolol tartrate 25 mg Tablet 25 mg PO BID 30 Days Qty: 60 0RF mirtazapine 15 mg Tablet 15 mg PO HS 30 Days Qty: 30 0RF Continued ergocalciferol (vitamin D2) 50,000 unit capsule 50,000 units PO WK Qty: 12 3RF acetaminophen 325 mg tablet 650 mg PO DAILY Qty: 90 3RF aspirin 81 mg tablet,chewable 81 mg PO DAILY Qty: 90 3RF calcium carbonate-vitamin D3 600 mg(1,500mg) -400 unit capsule 1 cap PO BID Qty: 180 3RF cetirizine 10 mg tablet 10 mg PO DAILY Qty: 90 3RF donepezil 10 mg tablet 10 mg PO DAILY Rx Instructions: TAKE ONE TABLET BY MOUTH DAILY. *MEMORY* doxepin 6 mg tablet 6 mg PO HS levothyroxine 75 mcg tablet 75 mcg PO DAILY potassium chloride 20 mEq tablet,ER particles/crystals 40 meq PO BID melatonin 3 mg tablet 3 mg PO HS Multivitamin 50 Plus Tablet 1 tab PO DAILY nitroglycerin 0.4 mg tablet, sublingual 0.4 mg SL Q5M PRN (Reason: Chest Pain) memantine 10 mg tablet 10 mg PO Q12 protein supplement Liquid 1 ea PO DAILY Rx Instructions: 60 ml acetaminophen 325 mg tablet 650 mg PO Q6 MDD 3g PRN (Reason: Fever Or Pain) Discharge Orders: Discharge Order (Routine); Ordered 08/30/22 Ordered By: Tiny Watts Admission Data Admit Date/Time: 08/23/22 20:27 Attending Provider: Sanju Hastings Admit Provider: Lino Larson Primary Care Provider: [facility] Other Providers: Tatum Tubbs ; Theresa Carpenter ; Alan Danielson ; Kim Shaffer ; Ye Gonzales ; Jaiden Bass ; Ranjith Stephen ; Bear Vieira ; Carlito Acuna ; Sushila Katz ; Marlene Marroquin ; Pasquale Ramirez ; Amarilis Valdez ; Darwin Tubbs ; Kevon Guy ; Hermelinda Sow ; Ritika Norton ; Diane Peralta ; Raúl Sesay ; Benedict Owens ; Livia Ballard ; Kim Martínez ; Ren Whittington ; Ming Man ; Ye Rosario ; Tierney Sagastume ; Rai Bender ; Mark Espinoza ; Anjali Mcdonough ; Wolfgang Kowalski ; Ashtyn Payne ; Cale Vazquez ; Manda Velez ; Brandon Monroe ; Dawson Francis ; Shelly Alvarez ; Sanju Hastings ; Lino Larson ; Jerel Cuevas Other Interventions: Discharge Summary Assessment (RN) Last Done: 08/30/22 15:18 Coding Level of Care Code D/C DAY MANAGEMENT <30 MINS Diagnoses Sigmoid volvulus K56.2
--- NOTE | 2022-09-12 07:48 | Coding Query ---
SEPSIS To promote full compliance with coding requirements relating to patient care, physician participation is requested in all cases of nurse transitional uncertainty. Please assist us with the question(s) below: In responding to this query, please exercise your independent professional judgement. The fact that a question is asked does not imply that any particular answer is desired or expected. We appreciate your clarification on this issue. The medical record reflects the following clinical findings: Pt admitted with volvulus, Went to OR for resection sigmoid and colostomy . Transferred to ICU intubated/sedation. CCU progress notes document SVT/postop fever due to ? Sepsis/Shock. New onset fever postsursgery Please check below, if applicable, the diagnosis that was monitored[facility]. Thank you ! Zak Trujillo GEODETIC SURVEYOR TECHNOLOGIST [facility] ____ ( )Bacteremia (Nonspecific laboratory finding of bacteria in the blood) Specify Organism ( ) Present on Admission ( ) Not present on admission ( ) Unable to clinically determine ( ) Septicemia (Systemic disease associated with the presence of pathogenic microorganisms in the blood): Specify Organism ( ) Present on Admission ( ) Not present on admission ( ) Unable to clinically determine ( ) Sepsis Specify Organism Specify Associated Condition/Diagnosis () Present on Admission () Not present on admission () Unable to clinically determine ( ) Severe Sepsis (Sepsis associated with acute organ dysfunction) Specify Organism Specify Associated Condition/Diagnosis ( ) Present on Admission ( ) Not present on admission ( ) Unable to clinically determine ( ) Septic Shock (Severe sepsis with acute circulatory failure, unexplained by other causes) () Present on Admission ( ) Not present on admission ( ) Unable to clinically determine ( x) Other, patient has: no documented sepsis MTDD
== END 2022-08-30 14:00 | DRG 330 ==
LOC: ED 15:39 → 1E 18:54 → OR 18:54 → 1E 20:27 → SUATTDRO 20:27 → 2S 08-25 18:37

== ENCOUNTER 2022-09-04 19:10 | Inpatient (IN) ==
[2022-09-04] MEDS ORDERED: SODIUM CHLORIDE 0.9% 1000ML 1,000 ML IV ONE (19:35)
--- NOTE | 2022-09-04 19:40 | Emergency Department Note ---
Impression & Plan Change in mental status, Dementia, S/P colostomy, Sigmoid volvulus ED Provider Note NAME: YANICK GRIFFIN AGE: 82 SEX: F ARRIVES VIA: Ambulance INFORMANT: Patient ED PROVIDER(S): Corky Campo MD CHIEF COMPLAINT: Generalized weakness, confusion from baseline dementia, no ostomy output PLAN: Disposition: Admit MEDICAL DECISION MAKING: The patient is an 82-year-old woman with past medical history of dementia with recent history of bowel obstruction/sigmoid volvulus status post colostomy at this facility on 08/31 who presents emergency department from [facility] for concern for decreased/no ostomy output for the past 4 days and a decline in mental status from her baseline with poor oral intake. Patient is a poor historian herself and at this time is nonverbal. On arrival patient is no acute distress, afebrile stable vital signs. She appears clinically dry. The left lower quadrant colostomy site appears clean dry and intact. Jackson in place are clean dry and intact. WBC 12.5K nonspecific. H/H similar to prior. Platelets within normal limits. Chemistry without metabolic acidosis. Electrolytes and LFTs without significant abnormality. Lipase is not elevated. TSH 7 however free T4 within normal limits. COVID-19 RNA, JASMYN test was negative. UA without convincing evidence of infection. CT head negative for acute abnormality. CT abdomen pelvis was performed and demonstrates the patient's colostomy but comments on distended rectal stump which may be postoperative but a contained rectal stump leak cannot be excluded. General surgery was consulted, Case was discussed with Demetris Mazariegos, General surgery PAC, with Dr. Clay, general surgery on-call, who evaluated the patient. Appreciate recommendations. Recommend admission for observation, suppositories to facilitate decompression o f rectal stump and empiric antibiotics for the possibility of pouchitis. I did discuss this plan for admission with the patient's son over the phone and agrees with admission at this time. Case was discussed with Dr. Danielson, [facility] hospitalist, who will evaluate the patient for admission. Triage Nursing notes reviewed and agree them. Prior medical records reviewed Vital Signs: reviewed Differential diagnosis: Infection, dehydration, metabolic abnormality, hypo/hyperglycemia, electrolyte disturbance, anemia, hypoxia, cardiac sources, intracerebral event, toxicologic, neurologic, as well as other pathologies. ER treatment provided: See below. Diagnostics interpreted by me: Cardiac Monitoring: An order for continuous cardiac monitoring was placed and demonstrated normal sinus rhythm, 75 bpm, no ectopy. Laboratory studies: See below Imaging studies: See below Consultation(s): Demetris Mazariegos, General surgery PAC, with Dr. Clay, general surgery on-call HPI: The patient is an 82-year-old woman with past medical history of dementia with recent history of bowel obstruction/sigmoid volvulus status post colostomy at this facility on 08/31 who presents emergency department from [facility] for concern for decreased/no ostomy output for the past 4 days and a decline in mental status from her baseline with poor oral intake. Patient is a poor historian herself and at this time is nonverbal. ROS: See above HPI for pertinent positives & negatives. A total of 10 systems reviewed and were otherwise negative. VITALS:See Below PHYSICAL EXAMINATION: GENERAL: Awake, alert, fatigued-appearing, in no distress HENT: Normocephalic, atraumatic. Oropharynx with dry mucous membranes and otherwise unremarkable. EYES: Normal conjunctiva. Sclera non-icteric. NECK: Supple. No nuchal rigidity. FROM. No JVD. RESPIRATORY: Clear to auscultation. CARDIAC: Regular rate, normal rhythm. Extremities warm and well perfused. Pulses equal. ABDOMEN: Soft, non-distended. +NABS. No tenderness to palpation. No rebound or guarding. Left lower quadrant colostomy site appears clean dry and intact. Alla in place are clean dry and intact. RECTAL: Deferred. MUSCULOSKELETAL: Chest examination reveals no tenderness. The back is symmetrical on inspection without obvious abnormality. There is no CVA tenderness to palpation. No joint edema. LOWER EXTREMITIES: Calves are equal size bilaterally and non-tender. No edema. No discoloration. NEURO: No focal sensory or motor deficits noted. Nonverbal. SKIN: No rash or jaundice noted. Corky Campo MD Past Med/Surg History Medical History Anxiety Arteriosclerosis of coronary artery Benign essential hypertension Dementia Depression History of esophageal reflux Hyperlipidemia Insomnia Osteoporosis Vitamin D deficiency Surgical History History of colon resection (08/23/22) Exploratory Laparotomy, Reduction of sigmoid volvulus ,Sigmoid Colon Resection, End Colostomy, Repair of Umbilical Hernia(Not Applicable) - Lino Larson DO Social History Smoking Status: Never smoker Hx Alcohol Use: No Preferred Language: Urdu Communication Ability: Unable marital status: / Current Living Situation: Other Current Living Situation Comment: Assisted Living - [facility] current occupational status: retired Feels Safe at Home: Yes Childhood Exposure to Second-Hand Smoke: No Physical Activity Frequency: Daily Assistive Devices: None Allergies Allergies Allergy/AdvReac Type Severity Reaction Status Date / Time No Known Allergies Allergy Unverified 09/04/22 20:10 Home Meds Home Medications Medication Instructions Recorded Confirmed donepezil 10 mg tablet 10 mg PO DAILY 12/11/20 09/04/22 acetaminophen 325 mg tablet 650 mg PO Q6 PRN Fever Or Pain 08/23/22 09/04/22 doxepin 6 mg tablet 6 mg PO HS 08/23/22 09/04/22 levothyroxine 75 mcg tablet 75 mcg PO DAILY 08/23/22 09/04/22 melatonin 3 mg tablet 3 mg PO HS 08/23/22 09/04/22 memantine 10 mg tablet 10 mg PO Q12 08/23/22 09/04/22 [id number] 1 tab PO DAILY 08/23/22 09/04/22 tablet (Multivitamin 50 Plus tablet) nitroglycerin 0.4 mg sublingual 0.4 mg sublingual Q5M PRN Chest 08/23/22 09/04/22 tablet Pain potassium chloride 20 mEq 40 meq PO BID 08/23/22 09/04/22 tablet,extended release(part/cryst) protein supplement 1 ea PO DAILY 08/23/22 09/04/22 acetaminophen 325 mg tablet 650 mg PO QAM 09/04/22 09/04/22 ergocalciferol (vitamin D2) 1,250 50,000 units PO UD 09/04/22 09/04/22 mcg (50,000 unit) capsule menthol 0.44 %-zinc oxide 20.6 % 1 applic topical QS 09/04/22 09/04/22 topical ointment (Calmoseptine) Previous Rx's Medication Instructions Recorded calcium carbonate 600 mg-vitamin 1 cap PO BID #180 caps 08/02/19 D3 10 mcg (400 unit) capsule cetirizine 10 mg tablet 10 mg PO DAILY #90 tabs 04/03/19 metoprolol tartrate 25 mg tablet 25 mg PO BID 30 days #60 tabs 08/30/22 mirtazapine 15 mg tablet 15 mg PO HS 30 days #30 tabs 08/30/22 Results & Data (ED) Vital Signs Vital Signs - 24 hr 09/04/22 19:16 09/04/22 19:42 09/04/22 21:00 Temperature 37.5 C Temperature Source Oral Pulse Rate 71 85 Respiratory Rate 18 24 Respiratory Effort / Characteristics Non-Labored Respiratory Depth Normal Blood Pressure 126/58 L 147/64 H Blood Pressure Mean 80 91 Pulse Oximetry 94 95 Oxygen Delivery Method Room Air Room Air Sepsis Recent Fever Within 48 Hours No Sepsis New/Unexplained Change in Mental Status N/A Sepsis Action Taken by Nursing No Action Required 09/04/22 21:30 09/04/22 22:01 09/04/22 22:30 Temperature Temperature Source Pulse Rate 83 79 90 Respiratory Rate 22 26 H 27 H Respiratory Effort / Characteristics Respiratory Depth Blood Pressure 126/71 146/82 H 141/68 H Blood Pressure Mean 89 103 92 Pulse Oximetry 93 92 93 Oxygen Delivery Method Sepsis Recent Fever Within 48 Hours Sepsis New/Unexplained Change in Mental Status Sepsis Action Taken by Nursing Laboratory Data Attestation: I reviewed the patient's lab results. Result diagrams: 09/04/22 19:39 09/04/22 19:39 Lab Results 09/04/22 09/04/22 09/04/22 Range/Units 19:39 19:39 19:39 WBC 12.55 H (4.8-10.8) K/ul RBC 4.07 (3.93-5.22) M/uL Hgb 11.4 L (12.0-16.0) g/dl POC Hgb (12.0-16.0) g/dl Hct 35.9 (34.1-44.9) % POC Hct (37-47) % MCV 88.2 (80.0-100.0) fL MCH 28.0 (25.0-34.0) pg MCHC 31.8 L (32.0-36.0) g/dL RDW Std Deviation 49.1 H (36.4-46.3) fL RDW Coeff of Jeremi 15.3 H (11.5-14.5) % Plt Count 400 (130-400) K/uL MPV 10.4 (9.4-12.3) fL Immature Gran % (Auto) 1.0 % Neut % (Auto) 77.1 % Lymph % (Auto) 9.6 % Nicholas % (Auto) 10.9 % Eos % (Auto) 1.0 % Baso % (Auto) 0.4 % Neut # (Auto) 9.68 H (1.4-6.5) K/uL Lymph # (Auto) 1.20 (1.2-3.4) K/uL Nicholas # (Auto) 1.37 H (0.24-0.82) K/uL Eos # (Auto) 0.13 (0-0.50) K/uL Baso # (Auto) 0.05 (0-0.2) K/uL Immature Gran # (Auto) 0.12 H (0.00-0.02) K/uL POC Sodium (135-144) mmol/L Sodium 142 (136-145) mmol/L POC Potassium (3.3-5.0) mmol/L Potassium 5.0 (3.5-5.1) mmol/L POC Chloride (101-112) mmol/L Chloride 108 H (98-107) mmol/L Carbon Dioxide 27 (21-32) mmol/L POC Total CO2 (24-31) mmol/L Anion Gap 7 (3-11) POC Anion Gap (16-25) mmol/L POC BUN (7-18) mg/dl BUN 20 (6-23) mg/dl Creatinine 0.66 (0.6-1.2) mg/dl POC Creatinine (0.6-1.3) mg/dl Est Cr Clr Drug Dosing 47.2 ml/min Est GFR ( Amer) 96.7 ml/min Est GFR (Non-Af Amer) 83.4 ml/min BUN/Creatinine Ratio 30.3 H (10-20) Glucose 131 H (70-99(Fasting)) mg/dl POC Glucose (other) (70-99) mg/dl Calcium 9.7 (8.5-10.1) mg/dl POC Ioniz Calcium Ivonne (1.12-1.32) mmol/l Phosphorus 3.0 (2.5-4.9) mg/dl Magnesium 2.1 (1.7-2.4) mg/dl Total Bilirubin 0.5 (0.2-1.0) mg/dl AST 21 (13-39) U/L ALT 24 (7-52) U/L Alkaline Phosphatase 70 (34-104) U/L Total Protein 6.6 (6.0-8.3) gm/dl Albumin 3.1 L (3.4-5.0) gm/dl Globulin 3.5 (2.5-4.0) gm/dl Albumin/Globulin Ratio 0.9 (0.9-2) Lipase 36 (11-82) U/L Procalcitonin (0-0.5) ng/ml TSH 7.093 H (0.300-4.500) uIu/ml Free T4 1.47 (0.61-1.60) ng/dl Urine Color Urine Appearance (Clear) Urine pH (4.5-7.5) Ur Specific Landis (1.000-1.030) Urine Protein (Negative) Urine Glucose (UA) (Negative) Urine Ketones (Negative) Urine Blood (Negative) Urine Nitrite (Negative) Urine Bilirubin (Negative) Urine Urobilinogen (Negative) Ur Leukocyte Esterase (Negative) SARS-CoV-2, RNA, NAAT (NEGATIVE) 09/04/22 09/04/22 09/04/22 Range/Units 19:39 19:40 19:42 WBC (4.8-10.8) K/ul RBC (3.93-5.22) M/uL Hgb (12.0-16.0) g/dl POC Hgb 11.9 L (12.0-16.0) g/dl Hct (34.1-44.9) % POC Hct 35 L (37-47) % MCV (80.0-100.0) fL MCH (25.0-34.0) pg MCHC (32.0-36.0) g/dL RDW Std Deviation (36.4-46.3) fL RDW Coeff of Jeremi (11.5-14.5) % Plt Count (130-400) K/uL MPV (9.4-12.3) fL Immature Gran % (Auto) % Neut % (Auto) % Lymph % (Auto) % Nicholas % (Auto) % Eos % (Auto) % Baso % (Auto) % Neut # (Auto) (1.4-6.5) K/uL Lymph # (Auto) (1.2-3.4) K/uL Nicholas # (Auto) (0.24-0.82) K/uL Eos # (Auto) (0-0.50) K/uL Baso # (Auto) (0-0.2) K/uL Immature Gran # (Auto) (0.00-0.02) K/uL POC Sodium 142 (135-144) mmol/L Sodium (136-145) mmol/L POC Potassium 4.9 (3.3-5.0) mmol/L Potassium (3.5-5.1) mmol/L POC Chloride 107 (101-112) mmol/L Chloride (98-107) mmol/L Carbon Dioxide (21-32) mmol/L POC Total CO2 26 (24-31) mmol/L Anion Gap (3-11) POC Anion Gap 14.0 L (16-25) mmol/L POC BUN 20 H (7-18) mg/dl BUN (6-23) mg/dl Creatinine (0.6-1.2) mg/dl POC Creatinine 0.7 (0.6-1.3) mg/dl Est Cr Clr Drug Dosing ml/min Est GFR ( Amer) ml/min Est GFR (Non-Af Amer) ml/min BUN/Creatinine Ratio (10-20) Glucose (70-99(Fasting)) mg/dl POC Glucose (other) 132 H (70-99) mg/dl Calcium (8.5-10.1) mg/dl POC Ioniz Calcium Ivonne 1.25 (1.12-1.32) mmol/l Phosphorus (2.5-4.9) mg/dl Magnesium (1.7-2.4) mg/dl Total Bilirubin (0.2-1.0) mg/dl AST (13-39) U/L ALT (7-52) U/L Alkaline Phosphatase (34-104) U/L Total Protein (6.0-8.3) gm/dl Albumin (3.4-5.0) gm/dl Globulin (2.5-4.0) gm/dl Albumin/Globulin Ratio (0.9-2) Lipase (11-82) U/L Procalcitonin 0.11 (0-0.5) ng/ml TSH (0.300-4.500) uIu/ml Free T4 (0.61-1.60) ng/dl Urine Color Urine Appearance (Clear) Urine pH (4.5-7.5) Ur Specific Landis (1.000-1.030) Urine Protein (Negative) Urine Glucose (UA) (Negative) Urine Ketones (Negative) Urine Blood (Negative) Urine Nitrite (Negative) Urine Bilirubin (Negative) Urine Urobilinogen (Negative) Ur Leukocyte Esterase (Negative) SARS-CoV-2, RNA, NAAT NEGATIVE (NEGATIVE) 09/04/22 Range/Units 22:30 WBC (4.8-10.8) K/ul RBC (3.93-5.22) M/uL Hgb (12.0-16.0) g/dl POC Hgb (12.0-16.0) g/dl Hct (34.1-44.9) % POC Hct (37-47) % MCV (80.0-100.0) fL MCH (25.0-34.0) pg MCHC (32.0-36.0) g/dL RDW Std Deviation (36.4-46.3) fL RDW Coeff of Jeremi (11.5-14.5) % Plt Count (130-400) K/uL MPV (9.4-12.3) fL Immature Gran % (Auto) % Neut % (Auto) % Lymph % (Auto) % Nicholas % (Auto) % Eos % (Auto) % Baso % (Auto) % Neut # (Auto) (1.4-6.5) K/uL Lymph # (Auto) (1.2-3.4) K/uL Nicholas # (Auto) (0.24-0.82) K/uL Eos # (Auto) (0-0.50) K/uL Baso # (Auto) (0-0.2) K/uL Immature Gran # (Auto) (0.00-0.02) K/uL POC Sodium (135-144) mmol/L Sodium (136-145) mmol/L POC Potassium (3.3-5.0) mmol/L Potassium (3.5-5.1) mmol/L POC Chloride (101-112) mmol/L Chloride (98-107) mmol/L Carbon Dioxide (21-32) mmol/L POC Total CO2 (24-31) mmol/L Anion Gap (3-11) POC Anion Gap (16-25) mmol/L POC BUN (7-18) mg/dl BUN (6-23) mg/dl Creatinine (0.6-1.2) mg/dl POC Creatinine (0.6-1.3) mg/dl Est Cr Clr Drug Dosing ml/min Est GFR ( Amer) ml/min Est GFR (Non-Af Amer) ml/min BUN/Creatinine Ratio (10-20) Glucose (70-99(Fasting)) mg/dl POC Glucose (other) (70-99) mg/dl Calcium (8.5-10.1) mg/dl POC Ioniz Calcium Ivonne (1.12-1.32) mmol/l Phosphorus (2.5-4.9) mg/dl Magnesium (1.7-2.4) mg/dl Total Bilirubin (0.2-1.0) mg/dl AST (13-39) U/L ALT (7-52) U/L Alkaline Phosphatase (34-104) U/L Total Protein (6.0-8.3) gm/dl Albumin (3.4-5.0) gm/dl Globulin (2.5-4.0) gm/dl Albumin/Globulin Ratio (0.9-2) Lipase (11-82) U/L Procalcitonin (0-0.5) ng/ml TSH (0.300-4.500) uIu/ml Free T4 (0.61-1.60) ng/dl Urine Color Yellow Urine Appearance Clear (Clear) Urine pH 5.5 (4.5-7.5) Ur Specific Landis > 1.045 H (1.000-1.030) Urine Protein Negative (Negative) Urine Glucose (UA) Negative (Negative) Urine Ketones Negative (Negative) Urine Blood Negative (Negative) Urine Nitrite Negative (Negative) Urine Bilirubin Negative (Negative) Urine Urobilinogen Negative (Negative) Ur Leukocyte Esterase Negative (Negative) SARS-CoV-2, RNA, NAAT (NEGATIVE) Administered Medications Piperacillin Sod/Tazobactam (Sod 4.5 gm/ Dextrose) 120 mls @ 30 mls/hr IV Q8H ELIAS; Protocol Stop: 09/15/22 00:55 Last Admin: 09/05/22 05:53 Dose: 30 mls/hr Documented By: JERRY Sodium Chloride (Nss 1000ml) 1,000 mls @ 80 mls/hr IV .[id number] ELIAS Stop: 10/05/22 00:55 Last Admin: 09/05/22 01:07 Dose: 80 mls/hr Documented By: JERRY Discontinued Medications Glycerin (Glycerin Adult 12 Supp/Box Supp) 1 supp PA NOW ONE Stop: 09/04/22 21:42 Last Admin: 09/04/22 22:20 Dose: 1 supp Documented By: CATALINO Sodium Chloride (Nss 1000ml) 1,000 mls @ 999 mls/hr IV .[id number] ONE Stop: 09/04/22 20:35 Last Infusion: 09/04/22 20:56 Dose: 0 mls/hr Documented By: Admin: 09/04/22 19:55 Dose: 999 mls/hr Documented By: CATALINO Piperacillin Sod/Tazobactam (Sod 4.5 gm/ Dextrose) 120 mls @ 200 mls/hr IV NOW ONE; Protocol Stop: 09/04/22 22:15 Last Infusion: 09/05/22 00:02 Dose: 0 mls/hr Documented By: Admin: 09/04/22 23:17 Dose: 200 mls/hr Documented By: CATALINO Ioversol (Optiray 350 100ml) 89 ml IV ONCE ONE Stop: 09/04/22 20:07 Last Admin: 09/04/22 20:11 Dose: 89 ml Documented By: JUDIT Imaging Data Radiologist's Impression: Abdomen/Pelvis CT 09/04/22 19:33 CT OF THE ABDOMEN AND PELVIS WITH CONTRAST CLINICAL HISTORY: decreased ostomy output, change in mental status COMPARISON STUDY: CT of the abdomen and pelvis August 23, 2022. TECHNIQUE: Following IV administration of 89 mL of Optiray, axial images of the abdomen and pelvis were obtained from the lung bases to the proximal femurs. Images were reviewed in the axial, sagittal, and coronal planes. IV contrast was administered without complication. Automated exposure control was utilized for the study. A dose lowering technique was utilized adhering to the principles of ALARA. FINDINGS: No pneumatosis, free air or portal venous gas is present. Liver, spleen, adrenal glands, left kidney and pancreas are unremarkable. There is a 2.4 cm right renal cyst. There is no hydronephrosis. No biliary or pancreatic ductal dilatation is present. This exam is mildly compromised by artifact. Interval laparotomy, sigmoid resection with formation of end descending colostomy and rectal stump is noted. The rectal stump is significantly distended and predominantly gas-filled and contains a mild amount of stool. There is adjacent stranding and fluid. There is no extraluminal gas. No fluid collection is identified. There is mild irregularity of the superior aspect of the rectal stump. No small or large bowel dilatation is present. Stents of aortoiliac atherosclerotic plaque is present. A mild compression fracture involving the superior endplate with 30% loss of vertebral body height is new since CT of August 23, 2022. There is no significant retropulsion. No additional acute fractures are identified. Old sacral fracture is unchanged. IMPRESSION: 1. Status post sigmoid resection with formation of an end descending colostomy and rectal stump. No bowel obstruction. Significantly distended rectal stump with protrusion and irregularity of the superior aspect of the rectal stump along the surgical staple line. Mild adjacent stranding and fluid. No free air. Given distention and adjacent stranding, a developing rectal stump contained leak cannot be excluded. Close clinical follow-up is recommended. If persistent symptoms, short-term follow-up CT is recommended. 2. Mild L1 compression fracture which is new since CT of August 23, 2022. ACT 112: Negative or not required by law. Electronically signed by: Bhavik Combs M.D. 09/04/2022 8:[address] 09/04/22 19:33 CT OF THE HEAD WITHOUT CONTRAST CLINICAL HISTORY: Altered mental status. COMPARISON STUDY: Head CT December 11, 2020. CT DOSE: 796.38 mGy.cm TECHNIQUE: Helical axial images of the head were obtained without IV contrast. Automated exposure control was utilized for the study. A dose lowering technique was utilized adhering to the principles of ALARA. FINDINGS: No acute intracranial hemorrhage, midline shift or mass effect is present. Atrophy is again noted. The appearance of the brain is unchanged. White matter hypodensity suggests small vessel disease. The ventricular system is unremarkable. The basal cisterns are patent. No extra-axial collections are present. There are no findings to suggest acute dural sinus thrombosis or acute territorial infarct. IMPRESSION: No acute intracranial findings. No change in appearance of the brain. ACT 112: Negative or not required by law. Electronically signed by: Bhavik Combs M.D. 09/04/2022 8:16 PM Discharge Plan Visit Data Chief Complaint: GI Assessment Stated Complaint: No Output from Colostomy ED Provider: Corky Campo Discharge Problem: Change in mental status, Dementia, S/P colostomy, Sigmoid volvulus Patient Disposition: Admitted As Inpatient Discharge Instructions Interventions: ED Discharge Assessment Last Done: 09/05/22 00:14
[2022-09-04 19:47] LABS: Basophils # (auto) 0.05 K/uL (0-0.2); Basophils % (auto) 0.4 %; Eosinophils # (auto) 0.13 K/uL (0-0.50); Hematocrit (blood only) 35.9 % (34.1-44.9); Hemoglobin 11.4 g/dl (12.0-16.0); Immature Granulocytes # (auto) 0.12 K/uL (0.00-0.02); Lymphocytes % (auto) 9.6 %; Mean Corpuscular Hgb Conc 31.8 g/dL (32.0-36.0); Mean Corpuscular Volume 88.2 fL (80.0-100.0); Mean Platelet Volume 10.4 fL (9.4-12.3); Monocytes # (auto) 1.37 K/uL (0.24-0.82); Monocytes % (auto) 10.9 %; Neutrophils # (auto) 9.68 K/uL (1.4-6.5); Neutrophils % (auto) 77.1 %; Platelet Count 400 K/uL (130-400); RDW Coefficient of Variation 15.3 % (11.5-14.5); RDW Standard Deviation 49.1 fL (36.4-46.3); Red Blood Count 4.07 M/uL (3.93-5.22); White Blood Count 12.55 K/ul (4.8-10.8)
[2022-09-04 19:55] LABS: iSTAT Creatinine 0.7 mg/dl (0.6-1.3); iSTAT Hemoglobin 11.9 g/dl (12.0-16.0); iSTAT Ionized Calcium 1.25 mmol/l (1.12-1.32); iSTAT Potassium 4.9 mmol/L (3.3-5.0)
[2022-09-04] MEDS ORDERED: OPTIRAY 350 100ml IV ONE (20:06)
[2022-09-04 20:13] LABS: Albumin Globulin Ratio 0.9 (0.9-2); Albumin Level 3.1 gm/dl (3.4-5.0); BUN Creatinine Ratio 30.3 (10-20); Bilirubin,Total 0.5 mg/dl (0.2-1.0); Calcium 9.7 mg/dl (8.5-10.1); Creatinine Clr Calc Pharmacy 47.2 ml/min; Est GFR (African American) 96.7 ml/min; Est GFR (Non-African American) 83.4 ml/min; Globulin 3.5 gm/dl (2.5-4.0); Magnesium 2.1 mg/dl (1.7-2.4); Total Protein 6.6 gm/dl (6.0-8.3)
--- NOTE | 2022-09-04 20:20 | CT Scan Report ---
CT OF THE HEAD WITHOUT CONTRAST CLINICAL HISTORY: Altered mental status. COMPARISON STUDY: Head CT December 11, 2020. CT DOSE: 796.38 mGy.cm TECHNIQUE: Helical axial images of the head were obtained without IV contrast. Automated exposure con trol was utilized for the study. A dose lowering technique was utilized adhering to the principles o f ALARA. FINDINGS: No acute intracranial hemorrhage, midline shift or mass effect is present. Atrophy is again noted. The appearance of the brain is unchanged. White matter hypodensity suggests small vessel dise ase. The ventricular system is unremarkable. The basal cisterns are patent. No extra-axial collection s are present. There are no findings to suggest acute dural sinus thrombosis or acute territorial inf arct. IMPRESSION: No acute intracranial findings. No change in appearance of the brain. ACT 112: Negative or not required by law. Electronically signed by: Bhavik Combs M.D. 09/04/2022 8:16 PM
[2022-09-04 20:29] LABS: Thyroid Stimulating Hormone 7.093 uIu/ml (0.300-4.500)
--- NOTE | 2022-09-04 20:44 | CT Scan Report ---
CT OF THE ABDOMEN AND PELVIS WITH CONTRAST CLINICAL HISTORY: decreased ostomy output, change in mental status COMPARISON STUDY: CT of the abdomen and pelvis August 23, 2022. TECHNIQUE: Following IV administration of 89 mL of Optiray, axial images of the abdomen and pelvis we re obtained from the lung bases to the proximal femurs. Images were reviewed in the axial, sagittal, and coronal planes. IV contrast was administered without complication. Automated exposure control wa s utilized for the study. A dose lowering technique was utilized adhering to the principles of ALARA . FINDINGS: No pneumatosis, free air or portal venous gas is present. Liver, spleen, adrenal glands, le ft kidney and pancreas are unremarkable. There is a 2.4 cm right renal cyst. There is no hydronephros is. No biliary or pancreatic ductal dilatation is present. This exam is mildly compromised by artifac t. Interval laparotomy, sigmoid resection with formation of end descending colostomy and rectal stump is noted. The rectal stump is significantly distended and predominantly gas-filled and contains a mi ld amount of stool. There is adjacent stranding and fluid. There is no extraluminal gas. No fluid col lection is identified. There is mild irregularity of the superior aspect of the rectal stump. No smal l or large bowel dilatation is present. Stents of aortoiliac atherosclerotic plaque is present. A mil d compression fracture involving the superior endplate with 30% loss of vertebral body height is new since CT of August 23, 2022. There is no significant retropulsion. No additional acute fractures ar e identified. Old sacral fracture is unchanged. IMPRESSION: 1. Status post sigmoid resection with formation of an end descending colostomy and rectal stump. No b owel obstruction. Significantly distended rectal stump with protrusion and irregularity of the superi or aspect of the rectal stump along the surgical staple line. Mild adjacent stranding and fluid. No f ree air. Given distention and adjacent stranding, a developing rectal stump contained leak cannot be excluded. Close clinical follow-up is recommended. If persistent symptoms, short-term follow-up CT is recommended. 2. Mild L1 compression fracture which is new since CT of August 23, 2022. ACT 112: Negative or not required by law. Electronically signed by: Bhavik Combs M.D. 09/04/2022 8:41 PM
[2022-09-04 21:02] LABS: T4 Free Thyroxine 1.47 ng/dl (0.61-1.60)
--- NOTE | 2022-09-04 21:25 | Surgery Consultation ---
Date of Consultation September 04, 2022 Assessment & Plan (1) Sigmoid volvulus: At the present time the patient does not appear to have a surgical abdomen. I discussed the case with my attending physician Dr. Clay and he is reviewed the CAT scan. We feel it may be in the best interest of this patient to be admitted on the hospitalist service for evaluation of her altered mental status. As previously mentioned the patient does not appear to have an acute surgical abdomen at this time. Concerning the patient's distended rectum and inability to completely exclude a contained rectal stump leak and they be beneficial to provide the patient with some rectal stimulation be with Dulcolax suppositories to see if any residual air in the patient's rectal vault can be eliminated. In addition the patient may potentially have a pouchitis of the rectal stump and therefore initiation of antibiotic should be considered. We will continue to follow along while the patient is hospitalized but again at the present time she does not appear to have an acute abdomen. Supervising Physician Co-Signing Physician Notes Patient discussed with ROSEMARIE Martínez, labs and imaging reviewed, agree with above. 82 y/o female s/p Perera's procedure for volvulus, presented to ED with AMS per SNF. AFVSS, abd benign, wbc 12. CT with dilated rectal stump and possible contained leak. area is diverted, abd benign. May benefit from rectal stimulation such as suppositories. History of Present Illness Reason for Consultation: Possible rectal stump perforation History of Present Illness This is an 82-year-old female who is known to [facility] physician group general surgery. Patient was admitted to [facility] on 08/23/2022. At that time the patient was noted to have a sigmoid volvulus and patient underwent a reduction of a sigmoid volvulus with a sigmoid colon resection and end colostomy. The patient was hospitalized until 08/31/2022 at which time [facility]. It is noteworthy to mention that during patient's postoperative course she did develop paroxysmal atrial fibrillation for which she was seen by broadcast meteorologist. This was treated with beta-blockers as well as Lovenox. At time of discharge the patient was maintained on beta-blockers but anticoagulation was discontinued due to her advanced age and dementia. The patient presented to the emergency department at [facility] as the staff at her retirement noted the patient had decreased ostomy output for approximately 4 days as well as a decline in mental status. In addition the patient was noted to have poor oral intake. The patient has underlying dementia and therefore could not provide any history whatsoever at the time of my interview. Since arrival to the emergency department the patient did have labs and imaging which I independently reviewed. A CT scan of the head showed no acute intracranial process. A CT scan of the abdomen pelvis showed the patient had findings consistent with sigmoid colon resection with an end descending col ostomy formation and a rectal stump. There is no evidence of bowel obstruction. She was noted to have significant distention of the rectal stump with some protrusion and irregularity at the superior aspect of the rectal stump near the surgical staple line with some mild adjacent stranding and fluid. No free air was noted. The interpreting radiologist noted that a developing rectal stump contained leak could not be excluded. Labs included a CBC her white blood cell count was 12.5. Hemoglobin and hematocrit are 11.4 and and 35.9. Platelet count was within normal range. Chemistry profile showed sodium and potassium are both normal. BUN and creatinine were noted to both be normal. There is no elevation of patient's LFTs or lipase. A COVID test was noted to be negative. At the time of my interview the patient was resting comfortably in bed and she did not appear to be in any significant distress. Allergies Allergy/AdvReac Type Severity Reaction Status Date / Time No Known Allergies Allergy Unverified 09/04/22 20:10 Home Medications Medication Instructions Recorded Confirmed Type calcium carbonate 600 mg-vitamin 1 cap PO BID #180 caps 04/03/19 09/04/22 Rx D3 10 mcg (400 unit) capsule cetirizine 10 mg tablet 10 mg PO DAILY #90 tabs 04/03/19 09/04/22 Rx donepezil 10 mg tablet 10 mg PO DAILY 12/11/20 09/04/22 History acetaminophen 325 mg tablet 650 mg PO Q6 PRN Fever Or Pain 08/23/22 09/04/22 History doxepin 6 mg tablet 6 mg PO HS 08/23/22 09/04/22 History levothyroxine 75 mcg tablet 75 mcg PO DAILY 08/23/22 09/04/22 History melatonin 3 mg tablet 3 mg PO HS 08/23/22 09/04/22 History memantine 10 mg tablet 10 mg PO Q12 08/23/22 09/04/22 History fxeobjsngisn-otsikuay-vnazes 1 tab PO DAILY 08/23/22 09/04/22 History tablet (Multivitamin 50 Plus tablet) nitroglycerin 0.4 mg sublingual 0.4 mg sublingual Q5M PRN Chest 08/23/22 09/04/22 History tablet Pain potassium chloride 20 mEq 40 meq PO BID 08/23/22 09/04/22 History tablet,extended release(part/cryst) protein supplement 1 ea PO DAILY 08/23/22 09/04/22 History metoprolol tartrate 25 mg tablet 25 mg PO BID 30 days #60 tabs 08/30/22 09/04/22 Rx mirtazapine 15 mg tablet 15 mg PO HS 30 days #30 tabs 08/30/22 09/04/22 Rx acetaminophen 325 mg tablet 650 mg PO QAM 09/04/22 09/04/22 History ergocalciferol (vitamin D2) 1,250 50,000 units PO UD 09/04/22 09/04/22 History mcg (50,000 unit) capsule menthol 0.44 %-zinc oxide 20.6 % 1 applic topical QS 09/04/22 09/04/22 History topical ointment (Calmoseptine) Patient History Medical History Anxiety Arteriosclerosis of coronary artery Benign essential hypertension Dementia Depression History of esophageal reflux Hyperlipidemia Insomnia Osteoporosis Vitamin D deficiency Surgical History History of colon resection (08/23/22) Exploratory Laparotomy, Reduction of sigmoid volvulus ,Sigmoid Colon Resection, End Colostomy, Repair of Umbilical Hernia(Not Applicable) - Lino Larson, Social History Smoking Status: Never smoker Hx Alcohol Use: No Preferred Language: Eritrean Communication Ability: Unable marital status: / Current Living Situation: Other Current Living Situation Comment: Assisted Living - [facility] current occupational status: retired Feels Safe at Home: Yes Childhood Exposure to Second-Hand Smoke: No Physical Activity Frequency: Daily Assistive Devices: None Review of Systems Review of Systems: Unobtainable due to cognitive status Physical Exam Constitutional: no acute distress Eyes: no scleral abnormality ENMT: Ears: no external ear abnormality Neck: trachea midline Respiratory: normal respiratory effort; no respiratory distress and no labored breathing Cardiovascular: Rate/Rhythm: regular rate and regular rhythm Gastrointestinal (Abdomen): Abdomen is soft and nondistended. It is nonrigid. Palpation did not appear to elicit a painful response and did not appear to be any rebound tenderness or guarding. Patient had a colostomy noted which appeared pink and viable. There is minimal material noted in the collection bag. A rectal exam was performed with the presence of a nurse rn resource nurse. Patient had normal sphincter tone and there was no stool noted in the rectal vault. Also at the time of rectal exam a large gush of air at the time of rectal exam was not obtained. Musculoskeletal: No calf tenderness Skin: no rashes Neurologic: moves all extremities Psychiatric: Patient is alert only to person Results & Data ([facility]) Vital Signs (Past 12 Hours) Vital Signs Temp Pulse Resp BP Pulse Ox O2 Del Method 09/04/22 19:42 Room Air 09/04/22 19:16 37.5 C 71 18 126/58 L 94 Room Air PG Care Time/CCT Total # of Minutes Spent Total Time Spent with Patient: Total time spent is greater than 50% in coordination of care (as documented) at patient's floor/unit and/or counseling patient: Coding Level of Care Code None Diagnoses Sigmoid volvulus K56.2
[2022-09-04] MEDS ORDERED: PIPERACILLIN/TAZOBACTAM 4.5 GM in DEXTROSE 5% 100 ML IV ONE (21:40)
[2022-09-04] MEDS ORDERED: GLYCERIN ADULT 12 SUPP/BOX SUPP PR ONE (21:41)
[2022-09-04 22:49] LABS: Appearance Urine Clear (Clear); Bilirubin Urine Negative (Negative); Blood Urine Negative (Negative); Color Urine Yellow; Glucose Urine UA Negative (Negative); Ketones Urine Negative (Negative); Leukocyte Esterase Urine Negative (Negative); Nitrite Urine Negative (Negative); Protein Urine Negative (Negative); Specific Gravity Urine > 1.045 (1.000-1.030); Urobilinogen Urine Negative (Negative); pH Urine 5.5 (4.5-7.5)
--- NOTE | 2022-09-04 22:56 | History & Physical Report ---
Date of Service September 04, 2022 Assessment & Plan (1) Paroxysmal A-fib: (2) Hypothyroidism: (3) Bowel obstruction: (4) Sigmoid volvulus: (5) Hyperlipidemia: (6) Dementia: (7) Benign essential hypertension: Plan Decreased ostomy output/possible rectal stump leak- NPO Continue Zosyn begun in the ED Follow serial laboratories Zofran 4 mg IV every 6 hours as needed Famotidine 20 mg IV every 12 hours NSS at 80 mils per hour General surgery will follow Dementia- [facility], there were concern regarding altered mentation, which is difficult to assess in the ED here Will hold donepezil, doxepin, melatonin, mirtazapine, memantine for now and reassess after course of antibiotics as noted above Anticipate return to [facility] Hypertension- Blood pressure acceptable at this time Hold metoprolol tartrate for now Hypothyroidism- Hold levothyroxine for now while n.p.o. History of Present Illness Chief Complaint: The patient was brought to the emergency department due to concerns regarding change in mental status and no ostomy output Primary Care Provider: [facility] The patient is an 82-year-old female status post surgery while on the surgical service for bowel obstruction and sigmoid volvulus with colostomy formation on 08/31/2022. She was sent to [facility] senior care facility post [facility] admission. She was referred to the emergency department today due to no ostomy output for the past 4 days and a decline in mental status from her baseline with poor oral intake. The patient herself is a poor historian, and is not able to contribute to her HPI or review of systems. CT scan of abdomen pelvis showed concerns regarding possible rectal stump leak. The patient was assessed by general surgery while in ED, who felt that there was not a need for surgical intervention, and deferred admission to the hospitalist service for empiric IV antibiotics Allergies Allergy/AdvReac Type Severity Reaction Status Date / Time No Known Allergies Allergy Unverified 09/04/22 20:10 Home Medications Medication Instructions Recorded Confirmed Type calcium carbonate 600 mg-vitamin 1 cap PO BID #180 caps 04/03/19 09/04/22 Rx D3 10 mcg (400 unit) capsule cetirizine 10 mg tablet 10 mg PO DAILY #90 tabs 04/03/19 09/04/22 Rx donepezil 10 mg tablet 10 mg PO DAILY 12/11/20 09/04/22 History acetaminophen 325 mg tablet 650 mg PO Q6 PRN Fever Or Pain 08/23/22 09/04/22 History doxepin 6 mg tablet 6 mg PO HS 08/23/22 09/04/22 History levothyroxine 75 mcg tablet 75 mcg PO DAILY 08/23/22 09/04/22 History melatonin 3 mg tablet 3 mg PO HS 08/23/22 09/04/22 History memantine 10 mg tablet 10 mg PO Q12 08/23/22 09/04/22 History kyhxxwmmtxwl-iqduubjm-byuyjm 1 tab PO DAILY 08/23/22 09/04/22 History tablet (Multivitamin 50 Plus tablet) nitroglycerin 0.4 mg sublingual 0.4 mg sublingual Q5M PRN Chest 08/23/22 09/04/22 History tablet Pain potassium chloride 20 mEq 40 meq PO BID 08/23/22 09/04/22 History tablet,extended release(part/cryst) protein supplement 1 ea PO DAILY 08/23/22 09/04/22 History metoprolol tartrate 25 mg tablet 25 mg PO BID 30 days #60 tabs 08/30/22 09/04/22 Rx mirtazapine 15 mg tablet 15 mg PO HS 30 days #30 tabs 08/30/22 09/04/22 Rx acetaminophen 325 mg tablet 650 mg PO QAM 09/04/22 09/04/22 History ergocalciferol (vitamin D2) 1,250 50,000 units PO UD 09/04/22 09/04/22 History mcg (50,000 unit) capsule menthol 0.44 %-zinc oxide 20.6 % 1 applic topical QS 09/04/22 09/04/22 History topical ointment (Calmoseptine) Past Med/Surg History Medical History Anxiety Arteriosclerosis of coronary artery Benign essential hypertension Dementia Depression History of esophageal reflux Hyperlipidemia Insomnia Osteoporosis Vitamin D deficiency Surgical History History of colon resection (08/23/22) Exploratory Laparotomy, Reduction of sigmoid volvulus ,Sigmoid Colon Resection, End Colostomy, Repair of Umbilical Hernia(Not Applicable) - Lino Larson, DO Social History Smoking Status: Never smoker Hx Alcohol Use: No Preferred Language: Hungarian Communication Ability: Unable marital status: / Current Living Situation: Other Current Living Situation Comment: Assisted Living - [facility] current occupational status: retired Feels Safe at Home: Yes Childhood Exposure to Second-Hand Smoke: No Physical Activity Frequency: Daily Assistive Devices: None Review of Systems Review of Systems: Unobtainable due to mental health condition Physical Exam Physical Exam: The patient is awake, confused and disoriented with underlying dementia, normocephalic and atraumatic, lying in bed and in no acute distress. HEENT--PERRL, EOMI, mucous membranes and oropharynx dry. Neck--supple. No JVD. No bruits. Thyroid normal, trachea midline, no adenopathy. Heart--normal S1 and S2. No murmurs, rubs or gallops. Lungs--clear bilaterally, no respiratory distress, no accessory muscle use. Abdomen--normal bowel sounds and soft. Ostomy without output. [place] in place clean, dry and intact. Extremities--no cyanosis or clubbing. No edema. There are good distal pulses b/l. Dermatologic--normal skin turgor, normal color, no rash. Neurologic--cranial nerves II through XII grossly intact. Rheumatologic--limited exam Psychiatric--confused with dementia Results & Data Results & Data ([facility]) Vital Signs (Past 12 Hours) Vital Signs Temp Pulse Resp BP Pulse Ox O2 Del Method 09/04/22 21:30 83 22 126/71 93 09/04/22 21:00 85 24 147/64 H 95 09/04/22 19:42 Room Air 09/04/22 19:16 37.5 C 71 18 126/58 L 94 Room Air Laboratory Results Laboratory Results WBC 12.55 K/ul (4.8-10.8) H 09/04/22 19:39 RBC 4.07 M/uL (3.93-5.22) 09/04/22 19:39 Hgb 11.4 g/dl (12.0-16.0) L 09/04/22 19:39 POC Hgb 11.9 g/dl (12.0-16.0) L 09/04/22 19:42 Hct 35.9 % (34.1-44.9) 09/04/22 19:39 POC Hct 35 % (37-47) L 09/04/22 19:42 MCV 88.2 fL (80.0-100.0) 09/04/22 19:39 MCH 28.0 pg (25.0-34.0) 09/04/22 19: MCHC 31.8 g/dL (32.0-36.0) L 09/04/22 19:39 RDW Std Deviation 49.1 fL (36.4-46.3) H 09/04/22 19:39 RDW Coeff of Jeremi 15.3 % (11.5-14.5) H 09/04/22 19:39 Plt Count 400 K/uL (130-400) 09/04/22 19:39 MPV 10.4 fL (9.4-12.3) 09/04/22 19:39 Immature Gran % (Auto) 1.0 % 09/04/22 19:39 Neut % (Auto) 77.1 % 09/04/22 19:39 Lymph % (Auto) 9.6 % 09/04/22 19:39 Traill % (Auto) 10.9 % 09/04/22 19:39 Eos % (Auto) 1.0 % 09/04/22 19:39 Baso % (Auto) 0.4 % 09/04/22 19:39 Neut # (Auto) 9.68 K/uL (1.4-6.5) H 09/04/22 19:39 Lymph # (Auto) 1.20 K/uL (1.2-3.4) 09/04/22 19:39 Traill # (Auto) 1.37 K/uL (0.24-0.82) H 09/04/22 19:39 Eos # (Auto) 0.13 K/uL (0-0.50) 09/04/22 19:39 Baso # (Auto) 0.05 K/uL (0-0.2) 09/04/22 19:39 Immature Gran # (Auto) 0.12 K/uL (0.00-0.02) H 09/04/22 19:39 POC Sodium 142 mmol/L (135-144) 09/04/22 19:42 Sodium 142 mmol/L (136-145) 09/04/22 19:39 POC Potassium 4.9 mmol/L (3.3-5.0) 09/04/22 19:42 Potassium 5.0 mmol/L (3.5-5.1) 09/04/22 19:39 POC Chloride 107 mmol/L (101-112) 09/04/22 19:42 Chloride 108 mmol/L (98-107) H 09/04/22 19:39 Carbon Dioxide 27 mmol/L (21-32) 09/04/22 19:39 POC Total CO2 26 mmol/L (24-31) 09/04/22 19:42 Anion Gap 7 (3-11) 09/04/22 19:39 POC Anion Gap 14.0 mmol/L (16-25) L 09/04/22 19:42 POC BUN 20 mg/dl (7-18) H 09/04/22 19:42 BUN 20 mg/dl (6-23) 09/04/22 19:39 Creatinine 0.66 mg/dl (0.6-1.2) 09/04/22 19:39 POC Creatinine 0.7 mg/dl (0.6-1.3) 09/04/22 19:42 Est Cr Clr Drug Dosing 47.2 ml/min 09/04/22 19:39 Est GFR ( Amer) 96.7 ml/min 09/04/22 19:39 Est GFR (Non-Af Amer) 83.4 ml/min 09/04/22 19:39 BUN/Creatinine Ratio 30.3 (10-20) H 09/04/22 19:39 Glucose 131 mg/dl (70-99(Fasting)) H 09/04/22 19:39 POC Glucose (other) 132 mg/dl (70-99) H 09/04/22 19:42 Lactate 1.2 mmol/L (0.4-2.0) 09/04/22 23:01 Calcium 9.7 mg/dl (8.5-10.1) 09/04/22 19:39 POC Ioniz Calcium Ivonne 1.25 mmol/l (1.12-1.32) 09/04/22 19:42 Phosphorus 3.0 mg/dl (2.5-4.9) 09/04/22 19:39 Magnesium 2.1 mg/dl (1.7-2.4) 09/04/22 19:39 Total Bilirubin 0.5 mg/dl (0.2-1.0) 09/04/22 19:39 AST 21 U/L (13-39) 09/04/22 19:39 ALT 24 U/L (7-52) 09/04/22 19:39 Alkaline Phosphatase 70 U/L (34-104) 09/04/22 19:39 Total Protein 6.6 gm/dl (6.0-8.3) 09/04/22 19:39 Albumin 3.1 gm/dl (3.4-5.0) L 09/04/22 19:39 Globulin 3.5 gm/dl (2.5-4.0) 09/04/22 19:39 Albumin/Globulin Ratio 0.9 (0.9-2) 09/04/22 19:39 Lipase 36 U/L (11-82) 09/04/22 19:39 Procalcitonin 0.11 ng/ml (0-0.5) 09/04/22 19:39 TSH 7.093 uIu/ml (0.300-4.500) H 09/04/22 19:39 Free T4 1.47 ng/dl (0.61-1.60) 09/04/22 19:39 Urine Color Yellow 09/04/22 22:30 Urine Appearance Clear (Clear) 09/04/22 22:30 Urine pH 5.5 (4.5-7.5) 09/04/22 22:30 Ur Specific [place] > 1.045 (1.000-1.030) H 09/04/22 22:30 Urine Protein Negative (Negative) 09/04/22 22:30 Urine Glucose (UA) Negative (Negative) 09/04/22 22:30 Urine Ketones Negative (Negative) 09/04/22 22:30 Urine Blood Negative (Negative) 09/04/22 22:30 Urine Nitrite Negative (Negative) 09/04/22 22:30 Urine Bilirubin Negative (Negative) 09/04/22 22:30 Urine Urobilinogen Negative (Negative) 09/04/22 22:30 Ur Leukocyte Esterase Negative (Negative) 09/04/22 22:30 SARS-CoV-2, RNA, NAAT NEGATIVE (NEGATIVE) 09/04/22 19:40 Impressions Abdomen/Pelvis CT 09/04/22 19:33 CT OF THE ABDOMEN AND PELVIS WITH CONTRAST CLINICAL HISTORY: decreased ostomy output, change in mental status COMPARISON STUDY: CT of the abdomen and pelvis August 23, 2022. TECHNIQUE: Following IV administration of 89 mL of Optiray, axial images of the abdomen and pelvis were obtained from the lung bases to the proximal femurs. Images were reviewed in the axial, sagittal, and coronal planes. IV contrast was administered without complication. Automated exposure control was utilized for the study. A dose lowering technique was utilized adhering to the principles of ALARA. FINDINGS: No pneumatosis, free air or portal venous gas is present. Liver, spleen, adrenal glands, left kidney and pancreas are unremarkable. There is a 2.4 cm right renal cyst. There is no hydronephrosis. No biliary or pancreatic ductal dilatation is present. This exam is mildly compromised by artifact. Interval laparotomy, sigmoid resection with formation of end descending colostomy and rectal stump is noted. The rectal stump is significantly distended and predominantly gas-filled and contains a mild amount of stool. There is adjacent stranding and fluid. There is no extraluminal gas. No fluid collection is identified. There is mild irregularity of the superior aspect of the rectal stump. No small or large bowel dilatation is present. Stents of aortoiliac atherosclerotic plaque is present. A mild compression fracture involving the superior endplate with 30% loss of vertebral body height is new since CT of August 23, 2022. There is no significant retropulsion. No additional acute fractures are identified. Old sacral fracture is unchanged. IMPRESSION: 1. Status post sigmoid resection with formation of an end descending colostomy and rectal stump. No bowel obstruction. Significantly distended rectal stump with protrusion and irregularity of the superior aspect of the rectal stump along the surgical staple line. Mild adjacent stranding and fluid. No free air. Given distention and adjacent stranding, a developing rectal stump contained leak cannot be excluded. Close clinical follow-up is recommended. If persistent symptoms, short-term follow-up CT is recommended. 2. Mild L1 compression fracture which is new since CT of August 23, 2022. ACT 112: Negative or not required by law. Electronically signed by: Bhavik Combs M.D. 09/04/2022 8:[address] 09/04/22 19:33 CT OF THE HEAD WITHOUT CONTRAST CLINICAL HISTORY: Altered mental status. COMPARISON STUDY: Head CT December 11, 2020. CT DOSE: 796.38 mGy.cm TECHNIQUE: Helical axial images of the head were obtained without IV contrast. Automated exposure control was utilized for the study. A dose lowering technique was utilized adhering to the principles of ALARA. FINDINGS: No acute intracranial hemorrhage, midline shift or mass effect is present. Atrophy is again noted. The appearance of the brain is unchanged. White matter hypodensity suggests small vessel disease. The ventricular system is un remarkable. The basal cisterns are patent. No extra-axial collections are present. There are no findings to suggest acute dural sinus thrombosis or acute territorial infarct. IMPRESSION: No acute intracranial findings. No change in appearance of the brain. ACT 112: Negative or not required by law. Electronically signed by: Bhavik Combs M.D. 09/04/2022 8:16 PM Code Status & VTE Plan Code Status DNR/DNI VTE Prophylaxis Plan VTE Prophylaxis will be ordered: Yes (1) Dementia Dementia behavioral disturbance: without behavioral disturbance Dementia type: unspecified type Qualified Code(s): F03.90 - Unspecified dementia without behavioral disturbance
[2022-09-05] MEDS ORDERED: ONDANSETRON INJ 2 MG/ML 2 ML VIAL IV PRN (00:56)
[2022-09-05] MEDS ORDERED: ACETAMINOPHEN 1000 MG/100 ML IV IV PRN (00:56)
[2022-09-05] MEDS: SODIUM CHLORIDE 0.9% 1000ML 1,000 ML IV SCH ×2 (01:07→13:25)
--- NOTE | 2022-09-05 04:41 | Billing Data ---
Date of Service September 05, 2022 Coding Level of Care Code 21068 INT INP/OBS CARE
[2022-09-05] MEDS: PIPERACILLIN/TAZOBACTAM 4.5 GM in DEXTROSE 5% 100 ML IV SCH ×3 (05:53→21:42)
--- NOTE | 2022-09-05 08:18 | Surgery Progress Note ---
Date of Service September 05, 2022 Assessment & Plan (1) S/P colostomy: Plan: pt had extremely dilated rectal stump at time of operative intervention. I do not believe CT findings are new. doubt perforated rectal stump and even if true she is diverted. 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 ok to restart diet no surgical intervention/testing/plans Admission and Anticipated Discharge Date Admission Date: September 04, 2022 Subjective pt seen. sleeping. unable to converse at baseline secondary to dementia. Physical Exam Physical Exam: abd: soft. mild distension. midline wound looks good. ostomy viable...minimal output. Results & Data ([facility]) Vital Signs (Past 12 Hours) Vital Signs Temp Pulse Resp BP BP Pulse Ox O2 Del Method 09/05/22 07:02 36.6 C 16 136/84 90 Room Air 09/05/22 00:56 36.7 C 16 160/68 H 92 Room Air 09/04/22 23:00 88 26 H 118/87 90 09/04/22 22:30 90 27 H 141/68 H 93 09/04/22 22:01 79 26 H 146/82 H 92 09/04/22 21:30 83 22 126/71 93 09/04/22 21:00 85 24 147/64 H 95 PG Care Time/CCT Total # of Minutes Spent Total Time Spent with Patient: Total time spent is greater than 50% in coordination of care (as documented) at patient's floor/unit and/or counseling patient: Coding Level of Care Code None Diagnoses S/P colostomy Z93.3
[2022-09-05] MEDS: FAMOTIDINE 20 MG in SYRINGE 3 ML IV SCH ×2 (08:43→21:42)
--- NOTE | 2022-09-05 08:53 | XRay Report ---
XR chest 1V portable HISTORY: 82 years-old Female ams . Acutely altered mental status COMPARISON: Chest radiograph 08/27/2022 TECHNIQUE: AP view of the chest FINDINGS: Calcified plaque of the thoracic aorta. Cardiomediastinal and hilar silhouettes are unchanged. Mild c hronic interstitial coarsening. There is no pneumothorax, pleural effusion or lobar airspace consolid ation. Bones of the chest appear grossly intact. IMPRESSION: No acute process. ACT 112: Negative or not required by law. The above report was generated using voice recognition software. It may contain grammatical, syntax o r spelling errors. Electronically signed by: Dhaval Kearns M.D. 09/05/2022 8:51 AM
[2022-09-05 09:27] LABS: Basophils # (auto) 0.05 K/uL (0-0.2); Basophils % (auto) 0.4 %; Eosinophils # (auto) 0.06 K/uL (0-0.50); Eosinophils % (auto) 0.5 %; Hemoglobin 10.4 g/dl (12.0-16.0); Immature Granulocytes # (auto) 0.11 K/uL (0.00-0.02); Immature Granulocytes % (auto) 0.9 %; Lymphocytes % (auto) 7.5 %; Mean Corpuscular Hemoglobin 27.7 pg (25.0-34.0); Mean Corpuscular Hgb Conc 32.5 g/dL (32.0-36.0); Mean Corpuscular Volume 85.3 fL (80.0-100.0); Mean Platelet Volume 10.3 fL (9.4-12.3); Monocytes # (auto) 1.21 K/uL (0.24-0.82); Monocytes % (auto) 10.1 %; Neutrophils # (auto) 9.61 K/uL (1.4-6.5); Neutrophils % (auto) 80.6 %; Platelet Count 333 K/uL (130-400); RDW Coefficient of Variation 15.3 % (11.5-14.5); RDW Standard Deviation 47.5 fL (36.4-46.3); Red Blood Count 3.75 M/uL (3.93-5.22); White Blood Count 11.94 K/ul (4.8-10.8)
--- NOTE | 2022-09-05 09:51 | Hospitalist Progress Note ---
Date of Service September 05, 2022 Assessment & Plan (1) Sigmoid volvulus: Plan: Attending: Dr. Gonzales Impression: This is an 82-year-old female with severe dementia that was previous admitted 08/25/2022 through 08/31/2022 for bowel obstruction versus sigmoid ileus. She had partial resection with colostomy. Stump was examined at that time and patient was cleared for discharge to [facility] by surgery. She was noted to have decrease in mental status over the last 4 days with decrease in oral intake and question of decrease in output of ostomy. She was transferred for further evaluation. Patient is afebrile. She has no concerning labs. She is severely demented and I am unable to ascertain as to whether or not she has any change in mental status as I have not met her before. She does not appear in distress. She is unable to provide ROS. Discussed with Dr. Larson who saw the patient earlier today. No surgical intervention or revision needed Does not appear to have infection No specific pain on examination No no free air or concern on CT abdomen other than a distended stump. Continue to monitor and provide supportive care (2) Dementia: Plan: This is chronic. Daughter was in the visit later today and nursing reports that patient appears to be at baseline Daughter requesting family meeting to discuss care plan We will plan on discussing this with her tomorrow (3) S/P colostomy: Plan: As above Consult ostomy nurse for management of colostomy (4) Paroxysmal A-fib: Plan: Continue metoprolol tartrate Patient currently rate controlled in the 80s Would avoid anticoagulation due to dementia (5) Benign essential hypertension: Plan: Hemodynamically stable with a systolic pressure in the 130s Continue home medications (6) Hyperlipidemia: Plan: Patient is not on home statin Will avoid at this time. Plan Continue with IV fluids at this time. We will consider resuming medications tomorrow if patient remains stable Anticipate transfer back to [facility] Family meeting tomorrow to discuss ongoing care plan Admission and Anticipated Discharge Date Admission Date: September 04, 2022 Supervising Physician Co-Signing Physician Notes Attending Attestation - Chart reviewed, care plan d/w ROSEMARIE Acuna. I agree w/ the torres components of his documentation. Ye Gonzales MD Subjective Attending: Dr. Gonzales This is an 82-year-old female with severe dementia who was admitted late yesterday evening from [facility] with concerns for altered mental status and decreased output from her ostomy. She was recently admitted to [facility] 08/25/2022 and underwent surgery for colonic resection and ostomy placement for sigmoid volvulus with Dr. Larson. She was discharged from [facility] on 08/31/2022. ER notes indicate that she had 4 days of decline in mental status from her baseline in addition to decreased oral intake. She was seen by surgery this morning and at this time, no surgical intervention is indicated. CT scan of the head is negative for acute intracranial findings. Chronic atrophy is again noted as well as white matter hypodensity suggesting small vessel disease. White count is slightly elevated at 12.55 on admission and is currently 11.94 this morning. Chemistries are pending this morning but yesterday patient had balanced electrolytes. Albumin was 3.1. TSH was elevated 7.093. Urinalysis was negative. Chest x-ray did not show any consolidation or infiltrate. Blood cultures x2 are pending. Vital signs are stable. Afebrile. No hypoxia. Patient seen and examined at bedside. She is extremely demented and unable to provide ROS or history. She has no obvious pain. She will not let me examine her abdomen. However, no pain with palpation of abdomen. I did discuss patient with Dr. Larson who indicates that she is stable and unchanged from examination on day of discharge previously. Review of Systems Review of Systems: Unobtainable due to cognitive status Physical Exam Physical Exam: GENERAL : No acute distress EYES: No icterus, gaze conjugate NOSE: No evidence of epistaxis MOUTH: No lesions or candidiasis NECK: Supple LUNGS: CTA B/L, no wheezes, rales or rhonchi HEART: Regular, rate controlled ABDOMEN: Soft, NT, ND, BS Present EXTREMITIES: No LE edema, pedal pulses intact NEURO: A&OX3 Results & Data Results & Data ([facility]) Vital Signs (Past 12 Hours) Vital Signs Temp Pulse Resp BP BP Pulse Ox O2 Del Method 09/05/22 07:02 36.6 C 16 136/84 90 Room Air 09/05/22 00:56 36.7 C 16 160/68 H 92 Room Air 09/04/22 23:00 88 26 H 118/87 90 09/04/22 22:30 90 27 H 141/68 H 93 09/04/22 22:01 79 26 H 146/82 H 92 Critical Care Results & Data Vital Signs (Past 12 Hours) Vital Signs Temp Pulse Resp BP BP Pulse Ox O2 Del Method 09/05/22 07:02 36.6 C 16 136/84 90 Room Air 09/05/22 00:56 36.7 C 16 160/68 H 92 Room Air 09/04/22 23:00 88 26 H 118/87 90 09/04/22 22:30 90 27 H 141/68 H 93 09/04/22 22:01 79 26 H 146/82 H 92 Lab & Micro Results (Past 24 Hours) RBC 4.30 M/uL (3.93-5.22) 09/08/22 WBC 8.44 K/ul (4.8-10.8) 09/08/22 Hgb 11.8 g/dl (12.0-16.0) L 09/08/22 Hct 35.3 % (34.1-44.9) 09/08/22 MCV 82.1 fL (80.0-100.0) 09/08/22 MCH 27.4 pg (25.0-34.0) 09/08/22 MCHC 33.4 g/dL (32.0-36.0) 09/08/22 RDW Standard Deviation 42.5 fL (36.4-46.3) 09/08/22 RDW Coefficient of Variation 14.3 % (11.5-14.5) 09/08/22 Plt Count 387 K/uL (130-400) 09/08/22 MPV 9.9 fL (9.4-12.3) 09/08/22 Neutrophils (%) (Auto) 75.4 % 09/08/22 Lymphocytes (%) (Auto) 9.6 % 09/08/22 Monocytes # (Auto) 1.13 K/uL (0.24-0.82) H 09/08/22 Eosinophils # (Auto) 0.04 K/uL (0-0.50) 09/08/22 Immature Granulocyte % (Auto) 0.6 % 09/08/22 Neutrophils # (Auto) 6.37 K/uL (1.4-6.5) 09/08/22 Lymphocytes # (Auto) 0.81 K/uL (1.2-3.4) L 09/08/22 Monocytes # (Auto) 1.13 K/uL (0.24-0.82) H 09/08/22 Eosinophils # (Auto) 0.04 K/uL (0-0.50) 09/08/22 Basophils # (Auto) 0.04 K/uL (0-0.2) 09/08/22 Immature Granulocyte # (Auto) 0.05 K/uL (0.00-0.02) H 09/08 Na 140 mmol/L (136-145) 09/08/22 K 3.3 mmol/L (3.5-5.1) L 09/08/22 Cl 102 mmol/L (98-107) 09/08/22 CO2 26 mmol/L (21-32) 09/08/22 Anion Gap 12 (3-11) H 09/08/22 BUN 4 mg/dl (6-23) L 09/08/22 Creatinine 0.51 mg/dl (0.6-1.2) L 09/08/22 Estimated GFR ( Amer) 105.3 ml/min 09/08/22 Estimated GFR (Non-Af Amer) 90.8 ml/min 09/08/22 BUN/Creatinine Ratio 7.8 (10-20) L 09/08/22 Glu 113 mg/dl (70-99(Fasting)) H 09/08/22 Ca 8.7 mg/dl (8.5-10.1) 09/08/22 Calcium Level 8.7 mg/dl (8.5-10.1) 09/08/22 10:26 Diagnostic Findings (Past 24 Hours) Abdomen/Pelvis CT 09/04/22 19:33 CT OF THE ABDOMEN AND PELVIS WITH CONTRAST CLINICAL HISTORY: decreased ostomy output, change in mental status COMPARISON STUDY: CT of the abdomen and pelvis August 23, 2022. TECHNIQUE: Following IV administration of 89 mL of Optiray, axial images of the abdomen and pelvis were obtained from the lung bases to the proximal femurs. Images were reviewed in the axial, sagittal, and coronal planes. IV contrast was administered without complication. Automated exposure control was utilized for the study. A dose lowering technique was utilized adhering to the principles of ALARA. FINDINGS: No pneumatosis, free air or portal venous gas is present. Liver, spleen, adrenal glands, left kidney and pancreas are unremarkable. There is a 2.4 cm right renal cyst. There is no hydronephrosis. No biliary or pancreatic ductal dilatation is present. This exam is mildly compromised by artifact. Interval laparotomy, sigmoid resection with formation of end descending colostomy and rectal stump is noted. The rectal stump is significantly distended and predominantly gas-filled and contains a mild amount of stool. There is adjacent stranding and fluid. There is no extraluminal gas. No fluid collection is identified. There is mild irregularity of the superior aspect of the rectal stump. No small or large bowel dilatation is present. Stents of aortoiliac atherosclerotic plaque is present. A mild compression fracture involving the superior endplate with 30% loss of vertebral body height is new since CT of August 23, 2022. There is no significant retropulsion. No additional acute fractures are identified. Old sacral fracture is unchanged. IMPRESSION: 1. Status post sigmoid resection with formation of an end descending colostomy and rectal stump. No bowel obstruction. Significantly distended rectal stump with protrusion and irregularity of the superior aspect of the rectal stump along the surgical staple line. Mild adjacent stranding and fluid. No free air. Given distention and adjacent stranding, a developing rectal stump contained leak cannot be excluded. Close clinical follow-up is recommended. If persistent symptoms, short-term follow-up CT is recommended. 2. Mild L1 compression fracture which is new since CT of August 23, 2022. ACT 112: Negative or not required by law. Electronically signed by: Bhavik Combs M.D. 09/04/2022 8:[address] 09/04/22 19:33 CT OF THE HEAD WITHOUT CONTRAST CLINICAL HISTORY: Altered mental status. COMPARISON STUDY: Head CT December 11, 2020. CT DOSE: 796.38 mGy.cm TECHNIQUE: Helical axial images of the head were obtained without IV contrast. Automated exposure control was utilized for the study. A dose lowering technique was utilized adhering to the principles of ALARA. FINDINGS: No acute intracranial hemorrhage, midline shift or mass effect is present. Atrophy is again noted. The appearance of the brain is unchanged. White matter hypodensity suggests small vessel disease. The ventricular system is unremarkable. The basal cisterns are patent. No extra-axial collections are present. There are no findings to suggest acute dural sinus thrombosis or acute territorial infarct. IMPRESSION: No acute intracranial findings. No change in appearance of the brain. ACT 112: Negative or not required by law. Electronically signed by: Bhavik Combs M.D. 09/04/2022 8:16 PM Chest X-Ray 09/04/22 21:40 XR chest 1V portable HISTORY: 82 years-old Female ams . Acutely altered mental status COMPARISON: Chest radiograph 08/27/2022 TECHNIQUE: AP view of the chest FINDINGS: Calcified plaque of the thoracic aorta. Cardiomediastinal and hilar silhouettes are unchanged. Mild chronic interstitial coarsening. There is no pneumothorax, p leural effusion or lobar airspace consolidation. Bones of the chest appear grossly intact. IMPRESSION: No acute process. ACT 112: Negative or not required by law. The above report was generated using voice recognition software. It may contain grammatical, syntax or spelling errors. Electronically signed by: Dhaval Kearns M.D. 09/05/2022 8:51 AM I & O Totals 24 Hours 09/04/22 09/05/22 09/06/22 06:59 06:59 06:59 Intake Total 1120 / 1120 Balance 1120 / 1120 Cumulative 09/04/22 19:04 thru 09/05/22 00:02 Intake Total 1120 Balance 1120 RT Ventilator Mngmt (Last Documented) Ventilator Ordered Settings Respiratory Rate 16 09/05/22 07:02 Ventilator - PT Measurements Respiratory Rate 16 PG Care Time/CCT Total # of Minutes Spent Total Time Spent with Patient: Total time spent is greater than 50% in coordination of care (as documented) at patient's floor/unit and/or counseling patient: Coding Level of Care Code 38453 SUB INP/OBS CARE 2/35MIN Diagnoses Sigmoid volvulus K56.2 Dementia F03.90 S/P colostomy Z93.3 Paroxysmal A-fib I48.0 Benign essential hypertension I10 Hyperlipidemia E78.5
[2022-09-05 09:52] LABS: Albumin Globulin Ratio 0.9 (0.9-2); Albumin Level 2.7 gm/dl (3.4-5.0); BUN Creatinine Ratio 23.4 (10-20); Bilirubin,Total 0.5 mg/dl (0.2-1.0); Calcium 8.5 mg/dl (8.5-10.1); Creatinine Clr Calc Pharmacy 48.7 ml/min; Est GFR (African American) 97.7 ml/min; Est GFR (Non-African American) 84.3 ml/min; Globulin 2.9 gm/dl (2.5-4.0); Magnesium 1.8 mg/dl (1.7-2.4); Total Protein 5.6 gm/dl (6.0-8.3)
[2022-09-06] MEDS: SODIUM CHLORIDE 0.9% 1000ML 1,000 ML IV SCH ×2 (01:00→13:22)
[2022-09-06] MEDS: PIPERACILLIN/TAZOBACTAM 4.5 GM in DEXTROSE 5% 100 ML IV SCH ×3 (05:03→21:39)
--- NOTE | 2022-09-06 08:03 | Surgery Progress Note ---
Date of Service September 06, 2022 Assessment & Plan (1) S/P colostomy: Plan: patient resting in bed labs this AM are pending. vitals are stable no complaints of pain or signs of pain with palpation to abdomen ostomy viable with small amount of stool in bag continue diet as tolerates no further surgical plans Admission and Anticipated Discharge Date Admission Date: September 04, 2022 Subjective unable to obtain subjective history due to dementia. does not answer questions appropriately Physical Exam Physical Exam: awake, confused Gastrointestinal (Abdomen): Inspection/Auscultation: + abdomen distended (mild) Percussion/Palpation: abdomen soft; abdomen nontender ostomy viable with minimal stool in bag Results & Data ([facility]) Vital Signs (Past 12 Hours) Vital Signs Temp Pulse Resp BP Pulse Ox O2 Del Method 09/06/22 03:53 Room Air 09/05/22 23:43 36.9 C 84 18 159/78 H 94 Room Air PG Care Time/CCT Total # of Minutes Spent Total Time Spent with Patient: Total time spent is greater than 50% in coordination of care (as documented) at patient's floor/unit and/or counseling patient: Coding Level of Care Code None Diagnoses S/P colostomy Z93.3
[2022-09-06] MEDS: FAMOTIDINE 20 MG in SYRINGE 3 ML IV SCH ×2 (08:51→21:39)
[2022-09-06 09:37] LABS: Basophils # (auto) 0.05 K/uL (0-0.2); Basophils % (auto) 0.5 %; Eosinophils # (auto) 0.06 K/uL (0-0.50); Eosinophils % (auto) 0.6 %; Hematocrit (blood only) 34.9 % (34.1-44.9); Hemoglobin 11.4 g/dl (12.0-16.0); Immature Granulocytes # (auto) 0.09 K/uL (0.00-0.02); Immature Granulocytes % (auto) 0.8 %; Lymphocytes # (auto) 0.82 K/uL (1.2-3.4); Lymphocytes % (auto) 7.7 %; Mean Corpuscular Hemoglobin 27.7 pg (25.0-34.0); Mean Corpuscular Hgb Conc 32.7 g/dL (32.0-36.0); Mean Corpuscular Volume 84.9 fL (80.0-100.0); Mean Platelet Volume 10.1 fL (9.4-12.3); Monocytes # (auto) 1.33 K/uL (0.24-0.82); Monocytes % (auto) 12.6 %; Neutrophils # (auto) 8.24 K/uL (1.4-6.5); Neutrophils % (auto) 77.8 %; Platelet Count 337 K/uL (130-400); RDW Coefficient of Variation 14.7 % (11.5-14.5); RDW Standard Deviation 45.4 fL (36.4-46.3); Red Blood Count 4.11 M/uL (3.93-5.22); White Blood Count 10.59 K/ul (4.8-10.8)
[2022-09-06 09:57] LABS: Albumin Globulin Ratio 0.8 (0.9-2); Albumin Level 2.9 gm/dl (3.4-5.0); BUN Creatinine Ratio 17.2 (10-20); Bilirubin,Total 0.6 mg/dl (0.2-1.0); Calcium 8.3 mg/dl (8.5-10.1); Creatinine Clr Calc Pharmacy 48.7 ml/min; Est GFR (African American) 97.7 ml/min; Est GFR (Non-African American) 84.3 ml/min; Globulin 3.5 gm/dl (2.5-4.0); Magnesium 1.8 mg/dl (1.7-2.4); Potassium 3.7 mmol/L (3.5-5.1); Total Protein 6.4 gm/dl (6.0-8.3)
--- NOTE | 2022-09-06 20:19 | Hospitalist Progress Note ---
Date of Service September 06, 2022 Assessment & Plan (1) Sigmoid volvulus: Plan: Attending: Dr. Gonzales Impression: This is an 82-year-old female with severe dementia that was previous admitted 08/25/2022 through 08/31/2022 for bowel obstruction versus sigmoid ileus. She had partial resection with colostomy. Stump was examined at that time and patient was cleared for discharge to [facility] by surgery. She was noted to have decrease in mental status over the last 4 days with decrease in oral intake and question of decrease in output of ostomy. She was transferred for further evaluation. Patient is afebrile. She has no concerning labs. She is severely demented and I am unable to ascertain as to whether or not she has any change in mental status as I have not met her before. She does not appear in distress. She is unable to provide ROS. Discussed with Dr. Larson No surgical intervention or revision needed Does not appear to have infection No specific pain on examination No no free air or concern on CT abdomen other than a distended stump. Continue to monitor and provide supportive care (2) Dementia: Plan: This is chronic. Daughter Karin reports that patient appears to be at baseline and seems to be slightly improved Agrees to return to [facility] for continued care (3) S/P colostomy: Plan: As above Consult ostomy nurse for management of colostomy (4) Paroxysmal A-fib: Plan: Continue metoprolol tartrate Patient currently rate controlled in the 80s Would avoid anticoagulation due to dementia (5) Benign essential hypertension: Plan: Hemodynamically stable Continue home medications (6) Hyperlipidemia: Plan: Patient is not on home statin Will avoid at this time. Plan Continue with IV fluids while inpatient for support. Anticipate transfer back to [facility] when approved by them Admission and Anticipated Discharge Date Admission Date: September 04, 2022 Supervising Physician Co-Signing Physician Notes Attending Attestation - Chart reviewed, care plan d/w ROSEMARIE Acuna. I agree w/ the torres components of his documentation. Ye Gonzales MD Subjective Attending: Dr. Gonzales unable to obtain subjective history due to dementia. does not answer questions appropriately Long discussion with daughter Karin. Patient to return to [facility]. Ultimate goal is not to return to the hospital. Family will discuss once they return to [facility] and Karin can talk to her brother Thomas Review of Systems Review of Systems: Unable to obtain secondary to dementia Physical Exam Physical Exam: GENERAL : No acute distress EYES: No icterus, gaze conjugate NOSE: No evidence of epistaxis MOUTH: No lesions or candidiasis NECK: Supple LUNGS: CTA B/L, no wheezes, rales or rhonchi HEART: Regular, rate controlled ABDOMEN: Soft, NT, ND, BS Present EXTREMITIES: No LE edema, pedal pulses intact NEURO: Severe dementia. Able to move all extremities spontaneously Results & Data Results & Data ([facility]) Vital Signs (Past 12 Hours) Vital Signs Temp Pulse Resp BP Pulse Ox O2 Del Method 09/06/22 16:34 37.3 C 88 18 143/71 H 94 Room Air Critical Care Results & Data Vital Signs (Past 12 Hours) Vital Signs Temp Pulse Resp BP Pulse Ox O2 Del Method 09/06/22 16:34 37.3 C 88 18 143/71 H 94 Room Air Lab & Micro Results (Past 24 Hours) RBC 4.30 M/uL (3.93-5.22) 09/08/22 WBC 8.44 K/ul (4.8-10.8) 09/08/22 Hgb 11.8 g/dl (12.0-16.0) L 09/08/22 Hct 35.3 % (34.1-44.9) 09/08/22 MCV 82.1 fL (80.0-100.0) 09/08/22 MCH 27.4 pg (25.0-34.0) 09/08/22 MCHC 33.4 g/dL (32.0-36.0) 09/08/22 RDW Standard Deviation 42.5 fL (36.4-46.3) 09/08/22 RDW Coefficient of Variation 14.3 % (11.5-14.5) 09/08/22 Plt Count 387 K/uL (130-400) 09/08/22 MPV 9.9 fL (9.4-12.3) 09/08/22 Neutrophils (%) (Auto) 75.4 % 09/08/22 Lymphocytes (%) (Auto) 9.6 % 09/08/22 Monocytes # (Auto) 1.13 K/uL (0.24-0.82) H 09/08/22 Eosinophils # (Auto) 0.04 K/uL (0-0.50) 09/08/22 Immature Granulocyte % (Auto) 0.6 % 09/08/22 Neutrophils # (Auto) 6.37 K/uL (1.4-6.5) 09/08/22 Lymphocytes # (Auto) 0.81 K/uL (1.2-3.4) L 09/08/22 Monocytes # (Auto) 1.13 K/uL (0.24-0.82) H 09/08/22 Eosinophils # (Auto) 0.04 K/uL (0-0.50) 09/08/22 Basophils # (Auto) 0.04 K/uL (0-0.2) 09/08/22 Immature Granulocyte # (Auto) 0.05 K/uL (0.00-0.02) H 09/08 Na 140 mmol/L (136-145) 09/08/22 K 3.3 mmol/L (3.5-5.1) L 09/08/22 Cl 102 mmol/L (98-107) 09/08/22 CO2 26 mmol/L (21-32) 09/08/22 Anion Gap 12 (3-11) H 09/08/22 BUN 4 mg/dl (6-23) L 09/08/22 Creatinine 0.51 mg/dl (0.6-1.2) L 09/08/22 Estimated GFR ( Amer) 105.3 ml/min 09/08/22 Estimated GFR (Non-Af Amer) 90.8 ml/min 09/08/22 BUN/Creatinine Ratio 7.8 (10-20) L 09/08/22 Glu 113 mg/dl (70-99(Fasting)) H 09/08/22 Ca 8.7 mg/dl (8.5-10.1) 09/08/22 Calcium Level 8.7 mg/dl (8.5-10.1) 09/08/22 10:26 Microbiology 01/03/23 23:01 Aerobic Blood Culture - Preliminary Blood No growth in Aerobic bottle after 24 hours. Anaerobic Blood Culture - Preliminary No growth in Anaerobic bottle after 24 hours. 09/04/22 19:54 Aerobic Blood Culture - Preliminary Blood No growth in Aerobic bottle after 24 hours. Anaerobic Blood Culture - Preliminary No growth in Anaerobic bottle after 24 hours. I & O Totals 24 Hours 09/05/22 09/06/22 09/07/22 06:59 06:59 06:59 Intake Total 1120 / 1120 2510.667 / 2510.667 1109.333 / 1109.333 Output Total 800 / 800 200 / 200 Balance 1120 / 1120 1710.667 / 1710.667 909.333 / 909.333 Cumulative 09/04/22 19:04 thru 09/06/22 13:22 Intake Total 4740.000 Output Total 1000 Balance 3740.000 RT Ventilator Mngmt (Last Documented) Ventilator Ordered Settings Respiratory Rate 18 09/06/22 16 :34 Ventilator - PT Measurements Respiratory Rate 18 PG Care Time/CCT Total # of Minutes Spent Total Time Spent with Patient: Total time spent is greater than 50% in coordination of care (as documented) at patient's floor/unit and/or counseling patient: Coding Level of Care Code 87423 SUB INP/OBS CARE 2/35MIN Diagnoses Sigmoid volvulus K56.2 Dementia F03.90 S/P colostomy Z93.3 Paroxysmal A-fib I48.0 Benign essential hypertension I10 Hyperlipidemia E78.5 Time Spent (min) 40 Comment 40 minutes face to face with daughter Karin
[2022-09-07] MEDS: SODIUM CHLORIDE 0.9% 1000ML 1,000 ML IV SCH ×2 (01:42→14:15)
[2022-09-07] MEDS: PIPERACILLIN/TAZOBACTAM 4.5 GM in DEXTROSE 5% 100 ML IV SCH ×3 (05:19→22:03)
[2022-09-07 07:12] LABS: Basophils # (auto) 0.05 K/uL (0-0.2); Basophils % (auto) 0.6 %; Eosinophils # (auto) 0.11 K/uL (0-0.50); Eosinophils % (auto) 1.3 %; Hematocrit (blood only) 31.2 % (34.1-44.9); Hemoglobin 10.6 g/dl (12.0-16.0); Immature Granulocytes # (auto) 0.05 K/uL (0.00-0.02); Immature Granulocytes % (auto) 0.6 %; Lymphocytes # (auto) 0.92 K/uL (1.2-3.4); Lymphocytes % (auto) 11.2 %; Mean Corpuscular Hemoglobin 28.6 pg (25.0-34.0); Mean Corpuscular Volume 84.1 fL (80.0-100.0); Neutrophils % (auto) 69.3 %; Platelet Count 323 K/uL (130-400); RDW Coefficient of Variation 14.3 % (11.5-14.5); RDW Standard Deviation 43.8 fL (36.4-46.3); Red Blood Count 3.71 M/uL (3.93-5.22); White Blood Count 8.23 K/ul (4.8-10.8)
[2022-09-07 07:49] LABS: Albumin Globulin Ratio 0.9 (0.9-2); Albumin Level 2.7 gm/dl (3.4-5.0); BUN Creatinine Ratio 11.1 (10-20); Bilirubin,Total 0.5 mg/dl (0.2-1.0); Calcium 7.7 mg/dl (8.5-10.1); Creatinine Clr Calc Pharmacy 49.5 ml/min; Est GFR (African American) 98.2 ml/min; Est GFR (Non-African American) 84.7 ml/min; Magnesium 1.8 mg/dl (1.7-2.4); Potassium 3.4 mmol/L (3.5-5.1); Total Protein 5.7 gm/dl (6.0-8.3)
[2022-09-07] MEDS: FAMOTIDINE 20 MG in SYRINGE 3 ML IV SCH ×2 (08:15→20:05)
--- NOTE | 2022-09-07 19:31 | Hospitalist Progress Note ---
Date of Service September 07, 2022 Assessment & Plan (1) Sigmoid volvulus: Plan: Attending: Dr. Gonzales Impression: This is an 82-year-old female with severe dementia that was previous admitted 08/25/2022 through 08/31/2022 for bowel obstruction versus sigmoid ileus. She had partial resection with colostomy. Stump was examined at that time and patient was cleared for discharge to [facility] by surgery. She was noted to have decrease in mental status over the last 4 days with decrease in oral intake and question of decrease in output of ostomy. She was transferred for further evaluation. Patient is afebrile. She has no concerning labs. Per patient's daughter, Karin Martins, patient appears to be at baseline. She does not appear in distress. She is unable to provide ROS. Discussed with Dr. Larson No surgical intervention or revision needed Does not appear to have infection No specific pain on examination No no free air or concern on CT abdomen other than a distended stump. Continue to monitor and provide supportive care (2) Dementia: Plan: This is chronic. Daughter Karin reports that patient appears to be at baseline and seems to be slightly improved Agrees to return to [facility] for continued care (3) S/P colostomy: Plan: As above Consult ostomy nurse for management of colostomy (4) Paroxysmal A-fib: Plan: Continue metoprolol tartrate Patient currently rate controlled in the 80s Would avoid anticoagulation due to dementia (5) Benign essential hypertension: Plan: Hemodynamically stable Continue home medications (6) Hyperlipidemia: Plan: Patient is not on home statin Will avoid at this time. Plan Continue with IV fluids while inpatient for support. Anticipate transfer back to [facility] when transportation is available. Patient needs to go by litter van as she is unable to safely sit in a wheelchair. Admission and Anticipated Discharge Date Admission Date: September 04, 2022 Supervising Physician Co-Signing Physician Notes Attending Attestation - Chart reviewed, care plan d/w ROSEMARIE Acuna. I agree w/ the torres components of his documentation. Ye Gonzales MD Subjective Attending: Dr. Gonzales unable to obtain subjective history due to dementia. does not answer questions appropriately No change in status. [facility]. Patient was to be transferred today but litter van was not available. Anticipate transfer tomorrow Review of Systems Review of Systems: Unable to obtain secondary to dementia Physical Exam Physical Exam: GENERAL : No acute distress EYES: No icterus, gaze conjugate NOSE: No evidence of epistaxis MOUTH: No lesions or candidiasis NECK: Supple LUNGS: CTA B/L, no wheezes, rales or rhonchi HEART: Regular, rate controlled ABDOMEN: Soft, NT, ND, BS Present EXTREMITIES: No LE edema, pedal pulses intact NEURO: Severe dementia. Able to move all extremities spontaneously Results & Data Results & Data ([facility]) Vital Signs (Past 12 Hours) Vital Signs Temp Pulse Resp BP Pulse Ox O2 Del Method 09/07/22 15:33 37.7 C H 84 16 144/65 H 92 Room Air Critical Care Results & Data Vital Signs (Past 12 Hours) Vital Signs Temp Pulse Resp BP Pulse Ox O2 Del Method 09/07/22 15:33 37.7 C H 84 16 144/65 H 92 Room Air Lab & Micro Results (Past 24 Hours) RBC 4.30 M/uL (3.93-5.22) 09/08/22 WBC 8.44 K/ul (4.8-10.8) 09/08/22 Hgb 11.8 g/dl (12.0-16.0) L 09/08/22 Hct 35.3 % (34.1-44.9) 09/08/22 MCV 82.1 fL (80.0-100.0) 09/08/22 MCH 27.4 pg (25.0-34.0) 09/08/22 MCHC 33.4 g/dL (32.0-36.0) 09/08/22 RDW Standard Deviation 42.5 fL (36.4-46.3) 09/08/22 RDW Coefficient of Variation 14.3 % (11.5-14.5) 09/08/22 Plt Count 387 K/uL (130-400) 09/08/22 MPV 9.9 fL (9.4-12.3) 09/08/22 Neutrophils (%) (Auto) 75.4 % 09/08/22 Lymphocytes (%) (Auto) 9.6 % 09/08/22 Monocytes # (Auto) 1.13 K/uL (0.24-0.82) H 09/08/22 Eosinophils # (Auto) 0.04 K/uL (0-0.50) 09/08/22 Immature Granulocyte % (Auto) 0.6 % 09/08/22 Neutrophils # (Auto) 6.37 K/uL (1.4-6.5) 09/08/22 Lymphocytes # (Auto) 0.81 K/uL (1.2-3.4) L 09/08/22 Monocytes # (Auto) 1.13 K/uL (0.24-0.82) H 09/08/22 Eosinophils # (Auto) 0.04 K/uL (0-0.50) 09/08/22 Basophils # (Auto) 0.04 K/uL (0-0.2) 09/08/22 Immature Granulocyte # (Auto) 0.05 K/uL (0.00-0.02) H 09/08 Na 140 mmol/L (136-145) 09/08/22 K 3.3 mmol/L (3.5-5.1) L 09/08/22 Cl 102 mmol/L (98-107) 09/08/22 CO2 26 mmol/L (21-32) 09/08/22 Anion Gap 12 (3-11) H 09/08/22 BUN 4 mg/dl (6-23) L 09/08/22 Creatinine 0.51 mg/dl (0.6-1.2) L 09/08/22 Estimated GFR ( Amer) 105.3 ml/min 09/08/22 Estimated GFR (Non-Af Amer) 90.8 ml/min 09/08/22 BUN/Creatinine Ratio 7.8 (10-20) L 09/08/22 Glu 113 mg/dl (70-99(Fasting)) H 09/08/22 Ca 8.7 mg/dl (8.5-10.1) 09/08/22 Calcium Level 8.7 mg/dl (8.5-10.1) 09/08/22 10:26 Microbiology 09/04/22 23:01 Aerobic Blood Culture - Preliminary Blood No growth in Aerobic bottle after 48 hours. Anaerobic Blood Culture - Preliminary No growth in Anaerobic bottle after 48 hours. 09/04/22 19:54 Aerobic Blood Culture - Preliminary Blood No growth in Aerobic bottle after 48 hours. Anaerobic Blood Culture - Preliminary No growth in Anaerobic bottle after 48 hours. I & O Totals 24 Hours 09/06/22 09/07/22 09/08/22 06:59 06:59 06:59 Intake Total 2510.667 / 2510.667 2334.666 / 2334.666 1120 / 1120 Output Total 800 / 800 602 / 602 525 / 525 Balance 1710.667 / 6169.753 9453.666 / 1732.666 595 / 595 Cumulative 09/04/22 19:04 thru 09/07/22 15:33 Intake Total 7085.333 Output Total 1927 Balance 5158.333 RT Ventilator Mngmt (Last Documented) Ventilator Ordered Settings Respiratory Rate 16 09/07/22 15:33 Ventilator - PT Measurements Respiratory Rate 16 PG Care Time/CCT Total # of Minutes Spent Total Time Spent with Patient: Total time spent is greater than 50% in coordination of care (as documented) at patient's floor/unit and/or counseling patient: Coding Level of Care Code 99078 SUB INP/OBS CARE 1/25MIN Diagnoses Sigmoid volvulus K56.2 Dementia F03.90 S/P colostomy Z93.3 Paroxysmal A-fib I48.0 Benign essential hypertension I10 Hyperlipidemia E78.5
[2022-09-08] MEDS: SODIUM CHLORIDE 0.9% 1000ML 1,000 ML IV SCH ×2 (04:53→10:34)
[2022-09-08] MEDS: PIPERACILLIN/TAZOBACTAM 4.5 GM in DEXTROSE 5% 100 ML IV SCH ×3 (07:05→21:32)
[2022-09-08] MEDS: FAMOTIDINE 20 MG in SYRINGE 3 ML IV SCH ×2 (09:36→20:22)
[2022-09-08 10:49] LABS: Basophils # (auto) 0.04 K/uL (0-0.2); Basophils % (auto) 0.5 %; Eosinophils # (auto) 0.04 K/uL (0-0.50); Eosinophils % (auto) 0.5 %; Hematocrit (blood only) 35.3 % (34.1-44.9); Hemoglobin 11.8 g/dl (12.0-16.0); Immature Granulocytes # (auto) 0.05 K/uL (0.00-0.02); Immature Granulocytes % (auto) 0.6 %; Lymphocytes # (auto) 0.81 K/uL (1.2-3.4); Lymphocytes % (auto) 9.6 %; Mean Corpuscular Hemoglobin 27.4 pg (25.0-34.0); Mean Corpuscular Hgb Conc 33.4 g/dL (32.0-36.0); Mean Corpuscular Volume 82.1 fL (80.0-100.0); Mean Platelet Volume 9.9 fL (9.4-12.3); Monocytes # (auto) 1.13 K/uL (0.24-0.82); Monocytes % (auto) 13.4 %; Neutrophils # (auto) 6.37 K/uL (1.4-6.5); Neutrophils % (auto) 75.4 %; Platelet Count 387 K/uL (130-400); RDW Coefficient of Variation 14.3 % (11.5-14.5); RDW Standard Deviation 42.5 fL (36.4-46.3); White Blood Count 8.44 K/ul (4.8-10.8)
[2022-09-08 11:21] LABS: BUN Creatinine Ratio 7.8 (10-20); C Reactive Protein 14.13 mg/dl (0-0.5); Calcium 8.7 mg/dl (8.5-10.1); Creatinine Clr Calc Pharmacy 61.1 ml/min; Est GFR (African American) 105.3 ml/min; Est GFR (Non-African American) 90.8 ml/min; Potassium 3.3 mmol/L (3.5-5.1)
--- NOTE | 2022-09-08 11:37 | Hospitalist Progress Note ---
Date of Service September 08, 2022 Assessment & Plan (1) Fever: Plan: low-grade fevers on 09/07 and again this am Tmax 37.9 etiology uncertain cxr today w/o pneumonia BioFire respiratory panel fully negative blood cx's neg to date recent u/a at time of admission fully normal CT a/p at admission with irregularity of the rectal stump from recent sigmoid colectomy but surgery saw multiple times and did not feel it was the source of any infectious process or that acutely there was no issue [id number] she had the low-grade fevers overnight despite IV zosyn procal today negative CRP noted to be >10 I spoke to the pt's son today extensively by phone informed him of the low-grade fevers that started 09/07 discussed current w/u and that a specific etiology has not been found for the fever explained that we could do additional investigation - CT chest to r/o PE, repeat CT a/p to look at rectal stump again, etc he stated that he and his sister have talked and they are in agreement that their mother should simply return to [facility] and if she worsens she is a llowed to be made comfortable son's biggest concern at time of admission was that his mother had a bowel obstruction and he was concerned that this would lead to pain/suffering; he was relieved that no obstruction was found in light of the extensive discussion as above will defer on additional w/u will simply allow patient to return to [facility] POLST should be completed will update medical research assistant of [facility] prior to her d/c (2) S/P colostomy: Plan: colostomy is functioning well there had been concern for the Perera's pouch/rectal stump on admission CT but gen surg saw in consult and felt there was no issue see below (3) Sigmoid volvulus: Plan: admission 08/23/2022 through 08/30/2022 for sigmoid volvulus s/p Exploratory Laparotomy, Reduction of sigmoid volvulus ,Sigmoid Colon Resection, End Colostomy, Repair of Umbilical Hernia by Dr Larson ostomy functioning well on this admission's CT a/p there was ? of rectal stump irregularities gen surg consulted - felt that stump was stable new onset low grade fevers - due to rectal stump irregularities?? again - discussed fevers and abnormal CT with son - we will not pursue additional w/u at this time she is failing to thrive with very, very poor appetite and ongoing weight loss (4) Dementia: Plan: advanced aricept on hold - would not resume - likely providing no benefit given how advanced her dementia is (5) Paroxysmal A-fib: Plan: Continue metoprolol tartrate Not on anticoagulation - risks outweigh benefits given advanced dementia, etc (6) Benign essential hypertension: Plan: Mildly elevated as she is off her metoprolol - can resume (7) Hyperlipidemia: Plan: Patient is not on home statin Will avoid at this time. (8) Severe protein-calorie malnutrition: Plan: near 10kg weight loss since her sigmoid volvulus surgery combination of advanced dementia, factors related to her complex surgery, ?underlying infectious process given the fevers, etc unlikely to have any meaningful improvement (9) Failure to thrive: Plan: severe 2nd to dementia Plan see #1 re: extensive discussion with pt's son by phone today plan - if transportation is available can d/c back to SNF on 09/09 ideally we complete a POLST upon transfer back remains DNR/DNI will contact SNF med director about plan of care complex care coordination today including ~55 minutes of time spent on all care activities Admission and Anticipated Discharge Date Admission Date: September 04, 2022 Subjective staff report periods of agitation she is taking little to no oral intake (sips of fluid only - nothing more) during the visit she was very agitated, telling me to go away and "get the hell out" she would say "don't touch me - leave me alone" very uncooperative during the exam because of her agitation from her dementia nursing staff present to hold her hand and provide comfort during my brief exam unable to provide any meaningful history she was able to tell me she had no pain in any location of her body Review of Systems Review of Systems: Unobtainable due to cognitive status Physical Exam Physical Exam: gen - frail, cachectic, agitated, confused, oriented to person only mouth - MM dry neck - no JVD heart - RRR, s1 s2 lungs - CTA b/l abd - ostomy left side of abdomen with soft, brown stool in the ostomy bag; NT, ND, soft, BS+, no peritoneal signs ext - no edema, pulses of feet 2+ b/l musculo - diffuse muscle wasting arms/legs psych - oriented to person only with severe agitation Results & Data Results & Data ([facility]) Vital Signs (Past 12 Hours) Vital Signs Temp Pulse Resp BP Pulse Ox O2 Del Method 09/08/22 10:11 37.7 C H 93 H 94 Room Air 09/08/22 08:09 37.4 C 96 H 18 159/72 H 93 Room Air Laboratory Results Laboratory Results - last 24 hr 09/08/22 09/08/22 09/08/22 10:26 10:26 10:26 WBC 8.44 RBC 4.30 Hgb 11.8 L Hct 35.3 MCV 82.1 MCH 27.4 MCHC 33.4 RDW Std Deviation 42.5 RDW Coeff of Jeremi 14.3 Plt Count 387 MPV 9.9 Immature Gran % (Auto) 0.6 Neut % (Auto) 75.4 Lymph % (Auto) 9.6 [place] % (Auto) 13.4 Eos % (Auto) 0.5 Baso % (Auto) 0.5 Neut # (Auto) 6.37 Lymph # (Auto) 0.[address] [place] # (Auto) 1.13 H Eos # (Auto) 0.04 Baso # (Auto) 0.04 Immature Gran # (Auto) 0.05 H Sodium 140 Potassium 3.3 L Chloride 102 Carbon Dioxide 26 Anion Gap 12 H BUN 4 L Creatinine 0.51 L Est Cr Clr Drug Dosing 61.1 Est GFR ( Amer) 105.3 Est GFR (Non-Af Amer) 90.8 BUN/Creatinine Ratio 7.8 L Glucose 113 H Calcium 8.7 C-Reactive Protein 14.13 H Procalcitonin 0.17 Adenovirus (PCR) B. pertussis DNA (PCR) B.parapertussis DNA PCR C. pneumoniae DNA (PCR) Coronavirus OC43 (PCR) Coronavirus HKU1 (PCR) Coronavirus 229E (PCR) SARS-CoV-2 (PCR) Coronavirus NL63 (PCR) Human Metapneumovir PCR Influenza Type A (PCR) Influenza Type B (PCR) M. pneumoniae (PCR) Parainfluenza 1 (PCR) Parainfluenza 2 (PCR) Parainfluenza 3 (PCR) Parainfluenza 4 (PCR) RSV (PCR) Entero/Rhino (PCR) 09/08/22 Unknown WBC RBC Hgb Hct MCV MCH MCHC RDW Std Deviation RDW Coeff of Jeremi Plt Count MPV Immature Gran % (Auto) Neut % (Auto) Lymph % (Auto) [place] % (Auto) Eos % (Auto) Baso % (Auto) Neut # (Auto) Lymph # (Auto) [place] # (Auto) Eos # (Auto) Baso # (Auto) Immature Gran # (Auto) Sodium Potassium Chloride Carbon Dioxide Anion Gap BUN Creatinine Est Cr Clr Drug Dosing Est GFR ( Amer) Est GFR (Non-Af Amer) BUN/Creatinine Ratio Glucose Calcium C-Reactive Protein Procalcitonin Adenovirus (PCR) Not Detected B. pertussis DNA (PCR) Not Detected B.parapertussis DNA PCR Not Detected C. pneumoniae DNA (PCR) Not Detected Coronavirus OC43 (PCR) Not Detected Coronavirus HKU1 (PCR) Not Detected Coronavirus 229E (PCR) Not Detected SARS-CoV-2 (PCR) Not Detected Coronavirus NL63 (PCR) Not Detected Human Metapneumovir PCR Not Detected Influenza Type A (PCR) Not Detected Influenza Type B (PCR) Not Detected M. pneumoniae (PCR) Not Detected Parainfluenza 1 (PCR) Not Detected Parainfluenza 2 (PCR) Not Detected Parainfluenza 3 (PCR) Not Detected Parainfluenza 4 (PCR) Not Detected RSV (PCR) Not Detected Entero/Rhino (PCR) Not Detected Diagnostic Findings Chest X-Ray 09/08/22 13:26 XR chest 1V portable HISTORY: 82 years-old Female persistent fever; pneumonia? Acute fever shortness of breath COMPARISON: Chest radiograph September 04, 2022 TECHNIQUE: AP view of the chest FINDINGS: Cardiomediastinal and hilar silhouettes are unchanged. Atherosclerosis of the aorta. No pneumothorax, pleural effusion, airspace consolidation or overt pulmonary edema. Bones appear grossly intact. IMPRESSION: No acute process. ACT 112: Negative or not required by law. The above report was generated using voice recognition software. It may contain grammatical, syntax or spelling errors. Electronically signed by: Dhaval Kearns M.D. 09/08/2022 2:42 PM PG Care Time/CCT Total # of Minutes Spent Total Time Spent with Patient: Total time spent is greater than 50% in coordination of care (as documented) at patient's floor/unit and/or counseling patient: Coding Level of Care Code 55590 SUB INP/OBS CARE 3/50MIN Diagnoses Fever R50.9 S/P colostomy Z93.3 Sigmoid volvulus K56.2 Dementia F03.90 Paroxysmal A-fib I48.0 Benign essential hypertension I10 Hyperlipidemia E78.5 Severe protein-calorie malnutrition E43 Failure to thrive
[2022-09-08 12:46] LABS: Adenovirus PCR Not Detected (NotDetected); Bordetella parapertussis PCR Not Detected (NotDetected); Bordetella pertussis PCR Not Detected (NotDetected); Chlamydia pneumoniae PCR Not Detected (NotDetected); Coronavirus 229E PCR Not Detected (NotDetected); Coronavirus CoV-2 (COVID19)PCR Not Detected (NotDetected); Coronavirus HKU1 PCR Not Detected (NotDetected); Coronavirus NL63 PCR Not Detected (NotDetected); Coronavirus OC43PCR Not Detected (NotDetected); Human Metapneumovirus PCR Not Detected (NotDetected); Influenza A PCR Not Detected (NotDetected); Influenza B PCR Not Detected (NotDetected); Mycoplasma pneumoniae PCR Not Detected (NotDetected); Parainfluenza Virus 1 PCR Not Detected (NotDetected); Parainfluenza Virus 2 PCR Not Detected (NotDetected); Parainfluenza Virus 3 PCR Not Detected (NotDetected); Parainfluenza Virus 4 PCR Not Detected (NotDetected); Respiratory Syncytial VirusPCR Not Detected (NotDetected); Rhinovirus/Enterovirus PCR Not Detected (NotDetected)
--- NOTE | 2022-09-08 14:43 | XRay Report ---
XR chest 1V portable HISTORY: 82 years-old Female persistent fever; pneumonia? Acute fever shortness of breath COMPARISON: Chest radiograph September 04, 2022 TECHNIQUE: AP view of the chest FINDINGS: Cardiomediastinal and hilar silhouettes are unchanged. Atherosclerosis of the aorta. No pneumothorax, pleural effusion, airspace consolidation or overt pulmonary edema. Bones appear grossly intact. IMPRESSION: No acute process. ACT 112: Negative or not required by law. The above report was generated using voice recognition software. It may contain grammatical, syntax o r spelling errors. Electronically signed by: Dhaval Kearns M.D. 09/08/2022 2:42 PM
[2022-09-08] MEDS: ACETAMINOPHEN 1,000 MG/100 ML VIAL IV PRN (18:34)
[2022-09-08] MEDS: POTASSIUM CHLORIDE 20 MEQ in SODIUM CHLORIDE 0.9% 1000ML 1,000 ML IV SCH (20:34)
[2022-09-09] MEDS: PIPERACILLIN/TAZOBACTAM 4.5 GM in DEXTROSE 5% 100 ML IV SCH (05:41)
[2022-09-09] MEDS: FAMOTIDINE 20 MG in SYRINGE 3 ML IV SCH ×2 (08:07→20:09)
[2022-09-09] MEDS ORDERED: MoRPHine SULFATE 2 MG/ML CARP IV STA (10:32)
[2022-09-09] MEDS: POTASSIUM CHLORIDE 20 MEQ in SODIUM CHLORIDE 0.9% 1000ML 1,000 ML IV SCH (10:35)
--- NOTE | 2022-09-09 10:45 | Hospitalist Progress Note ---
Date of Service September 09, 2022 Assessment & Plan (1) Acute metabolic encephalopathy: Plan: The patient is much more lethargic today. She was moaning, and seemed to have abdominal pain. She was tachycardic, tachypneic, and her overall status was much worse than ye . She had no PO intake at breakfast this am. Shortly after my bedside visit I ordered 2mg of morphine. Within minutes she was more comfortable and the moaning stopped. In light of her recent CT a/p showing irregularities of the rectal stump, elevated CRP, low-grade fevers 09/07 and 09/08, etc I am concerned her decline is due to an infectious process of the abdomen. I had spoken extensively with the pt's son last evening regarding her overall status. He and his sister had said consistently that they did not want to pursue any further aggressive care. I called pt's son this am and told him that his mother's status had changed considerably this morning with increased lethargy, moaning (suggesting she is in pain - perhaps the abdomen is the source), change in vitals, etc. I recommended, in light of advanced dementia, failure to thrive, and today's events - to transition to a comfort care pathway. He was in agreement with such. He plans to contact his sister & other family members that we are stopping routine care (IV fluids, IV zosyn, etc) and transitioning to comfort. Plan - comfort care orders placed. morphine 2mg IV q2h prn. ativan 0.25mg IV q6h prn. IV tylenol/zofran/pepcid. NC O2 as needed. When family arrives can ask them if they wish to call a local tombstone erector helper or food service specialist to offer spiritual support & blessing. (2) Fever: Plan: low-grade fevers on 09/07 and 09/08 cxr neg BioFire respiratory panel fully negative blood cx's neg recent u/a at time of admission fully normal crp elevated CT a/p at admission with irregularity of the rectal stump from recent sigmoid colectomy fevers occurred despite broad-spectrum IV antibiotics she is much worse today see #1 above stop IV zosyn (3) S/P colostomy: Plan: 2nd to sigmoid volvulus during previous hospitalization (4) Sigmoid volvulus: Plan: admission 08/23/2022 through 08/30/2022 for sigmoid volvulus s/p Exploratory Laparotomy, Reduction of sigmoid volvulus ,Sigmoid Colon Resection, End Colostomy, Repair of Umbilical Hernia by Dr Larson (5) Dementia: Plan: advanced son reported she has not recognized family members in quite some time (6) Paroxysmal A-fib: Plan: Likely converted to rapid a.fib this am (7) Benign essential hypertension: (8) Hyperlipidemia: (9) Severe protein-calorie malnutrition: Plan: near 10kg weight loss since her sigmoid volvulus surgery combination of advanced dementia, factors related to her complex surgery, ?underlying infectious process given the fevers, etc unlikely to have any meaningful improvement (10) Failure to thrive: Plan: severe 2nd to dementia and other factors listed above Plan cancel d/c to SNF transition patient to comfort care pathway cancel vitals, labs, etc son updated by phone morphine/ativan prn I updated the medical technologist chief of the SNF in which she resides ([facility]) total care activities nearly 60 minutes today given the transition to comfort care, multiple phone calls, etc Admission and Anticipated Discharge Date Admission Date: September 04, 2022 Subjective patient was moaning throughout the visit she had her eyes closed the entire time most of this morning staff report she has been less responsive than yesterday during the staff's AM assessment and changing her linens, etc - she did not open her eyes patient was tachypneic during the visit; tachycardic Review of Systems Review of Systems: Unobtainable due to reduced consciousness Physical Exam Physical Exam: gen - frail, cachectic, lethargic, moaning mouth - MM dry neck - no JVD heart - irregular, tachycardic, s1 s2 lungs - CTA b/l; tachypneic abd - ostomy left side of abdomen with soft, brown stool in the ostomy bag; ?tender left side of abdomen?; nondistended, BS+ ext - no edema, pulses of feet 2+ b/l musculo - diffuse muscle wasting arms/legs psych - lethargic Results & Data Results & Data ([facility]) Vital Signs (Past 12 Hours) Vital Signs Temp Pulse Pulse Resp BP Pulse Ox O2 Del Method 09/09/22 09:42 114 H 92 Room Air 09/09/22 07:51 36.9 C 98 H 16 176/68 H 91 Room Air Laboratory Results Laboratory Results - last 24 hr 09/08/22 09/08/22 09/08/22 10:26 10:26 10:26 WBC 8.44 RBC 4.30 Hgb 11.8 L Hct 35.3 MCV 82.1 MCH 27.4 MCHC 33.4 RDW Std Deviation 42.5 RDW Coeff of Jeremi 14.3 Plt Count 387 MPV 9.9 Immature Gran % (Auto) 0.6 Neut % (Auto) 75.4 Lymph % (Auto) 9.6 [place] % (Auto) 13.4 Eos % (Auto) 0.5 Baso % (Auto) 0.5 Neut # (Auto) 6.37 Lymph # (Auto) 0.81 L [place] # (Auto) 1.13 H Eos # (Auto) 0.04 Baso # (Auto) 0.04 Immature Gran # (Auto) 0.05 H Sodium 140 Potassium 3.3 L Chloride 102 Carbon Dioxide 26 Anion Gap 12 H BUN 4 L Creatinine 0.51 L Est Cr Clr Drug Dosing 61.1 Est GFR ( Amer) 105.3 Est GFR (Non-Af Amer) 90.8 BUN/Creatinine Ratio 7.8 L Glucose 113 H Calcium 8.7 C-Reactive Protein 14.13 H Procalcitonin 0.17 Adenovirus (PCR) B. pertussis DNA (PCR) B.parapertussis DNA PCR C. pneumoniae DNA (PCR) Coronavirus OC43 (PCR) Coronavirus HKU1 (PCR) Coronavirus 229E (PCR) SARS-CoV-2 (PCR) Coronavirus NL63 (PCR) Human Metapneumovir PCR Influenza Type A (PCR) Influenza Type B (PCR) M. pneumoniae (PCR) Parainfluenza 1 (PCR) Parainfluenza 2 (PCR) Parainfluenza 3 (PCR) Parainfluenza 4 (PCR) RSV (PCR) Entero/Rhino (PCR) SARS-CoV-2, RNA, NAAT 09/08/22 09/09/22 Unknown Unknown WBC RBC Hgb Hct MCV MCH MCHC RDW Std Deviation RDW Coeff of Jeremi Plt Count MPV Immature Gran % (Auto) Neut % (Auto) Lymph % (Auto) [place] % (Auto) Eos % (Auto) Baso % (Auto) Neut # (Auto) Lymph # (Auto) [place] # (Auto) Eos # (Auto) Baso # (Auto) Immature Gran # (Auto) Sodium Potassium Chloride Carbon Dioxide Anion Gap BUN Creatinine Est Cr Clr Drug Dosing Est GFR ( Amer) Est GFR (Non-Af Amer) BUN/Creatinine Ratio Glucose Calcium C-Reactive Protein Procalcitonin Adenovirus (PCR) Not Detected B. pertussis DNA (PCR) Not Detected B.parapertussis DNA PCR Not Detected C. pneumoniae DNA (PCR) Not Detected Coronavirus OC43 (PCR) Not Detected Coronavirus HKU1 (PCR) Not Detected Coronavirus 229E (PCR) Not Detected SARS-CoV-2 (PCR) Not Detected Coronavirus NL63 (PCR) Not Detected Human Metapneumovir PCR Not Detected Influenza Type A (PCR) Not Detected Influenza Type B (PCR) Not Detected M. pneumoniae (PCR) Not Detected Parainfluenza 1 (PCR) Not Detected Parainfluenza 2 (PCR) Not Detected Parainfluenza 3 (PCR) Not Detected Parainfluenza 4 (PCR) Not Detected RSV (PCR) Not Detected Entero/Rhino (PCR) Not Detected SARS-CoV-2, RNA, NAAT Pending PG Care Time/CCT Total # of Minutes Spent Total Time Spent with Patient: Total time spent is greater than 50% in coordination of care (as documented) at patient's floor/unit and/or counseling patient: Coding Level of Care Code 00227 SUB INP/OBS CARE 3/50MIN Diagnoses Acute metabolic encephalopathy G93.41 Fever R50.9 S/P colostomy Z93.3 Sigmoid volvulus K56.2 Dementia F03.90 Paroxysmal A-fib I48.0 Benign essential hypertension I10 Hyperlipidemia E78.5 Severe protein-calorie malnutrition E43 Failure to thrive
[2022-09-09] MEDS: MoRPHine SULFATE 2 MG/ML CARP IV PRN ×2 (15:05→21:28)
[2022-09-10] MEDS: LORazepam 2 MG/1 ML VIAL IV PRN ×2 (01:16→21:13)
[2022-09-10] MEDS: MoRPHine SULFATE 2 MG/ML CARP IV PRN ×5 (05:30→18:38)
[2022-09-10] MEDS: FAMOTIDINE 20 MG in SYRINGE 3 ML IV SCH ×2 (08:03→21:07)
--- NOTE | 2022-09-10 12:27 | Surgery Progress Note ---
Date of Service September 10, 2022 Assessment & Plan (1) S/P colostomy: Plan: S/p sigmoid colon resection with end colostomy for sigmoid volvulus on 08/23/22 -returned to hospital on 09/04/[address] scan questioning ?rectal stump leak. no surgical plans necessitated as was diverted -due to failure to thrive along with compounding severe dementia-hospitalists had long discussion with family and plans made to move forward with comfort care over the weekend -unfortunately nothing further to offer surgically -family at bedside, offered to answer any questions -appreciate hospitalists assistance and care for the patient as above. doubt stump leak...has similar appearance radiographically as at time of surgery. normal wbc. afebrile. I believe multi-factoral failure to thrive. agree with plans for comfort care. will be available for any questions. (2) Failure to thrive: (3) Change in mental status: Admission and Anticipated Discharge Date Admission Date: September 04, 2022 Subjective Patient allowed to rest- placed on comfort measures. Physical Exam Physical Exam: sleeping, eyes closed. mouth open Results & Data ([facility]) Vital Signs (Past 12 Hours) Vital Signs Temp Pulse Resp BP Pulse Ox O2 Del Method 09/10/22 07:58 36.6 C 92 H 25 H 100/60 88 L Room Air PG Care Time/CCT Total # of Minutes Spent Total Time Spent with Patient: Total time spent is greater than 50% in coordination of care (as documented) at patient's floor/unit and/or counseling patient: Coding Level of Care Code None Diagnoses S/P colostomy Z93.3 Failure to thrive Change in mental status R41.82
[2022-09-10] MEDS: ACETAMINOPHEN 1,000 MG/100 ML VIAL IV PRN (19:34)
--- NOTE | 2022-09-10 20:58 | Hospitalist Progress Note ---
Date of Service September 10, 2022 Assessment & Plan (1) Need for comfort care: Plan: transitioned to comfort care pathway on 09/09/22 AM cont morphine + ativan prn support given to daughter at bedside offered to call the local [employer] [facility] to have the mushroom grower come for spiritual visit and prayer - daughter to let us know information (2) Palliative care patient: (3) Acute metabolic encephalopathy: Plan: in setting of advanced dementia (4) Fever: Plan: low-grade fevers on 09/07 and 09/08 despite IV zosyn abx d/c -->transitioned to comfort care on 09/09/22 source of fever - intra-abdominal source? other? 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/23/2022 through 08/30/2022 for sigmoid volvulus s/p Exploratory Laparotomy, Reduction of sigmoid volvulus ,Sigmoid Colon Resection, End Colostomy, Repair of Umbilical Hernia by Dr Larson (7) Dementia: Plan: advanced son reported she has not recognized family members in quite some time (8) Paroxysmal A-fib: (9) Benign essential hypertension: (10) Hyperlipidemia: (11) Severe protein-calorie malnutrition: Plan: near 10kg weight loss since her sigmoid volvulus surgery combination of advanced dementia, factors related to her complex surgery, ?underlying infectious process given the fevers, etc (12) Failure to thrive: Plan: severe 2nd to dementia and other factors listed above Plan cont comfort care pathway Admission and Anticipated Discharge Date Admission Date: September 04, 2022 Subjective pt continues to require several doses of morphine + ativan for comfort minimally awake during my visit today - she was moaning did not follow commands daughter at bedside UOP has dropped considerably Review of Systems Review of Systems: Unobtainable due to reduced consciousness Physical Exam Physical Exam: gen - frail, cachectic, lethargic, mildly moaning mouth - MM dry neck - no JVD heart - regular rhythm today but tachycardic, s1 s2 lungs - CTA b/l; tachypneic abd - ostomy left side of abdomen with brown stool in the ostomy bag; BS+ ext - no edema, pulses of feet 2+ b/l PG Care Time/CCT Total # of Minutes Spent Total Time Spent with Patient: Total time spent is greater than 50% in coordination of care (as documented) at patient's floor/unit and/or counseling patient: Coding Level of Care Code 72848 SUB INP/OBS CARE 09/26MIN Diagnoses Need for comfort care Palliative care patient Z51.5 Acute metabolic encephalopathy G93.41 Fever R50.9 S/P colostomy Z93.3 Sigmoid volvulus K56.2 Dementia F03.90 Paroxysmal A-fib I48.0 Benign essential hypertension I10 Hyperlipidemia E78.5 Severe protein-calorie malnutrition E43 Failure to thrive
[2022-09-11] MEDS: MoRPHine SULFATE 2 MG/ML CARP IV PRN ×2 (04:31→15:14)
[2022-09-11] MEDS: FAMOTIDINE 20 MG in SYRINGE 3 ML IV SCH ×2 (07:54→20:14)
[2022-09-11] MEDS: LORazepam 2 MG/1 ML VIAL IV PRN ×2 (10:41→22:56)
--- NOTE | 2022-09-11 16:38 | Hospitalist Progress Note ---
Date of Service September 11, 2022 Assessment & Plan (1) Need for comfort care: Plan: transitioned to comfort care pathway on 09/09/22 AM cont morphine + ativan prn (2) Palliative care patient: (3) Acute metabolic encephalopathy: Plan: in setting of advanced dementia (4) Fever: Plan: low-grade fevers on 09/07 and 09/08 despite IV zosyn abx d/c -->transitioned to comfort care on 09/09/22 source of fever - intra-abdominal source? 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/23/2022 through 08/30/2022 for sigmoid volvulus s/p Exploratory Laparotomy, Reduction of sigmoid volvulus ,Sigmoid Colon Resection, End Colostomy, Repair of Umbilical Hernia by Dr Larson (7) Dementia: Plan: advanced son reported she has not recognized family members in quite some time (8) Paroxysmal A-fib: (9) Benign essential hypertension: (10) Hyperlipidemia: (11) Severe protein-calorie malnutrition: Plan: near 10kg weight loss since her sigmoid volvulus surgery combination of advanced dementia, factors related to her complex surgery, ?underlying infectious process given the fevers, etc (12) Failure to thrive: Plan: severe 2nd to dementia and other factors listed above Plan cont comfort care pathway Dispo-can likely be transitioned back to [facility] as she is still making urine, awake during day in between doses of meds. Not clear that she will pass away in the next few days. Admission and Anticipated Discharge Date Admission Date: September 04, 2022 Subjective Pt has been awake off and on as per RN but has some agitation and signs of pain, is asleep when I saw her after getting ativan and morphine. Review of Systems Review of Systems: Unobtainable due to cognitive status Physical Exam Constitutional: + thin; no acute distress obtunded Neck: trachea midline, no thyromegaly Respiratory: normal respiratory effort, lungs clear to auscultation Cardiovascular: RRR, no murmur, no edema Results & Data Results & Data ([facility]) Vital Signs (Past 12 Hours) Vital Signs Temp Pulse Resp BP Pulse Ox O2 Del Method 09/11/22 07:50 Room Air 09/11/22 07:06 37.1 C 98 H 20 110/58 L 91 Room Air PG Care Time/CCT Total # of Minutes Spent Total Time Spent with Patient: Total time spent is greater than 50% in coordination of care (as documented) at patient's floor/unit and/or counseling patient: Coding Level of Care Code 90153 SUB INP/OBS CARE 09/26MIN Diagnoses Need for comfort care Palliative care patient Z51.5 Acute metabolic encephalopathy G93.41 Fever R50.9 S/P colostomy Z93.3 Sigmoid volvulus K56.2 Dementia F03.90 Paroxysmal A-fib I48.0 Benign essential hypertension I10 Hyperlipidemia E78.5 Severe protein-calorie malnutrition E43 Failure to thrive
[2022-09-12] MEDS: LORazepam 2 MG/1 ML VIAL IV PRN (04:06)
[2022-09-12] MEDS: MoRPHine SULFATE 2 MG/ML CARP IV PRN (05:24)
[2022-09-12] MEDS: FAMOTIDINE 20 MG in SYRINGE 3 ML IV SCH (07:43)
--- NOTE | 2022-09-12 08:41 | Surgery Progress Note ---
Date of Service September 12, 2022 Assessment & Plan (1) Palliative care patient: Plan: agree with comfort care. multi-factoral failure to thrive nothing to add surgically please call if we can assist in any way. (2) Need for comfort care: Admission and Anticipated Discharge Date Admission Date: September 04, 2022 Subjective pt seen. unable to cooperate with exam due to severe dementia. Physical Exam Physical Exam: awake but not oriented abd: soft. mild distension. wound looks good. minimal tenderness. no peritonitis. Results & Data ([facility]) Vital Signs (Past 12 Hours) Vital Signs Temp Pulse Resp BP Pulse Ox O2 Del Method 09/12/22 07:37 36.8 C 98 H 14 155/75 H 92 Room Air PG Care Time/CCT Total # of Minutes Spent Total Time Spent with Patient: Total time spent is greater than 50% in coordination of care (as documented) at patient's floor/unit and/or counseling patient: Coding Level of Care Code 66766 Post Operative Follow-Up Diagnoses Palliative care patient Z51.5 Need for comfort care
[2022-09-12] MEDS: MoRPHine SULFATE 10 MG/0.5 ML UDP PO PRN ×2 (10:45→15:26)
--- NOTE | 2022-09-12 11:03 | Discharge Summary ---
Date of Service September 12, 2022 Admission HPI Per Admitting Provider The patient is an 82-year-old female status post surgery while on the surgical service for bowel obstruction and sigmoid volvulus with colostomy formation on 08/31/2022. She was sent to [facility] group home facility post [facility] admission. She was referred to the emergency department today due to no ostomy output for the past 4 days and a decline in mental status from her baseline with poor oral intake. The patient herself is a poor historian, and is not able to contribute to her HPI or review of systems. CT scan of abdomen pelvis showed concerns regarding possible rectal stump leak. The patient was assessed by general surgery while in ED, who felt that there was not a need for surgical intervention, and deferred admission to the hospitalist service for empiric IV antibiotics Principal Diagnosis Acute metabolic encephalopathy, Decreased ostomy output,possible intra-abdominal infection Comfort measures only Discharge Exam Constitutional + thin; no acute distress awake, verbally responds to some questions with dysarthric speech, follows some simple commands Eyes + anicteric sclerae Neck trachea midline, no thyromegaly Respiratory normal respiratory effort, lungs clear to auscultation Cardiovascular RRR, no murmur, no edema Gastrointestinal (Abdomen) Inspection/Auscultation: + abdomen abnormal to inspection (midline incision healing,ostomy bag with liquid stool) some +TTP RLQ without guarding or rebound Discharge Data Allergies Allergy/AdvReac Type Severity Reaction Status Date / Time No Known Allergies Allergy Unverified 09/04/22 20:10 Consultations 09/04/22 21:52 ED Decision to Admit Stat Ordered Studies 09/04/22 19:33 CT abd pelvis IV con only Stat CT head/brain wo con Stat Hospital Course (1) Need for comfort care: transitioned to comfort care pathway on 09/09/22 AM cont morphine po/SL + ativan SL prn (2) Palliative care patient: (3) Acute metabolic encephalopathy: in setting of advanced dementia (4) Fever: low-grade fevers on 09/07 and 09/08 despite IV zosyn abx d/c -->transitioned to comfort care on 09/09/22 source of fever - intra-abdominal source? 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underlying infectious process given the fevers, etc (12) Failure to thrive: severe 2nd to dementia and other factors listed above Plan cont comfort care pathway Dispo-will be transitioned back to [facility] as she is still making urine, awake during day in between doses of meds. Not clear that she will pass away in the next few days. Discussed her care at length with her son, Thomas, on the phone on the day of discharge Total Time Total Time Spent Total Time Spent (In Minutes): 35 min Discharge Plan Discharge Items Patient Disposition: Hospice - Medical Facility Reason For Visit: MS CHANGE, DECREASED OSTOMY OUTPUT Discharge Diagnosis: Acute metabolic encephalopathy, s/p ostomy formation,poor ostomy output Comfort measures only Activity: As commented below Lifting: None Bathing: No limitations Exercise/Sports: Rest today Non-emergency contact: Primary Care Provider Call non-emergency contact if: you have any medication questions, your symptoms worsen, your pain is not controlled and your pain is worsening Follow-up/Referrals: [facility] [Primary Care Provider] - Diet: Other - See Diet Comment Diet Comment: Diet as tolerated for comfort Addtl Attending Provider Instructions: You were admitted for worsening ostomy output and increasing confusion. You may have had an infection and were treated initially with IV antibiotics without much improvement. Your condition worsened and decision was made to pursue comfort measures only. You can take liquid morphine under the tongue for pain and breathlessness. You can take lorazepam crushed and mixed with water as a slurry under the tongue as well as needed for anxiety or agitation. Pending Studies at Discharge: No Stand-Alone Forms: My [facility] Skilled Items Patient informed of condition?: Yes DNR: Yes Discharge Level of Care: Skilled Communicable Disease: No Discharge Prognosis: Deteriorating Lines: None Urinary Catheter: Yes Medications and DC Order Prescriptions: New morphine concentrate 100 mg/5 mL (20 mg/mL) Solution 5 mg PO Q4H Qty: 30 0RF Rx Instructions: and q2h prn for breakthrough pain or breathlessness lorazepam 1 mg tablet 1 mg sublingual Q8H PRN (Reason: anxiety or agitation) Qty: 7 0RF Discontinued calcium carbonate-vitamin D3 600 mg(1,500mg) -400 unit capsule 1 cap PO BID Qty: 180 3RF cetirizine 10 mg tablet 10 mg PO DAILY Qty: 90 3RF donepezil 10 mg tablet 10 mg PO DAILY Rx Instructions: TAKE ONE TABLET BY MOUTH DAILY. *MEMORY* doxepin 6 mg tablet 6 mg PO HS levothyroxine 75 mcg tablet 75 mcg PO DAILY potassium chloride 20 mEq tablet,ER particles/crystals 40 meq PO BID melatonin 3 mg tablet 3 mg PO HS Multivitamin 50 Plus Tablet 1 tab PO DAILY nitroglycerin 0.4 mg tablet, sublingual 0.4 mg SL Q5M PRN (Reason: Chest Pain) memantine 10 mg tablet 10 mg PO Q12 protein supplement Liquid 1 ea PO DAILY Rx Instructions: 60 ml acetaminophen 325 mg tablet 650 mg PO Q6 MDD 3g PRN (Reason: Fever Or Pain) metoprolol tartrate 25 mg Tablet 25 mg PO BID 30 Days Qty: 60 0RF mirtazapine 15 mg Tablet 15 mg PO HS 30 Days Qty: 30 0RF ergocalciferol (vitamin D2) 50,000 unit capsule 50,000 units PO UD Rx Instructions: start 09/06/22 weekly menthol-zinc oxide [Calmoseptine] 0.44-20.6 % Ointment 1 applic TOPICAL QS Rx Instructions: apply to inner thigh and buttocks acetaminophen 325 mg tablet 650 mg PO QAM Discharge Orders: Discharge Order (Routine); Ordered 09/12/22 Ordered By: Sushila Katz Admission Data Admit Date/Time: 09/04/22 22:55 Attending Provider: Sushila Katz Admit Provider: Alan Danielson Primary Care Provider: Rajendra Betancourt Other Providers: Alan Danielson ; [place],Rajendra ; [facility] Coding Level of Care Code HOSP INP/OBS DISCH >30 MIN Diagnoses Need for comfort care Palliative care patient Z51.5 Acute metabolic encephalopathy G93.41 Fever R50.9 S/P colostomy Z93.3 Sigmoid volvulus K56.2 Dementia F03.90 Paroxysmal A-fib I48.0 Benign essential hypertension I10 Hyperlipidemia E78.5 Severe protein-calorie malnutrition E43 Failure to thrive
== END 2022-09-12 16:27 | disposition hospice, inpatient (51) | DRG 393 ==
LOC: ED 19:10 → SUATTDRO 22:55 → 3W 22:55